=== PATIENT | female | born 1995 | race Caucasian/White ===

== ENCOUNTER → 2019-02-09 16:25 | Outpatient (CLI) | payer MEDICAID, SELFPAY ==
[2016-11-14 11:53] VITALS: BMI 27.9
== END ==
PROVIDERS: Visit Provider Obstetrics & Gynecology
DX: Z12.4 Encounter for screening for malignant neoplasm of cervix (principal)
CPT/HCPCS: 88175; G0145

== ENCOUNTER → 2019-09-13 13:40 | Outpatient (CLI) | payer MEDICAID, SELFPAY ==
[2016-11-14 11:53] VITALS: BMI 27.9
[2019-09-13 14:06] LABS: Internal QC Validated? YES +Cl - CLEAR BKGD
[2019-09-13 14:23] LABS: Pregnancy, Serum, hCG Quali. POSITIVE Negative (0-9 Nonpreg); hCG Titer Quant., Serum 26 mIU/mL (1-3)
--- OUTSIDE RECORDS SUMMARY | 2020-01-23 09:41 | XMS RPT_ITS | CCD ---
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 Negative for bowel obstruction, appendicitis or diverticu litis. [employer] Workstation ID: [id number] EXAMINATION: CT 03-08-2019 [facility] KIDNEY STONE ([id number]) 03/08/2019 HISTORY: ORDERING SYSTEM PROVIDED HISTORY: pain, TECHNOLOGIST PROVIDED HISTORY: Illness/Other Reason for exam: RT. SIDE AND FLANK PAIN. Encounter Type: Unknown Additional signs and symptoms: UNKNOWN ORDERING SYSTEM PROVIDED DIAGNOSIS CODES: COMPARISON: None. TECHNIQUE: Dose reduction techniques were achieved by using automated exposure control and/or adjustment of mA and/or kV according to patient size and/or use of iterative reconstruction technique. FINDINGS: CT ABDOMEN: Visualized portions of lower cardiac chambers, posterior mediastinal structures and lung bases demonstrate no acute abnormality. Liver, spleen, gallbladder, pancreas and adrenals appear unremarkable. Subcentimeter bilateral renal calculi are noted. An upper pole stone on the left within the calyx measures 3 mm in diameter. A stone caudal to this on image 25 is faintly noted measuring 2 mm. There is additional punctate 1 to 2 mm stone on image 30. There are additional 2 mm stones at the inferior pole calices also noted. On the right there are at least 2 punctate 1 to 2 mm stones at the upper pole identified. Midpole similar-appearing stone is seen on image 35. There are at least 3 stones at the inferior pole, largest measuring 3 mm. There is no hydronephrosis or ureterolithiasis. CT PELVIS: The urinary bladder is partially distended. The uterus is anteverted in position and enlarged measuring 11.6 x 5.7 x 7.8 cm. Trace volume of fluid within the cul-de-sac noted. Subcentimeter left-sided calcified pelvic phleboliths are noted. The ovaries appear unremarkable. Small umbilical hernia contains fat without bowel. Negative for appendicitis or diverticulitis. Aorta demonstrates normal caliber. No significantly enlarged adenopathy suspected. Multilevel lower thoracic and lumbar Schmorl's node formation is noted. There is disc space narrowing with vacuum disc phenomena formation and small disc bulge/protrusion at L4-L5. L4 and L5 limbus vertebra are noted incidentally. No acute osseous abnormality. Mild periarticular sclerosis about the SI joints, greater toward the iliac side noted. Albumin [Mass/Vol] 3.9 3.2 - 5.2 g/d 03-08-2019 [facility] L (57877) ALP [Catalytic 82 40 - 140 U/L 03-08-2019 [facility] activity/Vol] (14510 ) ALT [Catalytic 21 14 - 65 U/L 03-08-2019 [facility] activity/Vol] (98707 ) Anion gap 10 10 - 20 mmo [facility] [Moles/Vol] l/L (75626) AST [Catalytic 12 0 - 45 U/L 03-08-2019 [facility] activity/Vol] (42738 ) Bilirubin 0.3 0 - 1.3 mg/ 03-08-2019 [facility] h [Mass/Vol] dL (30127) Bilirubin.conjugat <0.1 0 - 0.4 mg/ 03-08-2019 [facility] ed [Mass/Vol] dL (21517 ) Calcium [Mass/Vol] 8.4 8.4 - 10.2 mg/ 03-08-2019 [facility] dL (71241) Chloride 105 98 - 108 mmo 03-08-2019 [facility] [Moles/Vol] l/L (65786) Creatinine 0.73 0.4 - 1.1 mg/ 03-08-2019 [facility] th [Mass/Vol] dL (33399) GFR/1.73 sq M The eGFR should be 019 [facility] predicted among used for monitoring (74839) non-blacks MDRD renal function only (S/P/Bld) [Vol and not for rate/Area] medication dosing. GFR/1.73 sq 116 >=60 03-08-2019 [facility] lth M.predicted mL/min/1.73 (97755 ) CKD-EPI (S/P/Bld) m2 [Vol rate/Area] Glucose [Mass/Vol] 112 65 - 99 mg/ High 03-08-2019 [facility] dL (45396) HCO3 [Moles/Vol] 26 21 - 32 mmo [facility] l/L (49122) Interpretation and Abnormal 03-08-2019 [facility] review of (48090) laboratory results Interpretation and Normal 03-08-2019 [facility] review of (76397) laboratory results Lipase [Catalytic 61 73 - 393 U/L Low 03-08-2019 [facility] activity/Vol] (96322 ) Potassium 3.9 3.5 - 5.1 mmo 03-08-2019 [facility] [Moles/Vol] l/L (09366) Protein [Mass/Vol] 7.1 6 - 8 g/d 03-08-2019 [facility] L (82767) Sodium [Moles/Vol] 137 135 - 145 mmo 03-08-2019 [facility] l/L (74636) Urea nitrogen 13 8 - 25 mg/ [facility] [Mass/Vol] dL (43279) Urea 17.8 OTH - OTH mg/ [facility] nitrogen/Creatinin mg ( 29589) e [Mass ratio] Bacteria Auto Ql Rare None Seen Abnormal 03-08-2019 [facility] (U) /hpf (76862) Bilirubin Ql (U) Negative Negative 03-08-2019 [facility] (36923) Calcium oxalate Rare None Seen Abnormal 03-08-2019 [facility] crystals Computer /hpf (4 3215) assisted (U) [#/Area] Clarity Hazy Clear Abnormal 03-08-2019 [facility] Refractometry (58244 ) automated (U) Color (U) Yellow Colorless, 03-08-2019 [facility] Yellow (48529) Epithelial 6 OTH - OTH High 03-08-2019 [facility] th cells.squamous (4321 5) Auto (Urine sed) [#/Area] Glucose Auto test Negative Negative 03-08-2019 [facility] strip (U) mg/dL (02640) [Mass/Vol] HCG ( Negative Negative 03-08-2019 [facility] test) Ql (U) (25580) Hemoglobin Auto Moderate Negative Abnormal 03-08-2019 [facility]Health test strip Ql (U) (4 3215) Interpretation and Abnormal 03-08-2019 [facility] review of (95066) laboratory results Interpretation and Normal 03-08-2019 [facility] review of (52497) laboratory results Ketones (U) Negative Negative [facility]-08-[facility] [Mass/Vol] mg/dL (92590) Leukocyte esterase Trace Negative Abnormal 03-08-2019 [facility] Auto test strip Ql ( 17321) (U) Mucus Auto (Urine Few None Seen, Abnormal 03-08-2019 [facility] sed) [#/Area] Rare /lpf (37052 ) Nitrite Auto test Negative Negative 03-08-2019 [facility] strip Ql (U) (27628) pH (U) 5.0 OTH - OTH [pH 03-08-2019 [facility] ] (82323) Protein (U) Negative Negative mg/ 03-08-2019 [facility] [Mass/Vol] mg/dL dL (35773) RBC Auto (Urine 46 OTH - OTH High 03-08-2019 [facility] sed) [#/Area] (89787 ) Specific gravity 1.029 OTH - OTH High 03-08-2019 [facility] (U) [Rel density] (4 3215) Transitional cells <1 OTH - OTH 03-08-2019 [facility] Computer assisted (4 3215) (U) [#/Area] Urobilinogen (U) <2.0 <2.0 mg/dL 03-08-2019 [facility] [Mass/Vol] (11087) WBC Auto (Urine 3 OTH - OTH 03-08-2019 [facility] sed) [#/Area] (30156 ) Microscopic 03-08-2019 [facility] lth examination is (4321 5) performed on all urinalysis samples and only positive findings are reported. The test for blood on the chemical analytic portion of urinalysis may also be positive due to hemoglobinuria and myoglobinuria and if red blood cells are present they are quantified by microscopic examination. Basophils (Bld) 0.05 OTH - OTH 10* 03-08-2019 [facility] [#/Vol] 3/u (69474) L Basophils/100 WBC 0.3 % 03-08-2019 [facility] (Bld) (51006) Eosinophils (Bld) 0.04 OTH - OTH 10* 03-08-2019 [facility] [#/Vol] 3/u (07212) L Eosinophils/100 0.3 % 03-08-2019 [facility] WBC (Bld) (88853) Erythrocyte 12.2 11.6 - 14.8 % 03-08-2019 [facility] ealth distribution width ( 60928) (RBC) [Entitic vol] Hematocrit (Bld) 39.2 36 - 46 % 03-08-2019 [facility] [Volume fraction] (4 3215) Hemoglobin (Bld) 13.3 12 - 16 g/d 03-08-2019 [facility] [Mass/Vol] L (96084) Immature 0.11 OTH - OTH 10* 03-08-2019 [facility] granulocytes (Bld) 3/u ( 27322) [#/Vol] L Immature 0.70 % 03-08-2019 [facility] granulocytes/100 (43 215) WBC (Bld) Comment: The IG parameter is the perc entage of metamyelocytes, myelocytes, and promyelocytes. Interpretation and Abnormal 03-08-2019 [facility] (68379) review of laboratory results Lymphocytes (Bld) 1.47 OTH - OTH 10*3/uL 03-08-2019 [facility] (98936) [#/Vol] Lymphocytes/100 WBC 9.5 % 03-08-2019 [facility] (89035) (Bld) MCH (RBC) [Entitic 31.3 26 - 34 pg 03-08-2019 [facility] (97435) mass] MCHC (RBC) [Mass/Vol] 33.9 31 - 37 g/dL 03-08-20 19 [facility] (29510) MCV (RBC) [Entitic vol] 92.2 80 - 100 fL 2018 [facility] (28690) Monocytes (Bld) [#/Vol] 1.05 OTH - OTH 10*3/uL High 2018 [facility] (72338) Monocytes/100 WBC (Bld) 6.8 % 2018 [facility] (01359) Neutrophils (Bld) 12.79 OTH - OTH 10*3/uL High 03-08-2019 [facility] (78612) [#/Vol] Neutrophils/100 WBC 82.4 % 03-08-2019 [facility] (09664) (Bld) Nucleated RBC (Bld) 0.00 OTH - OTH 10*3/uL 03-08-2019 [facility] (20713) [#/Vol] Nucleated RBC/100 WBC 0.0 % 03-08-20 19 [facility] (60540) (Bld) [Ratio] Platelet mean volume 10.7 9 - 15.5 fL 9 [facility] (24867) (Bld) [Entitic vol] Platelets (Bld) [#/Vol] 260 OTH - OTH 10*3/uL [facility] (65864[facility] RBC (Bld) [#/Vol] 4.25 OTH - OTH 10*6/uL 03-08-2019 [facility] (45662) WBC (Bld) [#/Vol] 15.51 OTH - OTH 10*3/uL High 03-08-2019 [facility] (49310) progress on 2018-06 Protein mass conc HNO ID: [id number] Normal [facility] Author: Alida Vasquez (Pharmacist) [facility] Service: Pharmacy ([phone]) Author Type: Pharmacist Type: Progress Notes Filed: 06/23/2018 9:39 AM Note Text: PHARMACY EMERGENCY DEPARTMENT CULTURE CALLBACK Patient Name:Stefani Padron Admission Date: 06/21/2018 Date of Callback: 06/23/2018 Patient Phone Number: NA Patient reviewed with: NA ALLERGIES No Known Allergies Source of Result: Results List Time/Date of Result: Type of Culture(s): wound Culture Results: Positive: mrsa Lab Results: n/a Home Medication List: Prior to Admission medications as of 06/21/18 1323 Medication Sig Last Dose Taking doxycycline monohydrate (AVIDOXY) 100 mg tablet Take 1 table t by mouth twice daily for 5 days. chlorhexidine (ANTISEPTIC SKIN CLNSR,CHLORHE,) 4 % external liquid Apply 1 application to affected area once daily as needed for up to 7 days. Change in treatment needed: No Action Taken: No further action needed Please page/call with any issues or questions. Electronic signature: LIZETT ANDERSON June 23, 2018 9:38 AM Pager/Extension: [phone] Protein mass conc HNO ID: [id number] Normal [facility] Author: Yolette Kuhn (Pharmacist) [facility] Service: ? ([id number]) Author Type: Pharmacist Type: Progress Notes Filed: 06/26/2018 2:35 PM Note Text: PHARMACY EMERGENCY DEPARTMENT CULTURE CALLBACK Patient Name:Stefani Padron Admission Date: 06/21/2018 Date of Callback: 06/26/2018 Patient Phone Number: na Patient reviewed with: na ALLERGIES No Known Allergies Source of Result: Results List Time/Date of Result: 06/26/18 Type of Culture(s): wound Culture Results: Positive: MRSA Lab Results: n/a Home Medication List: Prior to Admission medications as of 06/21/18 1323 Medication Sig Last Dose Taking doxycycline monohydrate (AVIDOXY) 100 mg tablet Take 1 table t by mouth twice daily for 5 days. chlorhexidine (ANTISEPTIC SKIN CLNSR,CHLORHE,) 4 % external liquid Apply 1 application to affected area once daily as needed for up to 7 days. Change in treatment needed: No Action Taken: No further action needed Final results reviewed. Pt prescribed doxycycline at dischar ge. Therapy appropriate per culture. No further intervention necessary. Please page/call with any issues or questions. Electronic signature: YOLETTE KUHN, PHARMACIST June 26, 2018 2:35 PM Pager/Extension: [phone] ed prov note on 201 12-08-16 Protein mass conc HNO ID: [id number] Normal [facility] Author: Court Rene MD [facility] Service: Emergency Medicine ([id number]) Author Type: Physician Type: ED Provider Notes Filed: 06/23/2018 5:10 AM Note Text: ED Provider Note Patient Name: Anders Padron SERVICE DATE: 06/21/18 History Patient presents with: Abscess The patient is a 23 year old female with a significant past medical history of right axillary abscesses status post IANDD on 06/09, who presents to the ED for evaluation of 2 right axillary lesion s over the past 2 days. She has wounds and abscess formation since the age of 8. She has had a higher frequency of these boils over the past 4 months, but she has never been prescribed antibiotics. She states she tr ies to clean the area as much as possible before shaving her armpits ever y 2-3 days. The area is exquisitely tender, fluctuant, and erythematous. There is a small pustule noted, which is not actively draining. The pat ient is a smoker but she does not have additional wound healing abnorm alities. The patient's symptoms are made worse with palpation. The patien t has not tried anything for her symptoms. The patient denies fever, c hills, nausea, vomiting, chest pain, dyspnea, or additional complaints. PAST MEDICAL HISTORY Diagnosis Date - Depression - Kidney stones PAST SURGICAL HISTORY Procedure Laterality Date - REMOVAL OF TONSILS,<12 Y/O Tonsillectomy FAMILY HISTORY Problem Relation Age of Onset - other (kidney stones) Mother - Heart Maternal Grandmother Heart stent - Lipids Maternal Grandmother Social History Tobacco Use - Smoking status: Current Every Day Smoker Types: Cigarettes - Smokeless tobacco: Never Used - Tobacco comment: vapor Substance and Sexual Activity - Alcohol use: No - Drug use: No - Sexual activity: Not on file ALLERGIES No Known Allergies Review of Systems Constitutional: Positive for fatigue. Negative for chills an d fever. Respiratory: Negative for shortness of breath and wheezing. Cardiovascular: Negative for chest pain. Gastrointestinal: Negative for abdominal pain, nausea and vo miting. Musculoskeletal: Negative for joint swelling and myalgias. Skin: Positive for wound. Negative for rash. Allergic/Immunologic: Negative for immunocompromised state. Neurological: Negative for weakness and numbness. Physical Exam BP 131/77 Pulse 87 Temp 98.2 Resp 16 Ht 5' 6 (1.68m ) Wt 135 lb (61.2kg) SpO2 97% LMP 06/21/2018 BMI 21.80 kg/(m2). O2 Therapy: Room Air Physical Exam Constitutional: She is oriented to person, place, and time. She appears well-developed and well-nourished. No distress. HENT: Head: Normocephalic and atraumatic. Right Ear: External ear normal. Left Ear: External ear normal. Mouth/Throat: Oropharynx is clear and moist. Eyes: Pupils are equal, round, and reactive to light. Conjun ctivae are normal. Neck: Normal range of motion. Cardiovascular: Normal rate, regular rhythm and normal heart sounds. Pulmonary/Chest: Effort normal and breath sounds normal. No respiratory distress. She has no wheezes. She has no rales. Abdominal: Soft. Bowel sounds are normal. She exhibits no di stension. There is no tenderness. There is no guarding. Musculoskeletal: Normal range of motion. She exhibits no heidi ma, tenderness or deformity. Neurological: She is alert and oriented to person, place, an d time. No cranial nerve deficit. Skin: Skin is warm and dry. No rash noted. There is erythema . No pallor. 2 small boils to the right axilla. One is larger and has a p ustule. The larger lesion is fluctuant, erythematous, and tender to palp ation. Nursing note and vitals reviewed. Diagnostic Testing ED Labs Ordered and Reviewed - No data to display INCISION/DRAINAGE Date/Time: 06/21/2018 2:26 PM Performed by: Jordan Murcia MD Authorized by: Court Rene MD Consent: Consent obtained: Verbal Consent given by: Patient Risks discussed: Bleeding, incomplete drainage, pain and inf ection Alternatives discussed: No treatment Location: Type: Abscess Location: Right axilla. Anesthesia (see MAR for exact dosages): Anesthesia method: Local infiltration Local anesthetic: Lidocaine 1% w/o epi Procedure type: Complexity: Simple Procedure details: Incision types: Stab incision Scalpel blade: 11 Wound management: Probed and deloculated and irrigated with saline Drainage: Serosanguinous Drainage amount: Moderate Wound treatment: Wound left open Packing materials: None Post-procedure details: Patient tolerance of procedure: Tolerated well, no immediate complications ED Course / Clinical Impression Clinical Impressions as of Jun 21 2114 Skin abscess MDM / Disposition / Plan The patient is a 23 year old female with a significant past medical history of right axillary abscess status post IANDD on 019, who presents to the ED for evaluation of 2 right axillary lesion s the past 2 days. The patient was evaluated by myself and the attending physician. The patient is hemodynamically stable. The patient appears t o be in no acute distress. Physical exam consistent with an abscess req uiring drainage. Bedside ultrasound suspicious for a loculated absc ess. The patient was given Motrin prior to local anesthetic injec tion. Cruciate incision was performed and a moderate amount of ser ous sanguinous discharge was extracted. Cultures were obtained and pending at the time of disposition. Due to her recurrent abscesses and surroundi ng cellulitis, the patient was discharged with a prescription f or doxycycline and chlorhexidine wash. She was instructed to use NSAIDs/Tyl enol for pain control. Follow-up instructions and return precautions were discussed. All questions were answered. The patient was agreeable with this plan. The patient was discharged in stable condition. SIGNATURE: Jordan Murcia MD Ultrasound Guided Abscess Drainage Indication ? Patient requires soft tissue abscess localization and drai nage Procedure in detail ? Using the linear probe covered in a sterile sheath was use d to exam the: Right skin of the axilla. ? The abscess was localized and seen to contain hypoechoic d ebris ? Still images or video images were saved for this of this e xam: Yes Conclusion Successful abscess localization and drainage This limited imaging study was performed by: Resident with A ttending supervision. Jordan Murcia MD Resident 06/21/[id number] This is an attending note. I did personally examine the ihsan ent. Agree with the resident's examination, assessment, plan and writte n documentation. Patient presents today with a right axillary abscess. The pa brenda states she has a history of frequent axillary abscesses however she believes she has one that will not need drainage. She states that she has had an area of tender swelling under her right armpit. No fevers or chil ls. No chest pain or abdominal pain. No other complaints. On examination vital signs are within normal limits. The pat iemikki is afebrile nontoxic. Heart is regular rate and rhythm with no murmur. Lungs are clear to auscultation bilaterally. Abdomen is soft and nontender. Normal strength all 4 limbs. The patient has a 1. 5 cm in diameter fluctuant and erythematous lesion in the right axil la. She has a smaller and nonfluctuant lesion adjacent in the right axilla . She is alert and oriented ?3. I was present and did supervise the resident physician in an ultrasound-guided incision and drainage. Purulent material w as expressed. This was sent for culture. Given the recurrent infections an d surrounding cellulitis the patient will be placed on oral an tibiotics at discharge. Court Rene MD 06/23/18 0510 ed note on ED NOTE HNO ID: [id number] Normal 06-21-2018 [facility] Author: Octavia (Rn) Cirilo, RN Center ([id number]) Service: Emergency Medicine Author Type: Registered Nurse Type: ED Notes Filed: 06/21/2018 1:22 PM Note Text: 2 rt axilla boils for 2 days, neg drainage cult and smr arnold and aer on 2018-06-21 Cult and Smr ARNOLD Test performed at [facility] Normal 06-21-2018 [facility] No anaerobic organisms cultured [facility] Few Gram positive cocci in clusters (39328) Many Polymorphonuclear leukocytes Many RBCs ORGANISM: *Methicillin Resist S.aureus (ID: 1) Moderate Comment: Performed By: #### C_ANA ### # [facility] [address] [id number] ed prov note on 201 12-08-04 Protein mass HNO ID: [id number] Normal 06-10-19 [facility] Author: Valarie Sanchez) [facility] Service: ? ([id number]) Author Type: Physician Marker Shipments Type: ED Provider Notes Filed: 06/09/2018 1:46 PM Note Text: ED Provider Note Patient Name: Anders Padron SERVICE DATE: 06/09/18 History Patient presents with: Abscess Patient is a 23-year-old female, PMH, renal stones, depressi on, presenting to the ED today for right axillary abscess that she states h as been there for 4 days. She denies any fever, nausea vomiting or drainag e. She states she had similar symptoms 2 weeks ago with the abscess weeks ago drained on its own. PAST MEDICAL HISTORY Diagnosis Date - Depression - Kidney stones PAST SURGICAL HISTORY Procedure Laterality Date - REMOVAL OF TONSILS,<12 Y/O Tonsillectomy FAMILY HISTORY Problem Relation Age of Onset - other (kidney stones) Mother - Heart Maternal Grandmother Heart stent - Lipids Maternal Grandmother Social History Tobacco Use - Smoking status: Current Every Day Smoker Types: Cigarettes - Smokeless tobacco: Never Used - Tobacco comment: vapor Substance and Sexual Activity - Alcohol use: No - Drug use: No - Sexual activity: Not on file ALLERGIES No Known Allergies Review of Systems Constitutional: Negative for appetite change, chills, diapho resis, fatigue and fever. HENT: Negative for congestion, drooling, facial swelling, no sebleeds, rhinorrhea, sinus pressure, sinus pain, sore throat and trou ble swallowing. Eyes: Negative for pain and redness. Respiratory: Negative for cough, choking, chest tightness, s hortness of breath, wheezing and stridor. Cardiovascular: Negative for chest pain, palpitations and le g swelling. Gastrointestinal: Negative for abdominal distention, abdomin al pain, blood in stool, constipation, diarrhea, nausea and vomiting. Genitourinary: Negative for difficulty urinating, dysuria, f lank pain and hematuria. Musculoskeletal: Negative for back pain, gait problem, joint swelling, neck pain and neck stiffness. Skin: Positive for wound. Negative for rash. Neurological: Negative for dizziness, tremors, syncope, weak ness, light-headedness, numbness and headaches. Psychiatric/Behavioral: Negative for agitation, confusion an d decreased concentration. The patient is not nervous/anxious. Physical Exam BP 138/89 Pulse 109 Temp (Src) 97.5 (Temporal) Resp 18 Ht 5' 6 (1.68m) Wt 135 lb (61.2kg) SpO2 100% LMP 05/19/2018 BMI 21.80 kg/(m2). Physical Exam Constitutional: She is oriented to person, place, and time. She appears well-developed and well-nourished. She is active and coopera tive. Non-toxic appearance. No distress. HENT: Head: Normocephalic and atraumatic. Mouth/Throat: Uvula is midline, oropharynx is clear and mois t and mucous membranes are normal. No oropharyngeal exudate, posterior or opharyngeal edema or posterior oropharyngeal erythema. Eyes: Pupils are equal, round, and reactive to light. Conjun ctivae and EOM are normal. Right eye exhibits no discharge. Left eye exhibi ts no discharge. No scleral icterus. Neck: Normal range of motion. Neck supple. No JVD present. N o spinous process tenderness and no muscular tenderness present. No ne ck rigidity. Normal range of motion present. Cardiovascular: Normal rate, regular rhythm and intact dista l pulses. No murmur heard. Pulses: Radial pulses are 2+ on the right side, and 2+ on the left s helena. Dorsalis pedis pulses are 2+ on the right side, and 2+ on th e left side. Pulmonary/Chest: Effort normal. No accessory muscle usage or stridor. No respiratory distress. She has no decreased breath sounds. Sh e has no wheezes. She has no rhonchi. She has no rales. She exhibits no tenderness. Abdominal: Soft. She exhibits no distension and no mass. The re is no tenderness. There is no rigidity, no rebound, no guarding an d no CVA tenderness. Musculoskeletal: GUADARRAMA, no lower extremity edema appreciated B/L Lymphadenopathy: She has no cervical adenopathy. Neurological: She is alert and oriented to person, place, an d time. She has normal strength. She displays no tremor. No sensory defi cit. Coordination and gait normal. 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 Capillary refill takes less than 2 seconds. No rash noted. She is not diaphoretic. No erythema. Psychiatric: She has a normal mood and affect. Nursing note and vitals reviewed. Diagnostic Testing ED Labs Ordered and Reviewed - No data to display INCISION/DRAINAGE Date/Time: 06/09/2018 1:38 PM Performed by: Valarie Issa (Pa) Authorized by: Valarie Issa (Pa) Consent: Consent obtained: Verbal Consent given by: Patient Risks discussed: Bleeding, incomplete drainage, infection an d pain Alternatives discussed: No treatment, delayed treatment and observation Location: Type: Abscess Size: 2cm Location: Upper extremity Upper extremity location: Arm Arm location: R upper arm Pre-procedure details: Skin preparation: Betadine Anesthesia (see JUN for exact dosages): Anesthesia method: Local infiltration Local anesthetic: Lidocaine 1% w/o epi Procedure type: Complexity: Simple Procedure details: Incision types: Stab incision Scalpel blade: 11 Wound management: Probed and deloculated and irrigated with saline Drainage: Purulent Drainage amount: Moderate Wound treatment: Wound left open Packing materials: None Post-procedure details: Patient tolerance of procedure: Tolerated well, no immediate complications ED Course / Clinical Impression Clinical Impressions as of Jun 09 1336 Abscess MDM / Disposition / Plan Course: Vital signs were reviewed. Triage records were reviewed. Medical records were reviewed Nursing notes were reviewed and incorporated. Medical Decision Makin-year-old female, PMH, renal stones, depression, presentin g to the ED today for right axillary abscess that she states has been th ere for 4 days. The patient appeared non-toxic, afebrile and remained stable during their stay in the emergency department. During their stay th e patient received incision and drainage of right axillary abscess wit h improvement of symptoms. Differential diagnosis of viral/infectious, inf lammatory, allergic, traumatic etiologies were considered. Due to the s ymptoms, physical exam findings pre and Postprocedure examination the most likely diagnosis isright axillary abscess with incision and drainag e without complications. Plan: 1. Verbal and written wound care instructions were given to patient. Follow up with PCP in 3 days. Patient is to return to the Emergency department if symptoms worsen or persist. The patient expressed an understanding of this plan and was in agreement. The patient was DISCHARGED: Counseled patient regarding susp ected diagnosis AND need for follow-up. Discharged home with verba l and written instructions. They were instructed to return as needed for p ersistent or worsening symptoms or any new concerns. Condition at time of disposition: improved and stable SIGNATURE: NOLBERTO Nick (Pa) 06/09/18 1346 ed note on ED NOTE HNO ID: [id number] Normal 06-09-2018 [facility] Author: Octavia BlackRn) Cirilo RN Christiana ([id number]) Service: Emergency Medicine Author Type: Registered Nurse Type: ED Notes Filed: 06/09/2018 12:51 PM Note Text: Rt axilla abcess for 4 days neg drainage progress on 2018-02 Protein mass conc HNO ID: [id number] Normal [facility] Author: Latesha Rivera [facility] Service: (none) (000 00) Author Type: (none) Type: Progress Notes Filed: 02/24/2018 9:01 AM Note Text: REVIEW OF SYSTEMS: GENERAL: Well developed, well nourished. No acute distress PAIN: Negative for pain, history of chronic pain or current treatment for chronic pain conditions CARDIOVASCULAR: Negative for chest pain, leg swelling and pa lpations. MSK: Negative for joint pain, swelling, back pain, muscle pa in. SKIN: Negative for lesions, rash, itching, metal sensitivity NEURO: Trauma 01-21-18 ENDOCRINE: Negative for Diabetes Type 1 and Type 2 HEMATOLOGY: Negative for excessive bleeding, clots, bleeding disorders. Protein mass conc HNO ID: [id number] Normal [facility] Author: Danny Paredes [facility] Service: (none) (000 00) Author Type: Physician Type: Progress Notes Filed: 02/24/2018 9:01 AM Note Text: 02/10/2018 Name:Anders Padron Date of :1995 History of Chief Complaint: Anders is seeing me as an establ ished patient today. I have been following a burn she sustained form a micaela ing bahena roughly 3 weeks ago. Complaint of pain. She is currently not working. She otherwise has no complaints today. She denies any numbness o r tingling in the finger. She has good motion. No other complaints. No fev ers, chills or night sweats. No past medical history on file. No past surgical history on file. Social History Marital status: Single Spouse name: Years of education: Number of children: Social History Main Topics Drug use: Unknown ALLERGIES No Known Allergies Current Outpatient Prescriptions: sulfamethoxazole/trimethoprim (BACTRIM ORAL) Take by mouth. Disp: Rfl: fluoxetine 10 mg ORAL tablet Take 10 mg by mouth once daily. Disp: Rfl: Norgestimate-Ethinyl Estradiol (ORTHO TRI-CYCLEN, 28,) 0.18/ 0.215/0.25 mg-35 mcg (28) ORAL Tab Take by mouth once daily. Disp: Rfl: No current facility-administered medications for this visit. VITALS Resp 16 Ht 162.6 cm (5' 4) Wt 65.8 kg (145 lb) BMI 24 .89 kg/m? PHYSICAL EXAMINATION: General: she is a well developed, well nourished female Psyche: she is alert and oriented and cooperative to our exa mination Skin: Skin condition is healthy without rashes or erythema. Cadiovascular: Palpable radial pulse with brisk cap refill d istally Neck: Supple with no JVD Lymph: There is no palpable epitrochlear Pulmonary: she has non labored breathing. There is no eviden ce of cyanosis. There is no clubbing of his fingernails. she has n o pursed lips. Neuro: she is alert and oriented x3. There are no focal neur ologic deficits. See sensation exam below. Head: Normocephalic and atraumatic Musculoskeletal: There is no swelling or ecchymosis. There a re no skin lacerations or abrasions. There are no Heberden's or Bouchar d's nodes. There is no boutonniere or swan-neck deformity of the finger s. There is no ulnar drift of the fingers. There is no intrinsic muscula r atrophy. There is a negative shoulder sign over the thumb CMC joint. There is no dorsal subluxation of the ulnar head. Small open wound less than 1 square cm on the ulnar aspect of her left index finger top. no drai nage or erythema. Fires profundus and sublimus tendon. Sensation int act. Brisk cap refill. There is a small scab of approx 2-3mm, no surroundin g erythema, no drainage. Sensation in tact to light touch. Full ROM. Imaging: none ASSESSMENT/PLAN: 1. Partial thickness burn of single finger of left hand excl uding thumb, subsequent encounter - ICD9: V58.89, 944.21, ICD10: T23.222D Plan: There are no signs of infection, erythema or ecchymosis. No restrictions at this time. Return to see me as needed Scribe Attestation Statement: Scribe Statement: I, Ton Apple, am scribing for, and in th e presence of Danny Paredes MD Scribe: Ton Apple Clinician Attestation Statement: The information in this doc ument, created by the medical logistics specialist for me, accurately reflects the servic es I personally performed and the decisions made by me. I have re viewed and approved this document for accuracy. Danny Paredes MD Please note: This note has been produced using [employer] software and may contain errors related to that system including gram mar, punctuation, spelling, gender and words and phrases that may be inappropriate. cnov on 2018-02-24 CNOV Office Visit (AGPOB3) Normal 02-25-20 18 [place] ANDERS Logan ([id number]) 1995 F Medical Date Time Provider Department Center 02/24/18 8:45 AM DANNY PAREDES JR AGPOB3 ([id number]) During your visit today, we recorded the following informati on about you: Respiration Weight Height 16/minute 65.8 kg 1.626 m Danny Paredes MD 02/24/2018 9:01 AM Signed 02/10/2018 Name:Anders Padron Date of :1995 History of Chief Complaint: Anders is seeing me as an establ ished patient today. I have been following a burn she sustaine d form a baking bahena roughly 3 weeks ago. Complaint of pain. She is currently n ot working. She otherwise has no complaints today. She den ies any numbness or tingling in the finger. She has good motion. No other complaints. No fevers, chills or night sweats. No past medical history on file. No past surgical history on file. Social History Marital status: Single Spouse name: Years of education: Number of children: Social History Main Topics Drug use: Unknown ALLERGIES No Known Allergies Current Outpatient Prescriptions: sulfamethoxazole/trimethoprim (BACTRIM ORAL) Take by mouth. Disp: Rfl: fluoxetine 10 mg ORAL tablet Take 10 mg by mouth once daily. Disp: Rfl: Norgestimate-Ethinyl Estradiol (ORTHO TRI-CYCLEN, 28,) 0.18/0.215/0.25 mg-35 mcg (28) ORAL Tab Take by mouth once daily. Disp: Rfl: No current facility-administered medications for this visit. VITALS Resp 16 Ht 162.6 cm (5' 4) Wt 65.8 kg (145 lb) BMI 24 .89 kg/m? PHYSICAL EXAMINATION: General: she is a well developed, well nourished female Psyche: she is alert and oriented and cooperative to our exa mination Skin: Skin condition is healthy without rashes or erythema. Cadiovascular: Palpable radial pulse with brisk cap refill d istally Neck: Supple with no JVD Lymph: There is no palpable epitrochlear Pulmonary: she has non labored breathing. There is no evid ence of cyanosis. There is no clubbing of his fingernails. she has no pursed l ips. Neuro: she is alert and oriented x3. There are no foca l neurologic deficits. See sensation exam below. Head: Normocephalic and atraumatic Musculoskeletal: There is no swelling or ecchymosis. There a re no skin lacerations or abrasions. There are no Heberden's or B ouchard's nodes. There is no boutonniere or swan-neck deformity of the fingers. The re is no ulnar drift of the fingers. There is no intrinsic muscular atrophy . There is a negative shoulder sign over the thumb CMC joint. There is no dorsal subluxation of the ulnar head. Small open wound less t soto 1 square cm on the ulnar aspect of her left index finger top. no drainage or er ythema. Fires profundus and sublimus tendon. Sensation intact. Brisk cap refill. There is a small scab of approx 2-3mm, no surroundi ng erythema, no drainage. Sensation in tact to light touch. Full ROM. Imaging: none ASSESSMENT/PLAN: 1. Partial thickness burn of single finger of left hand excl uding thumb, subsequent encounter - ICD9: V58.89, 944.21, ICD10: T23.222D Plan: There are no signs of infection, erythema or ecchymosis. N o restrictions at this time. Return to see me as needed Scribe Attestation Statement: Scribe Statement: ITon, am scribing for, and in th e presence of Danny Paredes MD Scribe: Ton Apple Clinician Attestation Statement: The information in this document, created by the medical logistics specialist for me, accurately reflects the services I personally performed and the decisions made by me. I have reviewed and approved this document for accuracy. Danny Paredes MD Please note: This note has been produced using speech recognition software and may contain errors related to that system including grammar, punctuation, spelling, gender and words and phrases that may be inappropr iate. Latesha Miguel TECH 02/24/2018 9:01 AM Signed REVIEW OF SYSTEMS: GENERAL: Well developed, well nourished. No acute distress PAIN: Negative for pain, history of chronic pain or current treatment for chronic pain conditions CARDIOVASCULAR: Negative for chest pain, leg swelling and pa lpations. MSK: Negative for joint pain, swelling, back pain, muscle pa in. SKIN: Negative for lesions, rash, itching, metal sensitivity NEURO: Trauma 01-21-18 ENDOCRINE: Negative for Diabetes Type 1 and Type 2 HEMATOLOGY: Negative for excessive bleeding, clots, bleeding disorders. Referring Provider: SELF [200] Allergies As of Date: 02/24/2018 (No Known Allergies) Date Reviewed: 02/24/2018 Reviewed by: Danny Paredes Jr. - Fully Assessed Reason for Visit: Follow Up [171] Cmt: left index finger Primary Visit Diagnosis:Partial thickness burn of sing le finger of left hand excluding thumb, subsequent encounter [T23.222D] Prescriptions as of 02/24/2018 Sig: * NORGESTIMATE-ETHINYL ESTRADIO* Take by mouth once daily. BACTRIM ORAL Take by mouth. * FLUOXETINE 10 MG TABLET Take 10 mg by mouth once lewis* Problem List As Of Date 02/24/2018 Noted Resolved Second degree burn of single finger of left soto*INVALID FOR* Disposition: Return if symptoms worsen or fail to improve. Follow-up and Disposition History Recorded Encounter Status:Closed by DANNY PAREDES MD on 02/24/18 progress on 2018-02 Protein mass HNO ID: [id number] Normal 02-11-20 [facility] Author: Danny Paredes Jr. Medical Service: (none) [facility] Author Type: Physician ([id number]) Type: Progress Notes Filed: 02/10/2018 3:34 PM Note Text: 02/10/2018 Name:Anders Padron Date of :1995 History of Chief Complaint: Anders is seeing me as a new pat ient today. She complains of a burn she sustained form a baking bahena 1 we ek ago. Complaint of pain. Concern of an infection. He is currently not working. She otherwise has no complaints today. She denies any numbne ss or tingling in the finger. She has good motion. PAST MEDICAL HISTORY Diagnosis Date - Depression - Kidney stones PAST SURGICAL HISTORY Procedure Laterality Date - REMOVAL OF TONSILS,<12 Y/O Tonsillectomy Social History Marital status: Single Spouse name: Years of education: Number of children: Occupational History Occupation Employer Comment none Social History Main Topics Smoking status: Current Every Day Smoker Packs/day: 0.00 Years: 0.00 Types: Cigarettes Smokeless tobacco: Never Used Alcohol use: No Drug use: No ALLERGIES No Known Allergies Current Outpatient Prescriptions: sulfamethoxazole/trimethoprim (BACTRIM ORAL) Take by mouth. Disp: Rfl: fluoxetine 10 mg ORAL tablet Take 10 mg by mouth once daily. Disp: Rfl: Norgestimate-Ethinyl Estradiol (ORTHO TRI-CYCLEN, 28,) 0.18/ 0.215/0.25 mg-35 mcg (28) ORAL Tab Take by mouth once daily. Disp: Rfl: No current facility-administered medications for this visit. VITALS Resp 16 Ht 162.6 cm (5' 4) Wt 65.8 kg (145 lb) BMI 24 .89 kg/m? PHYSICAL EXAMINATION: General: she is a well developed, well nourished female Psyche: she is alert and oriented and cooperative to our exa mination Skin: Skin condition is healthy without rashes or erythema. Cadiovascular: Palpable radial pulse with brisk cap refill d istally Neck: Supple with no JVD Lymph: There is no palpable epitrochlear Pulmonary: she has non labored breathing. There is no eviden ce of cyanosis. There is no clubbing of his fingernails. she has n o pursed lips. Neuro: she is alert and oriented x3. There are no focal neur ologic deficits. See sensation exam below. Head: Normocephalic and atraumatic Musculoskeletal: There is no swelling or ecchymosis. There a re no skin lacerations or abrasions. There are no Heberden's or Bouchar d's nodes. There is no boutonniere or swan-neck deformity of the finger s. There is no ulnar drift of the fingers. There is no intrinsic muscula r atrophy. There is a negative shoulder sign over the thumb CMC joint. There is no dorsal subluxation of the ulnar head. Small open wound less than 1 square cm on the ulnar aspect of her left index finger top. yellow exudate, no drainage or erythema. fires profundus and sublimus tendon. S ensation intact. Brisk cap refill. Imaging: none Assessment: 1. Partial thickness burn of finger of left hand, initial en counter Plan: Local wound care. Soak in hydrogen peroxide for 3 days. Foll ow up with me in 2 weeks. Scribe Attestation Statement: Scribe Statement: I, Ton Apple , am scribing for, and in t he presence of Danny Paredes MD Scribe: Ton Apple Please note: This note has been produced using [employer] software and may contain errors related to that system including gram mar, punctuation, spelling, gender and words and phrases that may be inappropriate. Protein mass HNO ID: [id number] Normal 02-11-20 18 [facility] Author: Adalgisa Smiley (Tech) Medical Service: (none) [facility] Author Type: First Helper ([id number]) Type: Progress Notes Filed: 02/10/2018 3:34 PM Note Text: REVIEW OF SYSTEMS: GENERAL: Well developed, well nourished. No acute distress PAIN: Negative for pain, history of chronic pain or current treatment for chronic pain conditions CARDIOVASCULAR: Negative for chest pain, leg swelling and pa lpations. MSK: Negative for joint pain, swelling, back pain, muscle pa in. SKIN: Lesion yes NEURO: Trauma 01-21-2018 ENDOCRINE: Negative for Diabetes Type 1 and Type 2 HEMATOLOGY: Negative for excessive bleeding, clots, bleeding disorders. cnov on 2018-02-10 CNOV Office Visit (AGPOB3) Normal 02-11-20 18 [place] AND[facility] Logan ([id number]) 1995 F Medical Date Time Provider Department Center 02/10/18 3:00 PM DANNY PAREDES JR AGPOB3 ([id number]) During your visit today, we recorded the following informati on about you: Respiration Weight Height 16/minute 65.8 kg 1.626 m Adalgisa Smiley, Md7 02/10/2018 3:34 PM Signed REVIEW OF SYSTEMS: GENERAL: Well developed, well nourished. No acute distress PAIN: Negative for pain, history of chronic pain or current treatment for chronic pain conditions CARDIOVASCULAR: Negative for chest pain, leg swelling and pa lpations. MSK: Negative for joint pain, swelling, back pain, muscle pa in. SKIN: Lesion yes NEURO: Trauma 01-21-2018 ENDOCRINE: Negative for Diabetes Type 1 and Type 2 HEMATOLOGY: Negative for excessive bleeding, clots, bleeding disorders. Danny Paredes MD 02/10/2018 3:34 PM Signed 02/10/2018 Name:Anders Padrno Date of :1995 History of Chief Complaint: Anders is seeing me as a new p atient today. She complains of a burn she sustained form a baking bahena 1 week ago. Complaint of pain. Concern of an infection. He is currently n ot working. She otherwise has no complaints today. She den ies any numbness or tingling in the finger. She has good motion. PAST MEDICAL HISTORY Diagnosis Date - Depression - Kidney stones PAST SURGICAL HISTORY Procedure Laterality Date - REMOVAL OF TONSILS,<12 Y/O Tonsillectomy Social History Marital status: Single Spouse name: Years of education: Number of children: Occupational History Occupation Employer Comment none Social History Main Topics Smoking status: Current Every Day Smoker Packs/day: 0.00 Years: 0.00 Types: Cigarettes Smokeless tobacco: Never Used Alcohol use: No Drug use: No ALLERGIES No Known Allergies Current Outpatient Prescriptions: sulfamethoxazole/trimethoprim (BACTRIM ORAL) Take by mouth. Disp: Rfl: fluoxetine 10 mg ORAL tablet Take 10 mg by mouth once daily. Disp: Rfl: Norgestimate-Ethinyl Estradiol (ORTHO TRI-CYCLEN, 28,) 0.18/0.215/0.25 mg-35 mcg (28) ORAL Tab Take by mouth once daily. Disp: Rfl: No current facility-administered medications for this visit. VITALS Resp 16 Ht 162.6 cm (5' 4) Wt 65.8 kg (145 lb) BMI 24 .89 kg/m? PHYSICAL EXAMINATION: General: she is a well developed, well nourished female Psyche: she is alert and oriented and cooperative to our exa mination Skin: Skin condition is healthy without rashes or erythema. Cadiovascular: Palpable radial pulse with brisk cap refill d istally Neck: Supple with no JVD Lymph: There is no palpable epitrochlear Pulmonary: she has non labored breathing. There is no evid ence of cyanosis. There is no clubbing of his fingernails. she has no pursed l ips. Neuro: she is alert and oriented x3. There are no foca l neurologic deficits. See sensation exam below. Head: Normocephalic and atraumatic Musculoskeletal: There is no swelling or ecchymosis. There a re no skin lacerations or abrasions. There are no Heberden's or B ouchard's nodes. There is no boutonniere or swan-neck deformity of the fingers. The re is no ulnar drift of the fingers. There is no intrinsic muscular atrophy . There is a negative shoulder sign over the thumb CMC joint. There is no dorsal subluxation of the ulnar head. Small open wound less t soto 1 square cm on the ulnar aspect of her left index finger top. yellow exudate, n o drainage or erythema. fires profundus and sublimus tendon. Sensation int act. Brisk cap refill. Imaging: none Assessment: 1. Partial thickness burn of finger of left hand, initial en counter Plan: Local wound care. Soak in hydrogen perox helena for 3 days. Follow up with me in 2 weeks. Scribe Attestation Statement: Scribe Statement: ITon , am scribing for, and in t he presence of Danny Paredes MD Scribe: Ton Apple Please note: This note has been produced using speech recognition software and may contain errors related to that system including grammar, punctuation, spelling, gender and words and phrases that may be inappropr iate. Referring Provider: SELF [200] Allergies As of Date: 02/10/2018 (No Known Allergies) Date Reviewed: 02/10/2018 Reviewed by: Danny Paredes Jr. - Fully Assessed Reason for Visit: New Patient [172] Cmt: left index finger Primary Visit Diagnosis:Partial thicknes s burn of finger of left hand, initial encounter [T23.222A] Prescriptions as of 02/10/2018 Sig: BACTRIM ORAL Take by mouth. * FLUOXETINE 10 MG TABLET Take 10 mg by mouth once lewis* * NORGESTIMATE-ETHINYL ESTRADIO* Take by mouth once daily. Problem List As Of Date: 02/10/2018 (None) Disposition: Return in about 1 week (around 02/17/2018). Follow-up and Disposition History Recorded Encounter Status:Closed by DANNY PAREDES MD on 02/10/18 wound culture on 22-01-29 WOUND CULTURE GRAM STAIN FEW WBC'S NO Normal [facility] ORGANISMS SEENORGANISM 1: Center [place] STAPH AUREUS,METHICILLIN ([id number]) RESISQUANTITATION MODERATESTAPH AUREUS,METHICILLIN RESIS: REACTION AMPICILLIN >8 R AMP/SULBACTAM (UNASYN) 16/8 R AUGMENTIN (AMOX/K CLVULANATE) >4/2 R CEFAZOLIN 16 R CHLORAMPHENICOL <8 S CLINDAMYCIN >4 R ERYTHROMYCIN >4 R GENTAMICIN <4 S IMIPENEM <4 R LINEZOLID 2 S OXACILLIN >2 R PENICILLIN >8 R RIFAMPIN <1 S TETRACYCLINE <4 S TRIMETH/SULFA <0.5/9.5 S VANCOMYCIN 2 S LEVOFLOXACIN <2 N/R MEROPENEM <4 R DAPTOMYCIN <0.5 S MOXIFLOXACIN <2 S Comment: Order Comment: [place]: Performed By: #### [id number] 0 ####[facility] [id number] [place], [place] [address]Qr# ed doc on 2018-01-06 ED PHYSICIA N ASSESSMENT RECORDS: FlexChartDataEvent Time: 01/31/2018 12:40 Normal 01-31-2018 [facility] DOC CJHAStatus: SignedLower [facility] Hospital DistrictNeetu Nereida [[id number]]Mid-Level Chart (V2b)23 / F / Medical 1995Chart created at 1 12:28 by Zeb Marquez closed at 01/31/2018 13:15Entry in Emergency Center Department at 01/31/2018 12: 07,departure at 01/31/2018 13:46Patient Name: Anders Padron Record Number: [place] [id number]: 01/31/2018 1 2:28Entered Department at: 01/31/2018 12:07 Patient Seen at:01/31/2018 12:15 Historian: ([id number]) PatientPCP: Dr. Trevino ([facility])Chief Complaint:LEFT FIRST DIGIT INJURY/REDNESSNursing triage/initial assessment reviewed and confirmedand In itial Vital Signs reviewed.Temperature: 98 F (36.7 C). Pulse: 112. Respiratory Rate:16. Blood-pressure:145/88. Oxyge n Saturation: 96%.History of Present Illness:This is an otherwise healthy 22-year-old female presentingwith chief complaint of left first digit painand swelling. 2 weeks ago she burned her finger at work,did have a blister form ed on this digit. 2 dayslater her mom drain the blister with a sewing needle. Overthe past couple weeks she has muir d developedincreased swelling pain and abscess formation to herfinger. She states she does get cool chills at times [facility] PATIENT NAME: ANDERS PADRON P[address] [facility] [address] Garcia MEDICAL REC #: [id number], [place] [address] [facility] CHART EMERGENCY DEPARTMENT PHYSICIANbut no subjective or objective fevers. It does not spreadup her finger to t his point. She has not triedto incise and drain on her own.Review of Systems. Musculo-Skeletal: Finger delicia n All othersystems reviewed and negative..Past History, Medications, Allergies, Social History andFamily History re viewed in nurses note.Medications: Reviewed RN Note.Allergies: Reviewed RN NoteNo Known AllergiesSocial History: Rev iewed RN Note.Family History: Reviewed RN NotePhysical Examination: General: Alert; Overall nontoxicwell-develop ed 22-year-old female vital signsreviewed, tachycardic at 112, afebrile HEENT: Normal ENTinspection. Eyes: Lids No rmal;. Oropharynx / Throat: Normal Pharynx. Neck: NoLymphadenopathy and Supple Respiratory:No Resp Distress and Normal Breath Sounds Cardio-Vascular:No murmur, No rub and RRR; TachycardicAbdomen: Normal Bowel Sounds, Non-ten yoon and SoftExtremity: No edema; Left second digit, distal phalanxhas evidence of felon, very tender to touch, the er ythemaand warmth does not extend past the distalphalanx, no paronychia presentNeurological: No Nkechi s Weakness Skin: No rash, NoPetechiae, Warm and Dry Psychological: Mood/AffectNormal and Normal Memory/JudgmentMedica l Decision MakingPatient presents with felon on her left index finger. Ithas progressed over the past couple weeks. It isisolated to the distal phalanx, there is no fusiformswelling or erythema to the digit. She is afebrile,tachy cardic likely secondary to the pain she isexperiencing. I consulted Dr. Greenfield, hand, recommendedincision and drainage and follow-up in the office , there is [facility] PATIENT NAME: ANDERS PADRON P[address] MEDICAL REC #: [id number], [place] [address] DEPARTMENT CHART EMERGENCY D EPARTMENT PHYSICIANa potential that she may need surgicaldebridement of the deep pulp spaces. We did successfullyd rain a copious amount of purulent materialafter large incision made with 11 blade, a lateralapproach. I did obtai n cultures, will be empiricallyplaced on Bactrim at the recommendation of Dr. Greenfield.Hemostasis obtained wit h pressure, wound careinstructions described at length. Patient is agreeable, 2days of Denton will also be prescribe d.Physician Performed ProceduresDigital block performed after cleaning proximal left indexfinger over the injecti on site with alcoholswab. Digital block performed with 1% lidocaine, total ml =6. Good anesthesia obtained, large i ncisionlateral approach from proximal to distal with 11 bladeneedle, there was significant purulent drainag eobtained. Loculations were broken up with curved hemostat.Hemostasis was obtained with pressure. I didobtain cultur es from the wound. Empiric antibiotictreatment. Dressing applied by nurse with gauze andCoban.Clinical Impression :1. Acute left second digit felon2. Procedure: Felon Incision and drainageDisposition: Discharged *Home. Condition: Fair at13:15Direct patient care supervision and electronicdo cumentation review by Elmer Davis on 01/31/201816:28.: FlexChartDataEvent Time: 01/31/2018 17:00Status: Sign [facility] CenterAnders Nereida [[id number]]Attending Physician [facility] PATIENT NAME: AND[facility] PADRON [facility] [facility] MEDICAL REC #: [id number], [place] [address] [facility] CHART EMERGENCY DEPARTMENT [id number] / F / 1995Chart (V2b)Chart created at 01/31/2018 16:28 by Elmer Roa closed at 01/31/2018 16:28Entry in Emergency Department at 01/31/2018 12:07,departure at 13:46Patient Name: Anders Padron Record Number: [id number]: 01/31/2018 16:28Entered Department at: 01/31/2018 12:07 Patient Seen at:01/31/2018 12:15 PCP: ([place])Chief Complaint:LEFT FIRST DIGIT I NJURY/REDNESSMSE completed.I was the primary ED attending..I confirm that I have reviewed the mid-level provi dersdocumentation and agree with the evaluation, planof care and disposition.. at 16:28 : Discharge ReportEvent Time: 01/31/2018 13:17===DISCHARGE REPORT===: FlexChartDataEvent Time: 01/31/2018 12:40 CJHA: FlexChartDataEvent Time: 01/31/2018 17:00: Discharge ReportEvent Time: 01/31/2018 13:17Status: DraftReasons to Return to the ER:You must return to the ER for any new , worsening orchanging symptoms, or if you feel more ill or sick inany way. This is the most important thing to remember.Follow-up: [facility] PATIENT NAME: ANDERS PADRON P[address] [facility] [address] Garcia MEDICAL REC #: [id number], [place] [address] DEP ARTMENT CHART EMERGENCY DEPARTMENT PHYSICIANThe care you received in the ER was given on an emergencybasis only, and it is often not possible tocompletely treat or diagnose a problem in a single ERvisit. You must see your follow-up doctor for arecheck within a week unless you receive instructions witha different timeframe for follow-up. Ple asefollow all your discharge instructions.Medications:Unless the ER doctor tells you differently, you should take all your regular medications and any newmedications prescribed today. Because it is not possiblefor the ER doctor to review all of yourmedication side effects or interactions, you must reviewpossible side effects and interactions wit h yourpharmacist when you get your prescriptions filled.EKG and Radiology Results:A paint technician or radiologist will review any EKG orradiology results provided by the ER doctor. We willcontact you if the results in the final EKG or radiologyreports require a change in treatment.Culture Results:Cultures may have been ordered during your ER visit. Wewill contact you if the culture results require achange in treatment.Referrals:Most ref errals to specialists come from the on-call listYou should make your regular doctor aware of anyreferrals before you schedule the appointment so that theyare aware and can make suggestionsDIAGNOSIS:Acute l eft second digit felon, Procedure: Felon Incisionand drainageINSTRUCTIONS: [facility] PATIENT NAME: ANDERS PADRON P[address] [facility] [address] Garcia MEDICAL REC #: [id number], [place] [address] DEP ARTMENT CHART EMERGENCY DEPARTMENT PHYSICIANAs we discussed, you have an open wound, please keep areaclean and co sindi at all times. Do not soak thedigit, go swimming or take baths as you have an open wound.Please call hand jame medeiros on Friday forappointment this week for reevaluation. Please takeantibiotics for entire course. If there is a nyresidual bleeding recommend significant pressure for 15-20minutes, return to the ER if you are to havesignificant r eaccumulation of fluid, finger swelling,fevers, chills or red streaking up your hand.After careful evaluatio n, the doctor feels that it is OK tosend you home at this time. Justbecause you were not admitted into the hospital t yumi doesnot mean that your infection may not becomeworse. Even very serious problems, like infectionsspreading int o the blood, may start with a normalexamination or test results. A cellulitis is the medicalterm for an infection of the skin caused bybacteria. An abscess occurs when an infection creates acollection of pus, called a boil.Lympha ngitis refers to the red streaks that occur when aninfection begins to spread under theskin. All of these infect ions are treated in a similarway. You must rest and elevate theinfected part of the body as much as possible. You candy uldalso apply warm packs to the infectedarea or soak the area in warm water 4 times per day for 20minutes each. If y ou had a boil, it mayhave been opened or drained in the emergency department.If it was drained, you may also have a packing inside the boil to allow it to drain even more.This packing should be removed in 2 to 3days by the doctor who rechecks you. Do not worry if thepacking falls out sooner and do not try toput it back in. While you are sick you s hould try andrest, drink plenty of fluids, and avoidalcohol and tobacco. Ahdf-qok-dgubsbd ibuprofen ( if youare not ) or acetaminophen may beused for aches, pains and fever. You should avoid aspirinunless y ou are taking this medication foranother reason. You must use all of your regularmedications plus all the medications that weregiven to you today.UNLESS THE ER DOCTOR GIVES YOU OTHER INSTRUCTIONS, YOU MUST [facility] PATIENT NAME: ANDERS PADRON P[address] [facility] [address] Garcia MEDICAL REC #: [id number], [place] [address] DEP ARTMENT CHART EMERGENCY DEPARTMENT PHYSICIANSEE YOUR FOLLOW-UP DOCTOR FOR RECHECK WITHIN2 TO 3 DAYS.YOU MUST R ETURN TO THE ER RIGHT AWAY FOR ANY OF THEFOLLOWING:New or increasing fever or chillsInfectedarea gets larg er or more painfulNew or increasing redstreaks appearNew or increasing drainageNew orincreasing vomitingNew or increasing weakness or confusionREFERRKita Greenfield MD (Orthopedics / Hand), ,fax: [phone] call the above number to schedule a follow-upappointment.next weekMEDICATIONSWe have given you these prescriptions that you must filland start taking:Bactrim DS 800 mg-160 mg tablet, count:20, Dose = 1,c ount:20, 10 days, count:20,2 times a day, count:20, Numberof Refills = 0, count:20Norco 5 mg-325 mg tablet, count:6, Dose =1 tablet,count:6,2 days, count:6,every 6 hours, count:6, Number ofRefills = 0, count:6, diagnosis: Post pro cedural painZ98.8, count:6COMMENTS:Patient Satisfaction:Within the first few days after your visit, you willreceive an email and/or phone call regarding yourvisit. We value your feedback, and would appreciate it ifyou would ta ke the time to complete this shortsurvey. If you receive a call, it will be between 6p and 8p.My signature below in dicates that I have received andunderstand the oral instructions regarding mymedical problem. I also acknowledge receipt of this written [facility] PATIENT NAME: ANDERS PADRON P[address] [facility] [address] Garcia MEDICAL REC #: [id number], [place] [address] [facility] EMERGENCY DEPARTMENT PHYSICIANinstruction sheet including a list of majortests and procedures or dered during my visit. I willarrange for follow-up care as indicated by theseinstructions and referr tiara.This signed original will be kept in my medical record.Your signature below indicates consent for [facility] [place] contact [facility] to meet your ongoing healthcare needs. This jasmyne llow forcontinuity of care once you leave theEmerozarks community hospitalcy Department. This exchange of informationwillinclude, but not be limited to, disclosure of yourpatient information and possible release ofrecords. ==DEMOGRAPHICS Emergisoft Patient: ANDERS PADRONSex: FDOB: 1995Age: 22 yrAccount No: [id number]: [id number] Date: 12:01/31/2018Address: [address]Address: [place] [address] CHAGSFJHWKFQ UF Number: [id number]: [facility] Status: SFinancial Class: CAIDHMO TRIAGE Priority: 4 - Semi UrgentComplaint: Finger InjuryStated Complaint: LEFT FIRST DIGIT INJURY/REDNESSArrival Date: 01/31/2018 12:07Triage Date: 01/31/2018 12:08Mode of Arrival: *Privately Owned VehicleWC: NLanguage: Armenian [facility] PATIENT NAME: ANDERS PADRON P[address] [facility] [address] Garcia MEDICAL REC #: [id number], [place] [address] [facility] EMERGENCY DEPARTMENT PHYSICIANTransport: Ambulatory/Walk In BED=== E38 In: 01/31/2018 12:11:57 01/31/201812:11:57 RANE38 (Removed From) Out: 01/31/2018 13:46:5010/2 10/2017 13:46:50 TJSB PROVIDERS NOLBERTO CHOUDHARY Provider Contact: 01/31/2018 12:14:46 CJMARYANNnd:MD Elmer Davis Provider Contact: 01/31/201812:14:48 TLSEnd:NORRIS Mcgill er Contact: 01/31/2018 12:16:28TJSBEnd: TRIAGE HISTORY A LLERGIESAllergic To: No Known Allergies 01/31/2018 12:09 TPJILLNESSIllness: *None 01/31/2018 12:09 TPJPAST [place] JULIO HISTSurgery: Tonsillectomy 01/31/2018 12:09 TPJPAST SOCIAL HISTSocial History: Alcohol - None 01/31/2018 12 :09 TPJSocial History: Recreational Drugs - None 01/31/201812:09 TPJ [facility] PATIENT NAME: ANDERS PADRON P[address] [facility] REC #: [id number], [place] [address] DEPARTMENT CHART EMERGENCY D EPARTMENT PHYSICIANSocial History: Smoker-bandamp;m PPD 01/31/201812:09 TPJSocial History: Have you traveled i n the past month?Where DENIES 01/31/2018 12:09 TPJPAST INTELLECTUAL PROPERTY LEGAL ASSISTANT HISTSocial History: Last Menstrual Period 1 WEEK AGO1 12:09 TPJIMMUNIZATIONSImmunization: Flu Vaccine-no 01/31/2018 12:09 TPJImmunization: Tetanus his tory unknown 01/31/2018 12:09TPJ NURSING ASSESSMENT ASSESSMENT NOTES 01/31/2018 12:57 Patient comes in for an abscess onleft fin margy. Patient burned her hand two weeks ago, Burnswelled up so patient drained with a sewing needle andNeosporin d ressing applied. 1 week later (today) patientreturns because of an abscess development on tip of finger.Patient sonu g sounds clear, alert and oriented x 4.01/31/2018 13:07 TJSB1 13:19 Gauze dressing applied to Iandamp; DSite. 01/31/2018 13:20 TJSB1 11:45 Culture Review - patient diagnosedwith Acute left second digit branden n, Procedure: FelonIncision and drainage; discharged with prescription forBactrim DS PO BID [id number]. Wound culture r esulted withStaph aureus (MRSA), Bactrim sensitive. No additionalantibiotics necessary at this time. 02/03/2018 11: 46 JMHC TREATMENT 01/31/2018 12:21 Primary DOC Guide - A. Patient History [facility] PATIENT NAME: ANDERS PADRON P[address] [facility] [address] 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 Fall RiskAssessment (Age andlt;65) 01/31/2018 12:23 T JSBHistory of Falling in last 3 months? No (0)Confusion or Disorientation? No (0)Intoxicated or Sedated? N o (0)Impaired Gait? No (0)Mobility Assist Device Used? No (0)Altered Elimination? No (0)Fall Risk Score 1-2 Point s = Low Risk. 3-4 Points =Moderate Risk. 5 or more points = High Risk. 0Fall Score Greater andgt;= 3? No 018 12:22 Primary DOC Guide - D. PsychosocialAssessment 01/31/2018 12:23 TJSBOver the Last 2 weeks, how often have you had littleinterest or pleasure in doing things (0) Not at AllIs Psychosocial Assessment Score 3 or more? If score is3 or more please consult ED Navigator! NoTotal Psychosocial Assessment Score 0Over the last 2 weeks, how often have you been feelingdown, depressed or hopeless (0) Not at All01/31/2018 12:22 Primary DOC Guide - Kacey Lancaster y ViolenceAssessment 01/31/2018 12:23 TJSBIndicators of Neglect NoIndicators of Physical Abuse NoIndicators of Sexual Abuse NoIndicators of Verbal/Emotional Abuse NoWithin the past year, has anyone ever pushed, shoved,slapped, chok ed, hit, punched or kicked you: NoWithin the past year, has anyone ever pressured orforced you to have sexual activities when you did not want to: No [facility] PATIENT NAME: ANDERS PADRON [address] [facility] REC #: [id number], [place] [address] DEPARTMENT CHART EMERGENCY D EPARTMENT PHYSICIANDo you feel safe and well cared for: YesIs there a partner from a previous or currentrelations hip that is making you feel unsafe now: NoFamily Violence Clinical Observation All Negative Gnialx6401/31/2018 12 :22 Staff/ Patient Interaction -Introduced self and assessed patients needs. 01/31/201812:23 TJSB1 18 12:23 Staff/ Patient Interaction - Siderails up X2 and call light placed within reach. 01/31/201812:23 TJSB1 12:24 Physician Call - at 1224 01/31/2018 12:24 JLMB01/31/2018 12:50 Physician Call - Dr.SE Phelps at 1249 01/31/2018 12:51 JL01/31/2018 13:32 Admit/Discharge - *Dischargeinstructions/tests andamp; procedures/med list reviewed andprovided; prescriptions given to patient 01/31/2018 13:40IQIP41/27/20 18 13:32 Admit/Discharge - Ambulated withsteady gait home 01/31/2018 13:32 TJSB MEDICATIONS IV=== =I AND O VITALS VS- ROUTINE Time: 01/31/2018 12:10B/P: 145/88 - Right Upper Arm - S itting - MachinePulse: 112 - Awning Erector Resp: 16Sa02: 96 Room Air Temp: 98.00 F - Oral01/31/2018 12:11 RANVS-Pain Time: 01/31/2018 12:10 01/31 12:11 [facility] PATIENT NAME: ANDERS PDARON[address] [facility] [address] MEDICAL REC #: [id number], [place] [address] [facility]PART [facility] EMERGENCY DEPARTMENT PHYSICIANRANVS-GCS Time: 01/31/2018 12:10 Visual: 4 Verbal: 5 Motor:6 GCS Total: 15 01/31/2018 12:11 RANVS-HT/WT Time: 01/31/2018 12:10 Weight: 145 lbs Tfalsl9101/31/2018 12:11 RANVS-Visual Time: 12:10 01/31/2018 12:11 RANVS-FHT Time: 01/31/2018 12:10 01/31/2018 12:11RANVS-Notes Time: 01/31 12:10 height 56 stated. [id number] 01/31/2018 12:11 RANVS-ROUTINE Time: 01/31/2018 13:20B/P: 132/81 - Left Uppe r Arm - Sitting - MachinePulse: 98 - Awning Erector Resp: 16Sa02: 100 Room Air Temp: 98.10 F - Oral01/31/2018 13: 21 TJSBVS-Pain Time: 01/31/2018 13:20 Pain Level: 13:21 TJSBVS-GCS Time: 01/31/2018 13:20 01/31/2018 13:21 TJSBVS-HT/WT Time: 01/31/2018 13:20 01/31/2018 13:21 TJSBVS-Visual Time: 01/31/2018 13:20 01/31/2018 13:21 TJSBVS-FHT Time: 01/31/2018 13:20 01/31/2018 13:21TJSBVS-Notes Time: 01/31/2018 13:20 01/31/2018 13:21 TJSBV S-ROUTINE Time: 01/31/2018 13:21 01/31/2018 13:21TJSBVS-Pain Time: 01/31/2018 13:21 01/31/2018 13:21TJSBVS-GCS T catina: 01/31/2018 13:21 Visual: 4 Verbal: 5 Motor:6 GCS Total: 15 01/31/2018 13:21 TJSBVS-HT/WT Time: 8 13:21 01/31/2018 13:21 TJSBVS-Visual Time: 01/31/2018 13:21 01/31/2018 13:21 TJSBVS-FHT Time: 01/31/2018 13:21 01/31/2018 13:21TJSBVS-Notes Time: 01/31/2018 13:21 01/31/2018 13:21 TJSB ORDE RS Zofran (PO)*(4mg tab) DOSE: 4 mgPO 01/31/2018 13:46N/AOrdered: 01/31/2018 13:39 By ZEB Quirozleted Time: 01/31/2018 13:46 By ZEB CHOUDHARY [facility] PATIENT NAME: ANDERS PADRON P[address] [facility] [address] MEDICAL REC #: [id number], [place] [address] [facility]PART [facility] EMERGENCY DEPARTMENT PHYSICIANPercocet (PO)*(325) DOSE:1 tabPO 01/31/2018 13:46N/AOrdered: 01/31/2018 13:39 By ZEB MCRAEompleted Time: 01/31/2018 13:46 By ZEB MCRAEulture wound aerobic 01/31/2018 13:57N/AO rdered: 01/31/2018 13:18 By ZEB MCRAEompleted Time: 01/31/2018 13:57 By ZEB Medrano Time: 01/31/2018 1 3:19 TJSBQuestion: Source of specimen?Answer: anna kahn, abscessQuestion: Elijah Source UnspecifiedAnswer: Unspecifi edQuestion: Elijah Description UnspecifiedAnswer: OtherResults Time: 02/02/2018 09:25Discharge patient 01/31 13:27N/AOrdered: 01/31/2018 13:15 By . OtherReviewed: 01/31/2018 13:27 By . Other DIS CHARGE Diagnosis: Acute left second digit felon, Procedure:Josemanuel Incision and drainage 2017 13:17Disposition: Time: 01/31/2018 13:15Discharge Time: 01/31/2018 13:46Type: DischargeCondition: Stab le for admission/discharge/transferafter emergency evaluation/treatment Category: *NOTAPPLICABLEReferral: 01/31/2018 13:17Admit Physician: . Other PRE SCRIPTIONS Bactrim DS 800 mg-160 mg tablet 01/31/2018 13:16 CJHASI bid for 10 daysDispense: 2 0 / Refills:Denton 5 mg-325 mg tablet 01/31/2018 13:17 CJHA [facility] PATIENT NAME: ANDERS PADRON P[address] [facility] [address] MEDICAL REC #: [id number], [place] [address] [facility] EMERGENCY DEPARTMENT PHYSICIANSI ta every 6 hours for 2 daysAdditional Instructions: diagnosis: Post proceduralpain Z98.8Dispense: 6 / Refills: CHARGES SIGNA [address] JUNIOR TJSB [facility] PATIENT NAME: ANDERS PADRON[address] [facility] [address] MEDICAL REC #: [id number], [place] [address] DEPARTMENT CHART EMERGENCY DEPARTME NT PHYSICIAN ED This is a preliminary report only, as the practitioner review and authentication has not occurred. Normal 02-01-20 18 [facility] atio [place] n ([id number]) msc on 2017-10-07 [facility] Normal 10-08-19 18 [facility] [place] ([id number]) MSC DATE OF SERVICE: Normal 10-07-[address] [facility] Medical 10/07/2017REASON FOR [facility] VISIT: Rash.HISTORY OF ([id number]) PRESENT ILLNESS: This is a 22-year-old female patient who has a rash forthe last 2 days. It is scattered around the body. She has itching, which is slowlyincreasing. Denied being exposed to anything new. Did not go out in the [place]. [place] in the yard. The patient stated that she has been with someone with poison renetta.Review of other systems normal.PAST MEDICAL HISTORY, FAMILY HISTORY, SOCIAL HISTORY: Reviewed.ALLERGIES: NKA.MEDICATIONS: None.PHYSICAL EXAMINATION: General: She is awake, alert, not in distress. No dyspnea.Vital Signs: Temperature 98.7, blood pressure 135/73, pulse 100, respirations 18,pulse oximetry 97% on room air. Pain score 0/10. Skin: She has multiple areas ofwell-defined erythematous spots scattered around the body, more on the right upperextremity. There is a dot in the center which appears to be insect bite. No blisteror pustule, and no skin excoriation. Clinically, it appears to be insect bitereaction to me. It is nontender and blanches on pressure. The rest of exam isnormal.ASSESSMENT: Insect bite reaction.PLAN: Clinical findings were discussed with the patient in detail. I explained toher right now appearance is not a poison renetta or related plant rash. It appears to beinsect bite reaction. I gave her Solu-Medrol 125 mg IM and Medrol Dosepak asdirected, 1 pack given, no refill. She will start tomorrow. She can use calaminelotion, take Benadryl, and follow with primary care physician for continuation ofcare. Patient understands and agreed. PraSARTHAK Nguyen/[id number]: 10/07/2017 12:17DT: 10/07/2017 14:26SSI File#: [id number] #: [id number]/Reviewed by11/26/17 1212 PAWPR [facility] PATIENT NAME: ANDERS PADRON P[address] [facility] [address] MEDICAL REC #: [id number], [place] [address] [facility] RE[facility] STATCARE PHYSICIAN patient summary documents on 2017-09-26 Patient Summary Documents Normal 09-06 [facility] ([place]) ([id number]) pat edu on Pat Edu Normal 09-26-2017 [facility] ([place]) ([id number]) ed note-provider on 2017-09-26 ED Note-Provider Normal 09-26-2017 [facility] ([place]) ([id number]) women's program inpatient summary on 2016-10-30 Women's Program Inpatient Normal 10-06 [facility] ([place]) Summary ([address]) ob progress note on 2016-10-30 OB Progress Note Normal 10-30-2016 [facility] ([place]) ([id number]) depart summary on 2 Depart Summary Normal 10-30-2016 [facility] ([place]) ([id number]) Vital Signs Vital Sign Description Value / Unit Date Location The following section is limited to 5 en tries per type and includes entries from the following time range: [id number] - [id number] 4. BMI (Body Mass Index) 24.21 kg/m2 03-10-2019 [facility] ([id number]) BMI (Body Mass Index) 24.21 kg/m2 03-08-2019 [facility] ([id number]) Body Temperature 98.2 [degF] 03-10-2019 [facility] (432 15) Body Temperature 97.7 [degF] 03-07-2019 [facility] (432 15) Body weight 68.04 kg 03-10-2019 [facility] (4321 5) Body weight 68.04 kg 03-08-2019 [facility] (4321 5) BP Diastolic 71 mm[Hg] 03-10-2019 [facility] (4321 5) BP Diastolic 77 mm[Hg] 03-08-2019 [facility] (4321 5) BP Systolic 136 mm[Hg] 03-10-2019 [facility] (4321 5) BP Systolic 135 mm[Hg] 03-08-2019 [facility] (4321 5) Height 167.6 cm 03-10-2019 [facility] (4321 5) Height 167.6 cm 03-08-2019 [facility] (4321 5) Pulse (Heart Rate) 82 /min 03-10-2019 [facility] (4 3215) Pulse (Heart Rate) 80 /min 03-08-2019 [facility] (4 3215) Pulse Oximetry 99 % 03-10-2019 [facility] (4321 5) Pulse Oximetry 100 % 03-08-2019 [facility] (4321 5) Respiratory Rate 15 /min 03-10-2019 [facility] (432 15) Respiratory Rate 18 /min 03-08-2019 [facility] (432 15) Encounters Date Type Reason Provider Location 10-30-2016 - Ambulatory [facility] Facility:A 10-30-2016 NONE PHYSICIAN 03-10-2019 - Emergency PHYSICIAN NO Vanessa Raei freda 03-10-2019 department patient JOVAN NG ([id number]) visit 03-10-2019 - Emergency [facility] 03-10-[facility] department patient Emergency visit Department Comment: Ureteral colic (Primary Dx); Abnormal vaginal bleeding 03-08-2019 - Emergency [facility] 03-08-2019 department patient PHYSICIAN NO ([id number]) visit 03-07-2019 - Emergency Flank pain [facility] 03-08-2019 department patient Emergency visit Department Comment: Flank pain (Primary Dx) 06-21-2018 - Emergency Willow Jolliff Facility:[facility] 06-21-2018 department [facility] patient visit [facility] 06-09-2018 - Emergency Willow Jolliff Facility:[place] 06-09-2018 department [facility]AL [facility] patient visit [facility] 01-31-2018 Emergency [facility] Facility:[facility] patient visit 09-26-2017 - Emergency [facility] Facility:A 09-26-2017 department CAROL SHEA patient visit 02-24-2018 - Patient encounter DANNY Facility:Pasquale MCLEAN 02-24-2018 procedure [facility] DANNY PAREDES JR 02-10-2018 - Patient encounter Burn of second DANNY Facility :GARCIA 02-10-2018 procedure degree of single [facility] GENER[facility] M EDICAL left finger [facility] (nail) except DANNY OTT thumb, initial EDNA MOSELEY encounter 10-07-2017 Patient encounter DANIA Stanley Facility: [facility] Procedures Procedure Name Date Provider Location Transvaginal doppler 03-10-2019 [facility] ([id number]) ultrasonography of pelvis Ct abdomen & pelvis w/contrast 03-10-2019 [facility] (45900) material Urinalysis 03-10-2019 [facility] (4321 5) Bilirubin.direct [Mass/volume] [facility]83125[facility] in Serum or Plasma Choriogonadotropin 03-10-2019 [facility] (35154) [Units/volume] in Serum or Plasma Complete blood count with white 03-10-2019 [facility] (56802) cell differential, automated Complete blood count with white 03-10-2019 [facility] (94079) cell differential, manual Comprehensive metabolic 2000 03-10-2019 Jovan Ng [facility] (22224) panel - Serum or Plasma CT of urinary tract 03-08-2019 Lucypasquale Shipman [facility] (95930) Basic metabolic 2000 panel - 03-08-2019 Lucy Shipman [facility] (50749) Serum or Plasma Choriogonadotropin ( 03-08-2019 [facility]onita [facility] (89697) test) [Presence] in Urine Complete blood count with white 03-08-2019 [facility] (74806[facility] cell differential, automated Complete blood count with white 03-08-2019 [facility] (19887[facility] cell differential, manual Hepatic function 2000 panel - 03-08-2019 Lucy Ramonita [facility] (58019) Serum or Plasma Lipase [Enzymatic 03-08-2019 [facility] (4 7185) activity/volume] in Serum or Plasma Urinalysis 03-08-2019 [facility] (432 15) Plan of Treatment Plan Description Date Location SEQUENTIAL INFLUENZA SEQUENTIAL INFLUENZA VACCINE 12-06-2018 [facility] (61634) VACCINE (#1) (#1) HPV VACCINES (1 - Female HPV VACCINES (1 - Female 2005 [facility] (13176) 2-dose series) 2-dose series) Wellness Visit Wellness Visit 1997 [facility] (4321 5) Chlamydia Screening Chlamydia Screening 1994 [facility] (91883) PAP SMEAR PAP SMEAR 1994 [facility] (4321 5) TETANUS EVERY 10 YR TETANUS EVERY 10 YR 1994 [facility] (09118) The following information is from the original human readable contentNot on file documented as of this encounter Payers Payer Name Policy Number Location [facility] MANAGED MEDICAID xxxxxxxxxxx [facility] ( [id number]) [facility] MEDICAID [id number] [facility] ([id number]) [id number] [facility] ([id number]) [id number] [facility] ([id number]) [id number] [facility] ([id number]) [id number] [facility] ([id number]) [id number] [facility] ([id number]) [id number] [facility] ([id number]) [id number] [facility] ( [phone]) [id number] [facility] ( [id number]) The following information is from the original human readable contentNo Payer Records Found Social History Type Social History Date Location Description Tobacco smoking status [facility] Alcohol intake Lifetime non-drinker 03-08-2019 - [facility] (46332) (finding) 03-10-2019 History SDOH Alcohol 1 03-08-2019 - [facility] (11137) Frequency 03-08-2019 Sex Assigned At Not on file [facility] (01706) Tobacco smoking status Current every day smoker 03-10-2019 [facility] (89791) [facility] The following information is from the original human readable contentNo Social History Records FoundNo Social History Records FoundNo Social History Records FoundNo Social History Records FoundNo Social History Records FoundNo Social History Records FoundNo Social History Records FoundNo Social History Records FoundNo Social History Records Found Summary Purpose Family History No Family History Records FoundNo Family History Records FoundNo Family History Records FoundNo Family History Records FoundNo Family History Records Found Advance Directives No Advanced Directives Records Found Documents on File Type Date Recorded Patient Wedding Day Coordinator Explanati on Advance Directives and Living 03/08/2019 12:30 AM Will Documents on File Type Date Recorded Patient Wedding Day Coordinator Explanati on Advance Directives and Living 03/10/2019 1:18 PM Will Discharge Instructions AttachmentsThe following attachments cannot be sent through Care Everywhere. Abdominal Pain (Armenian)documented in this encounterInsReba Asencio CNP - 03/10/2019Please use the Motrin as prescribed. Read and follow all pharmacy instructions for this medication. If you have any questions, ask the pharmacist, your primary care provider or return here. Follow-up with your INTELLECTUAL PROPERTY LEGAL ASSISTANT as well as your primary care provider as we discussed. Return to the ER for any new or worsening symptoms. AttachmentsThe following attachments cannot be sent through Care Everywhere. Kidney Stone Prevention Diet: General Info (Armenian)Vaginal Bleeding (Armenian) documented in this encounter Assessments Diagnosis Flank pain Abdominal pain, unspecified site Diagnosis Ureteral colic Renal colic Abnormal vaginal bleeding Other specified noninflammatory disorder of vagina Additional Source Comments FOR RECORDS PERTAINING TO PATIENTS WHO ARE OR HAVE BEEN ENROLLED IN A CHEMICAL DEPENDENCY/SUBSTANCE ABUSE PROGRAM, SOME INFORMATION MAY BE OMITTED. This clinical summary was aggregated from multiple sources. Caution should be exercised in using it in the provision of clinical care. This summary normalizes information from multiple sources, and as a consequence, information in this document may materially changethe coding, format and clinical context of patient data. In addition, data may be omittedin some cases. CLINICAL DECISIONS SHOULD BE BASED ON THE PRIMARY CLINICAL RECORDS. [facility] provides no warranty or guarantee of the accuracy or completeness of information in this document. UNRECOGNIZED CONTENT PROVIDED BELOW FOR UNRECOGNIZED SECTION INFORMATION SOURCE DATE CREATED AUTHOR AUTHOR'S ORGANIZATIO N 10/01/2017 Count Includes [facility] DATE CREATED AUTHOR AUTHOR'S ORGANIZATIO N 03/10/2018 [facility] DATE CREATED AUTHOR AUTHOR'S ORGANIZATIO N 06/27/2018 [facility] DATE CREATED AUTHOR AUTHOR'S ORGANIZATIO N 06/27/2018 [facility] DATE CREATED AUTHOR AUTHOR'S ORGANIZATIO N 03/12/2019 [facility] UNRECOGNIZED CONTENT PROVIDED BELOW FOR UNRECOGNIZED SECTION Reason for Visit Reason Comments Abdominal Pain Reason Comments Vaginal Bleeding UNRECOGNIZED CONTENT PROVIDED BELOW FOR UNRECOGNIZED SECTION ED Notes Lucy Abbott PA-C - 03/08/2019 12:18 AM EST [facility] ED Provider Note: NAME: Anders Padron 23 y.o. CSN: [id number] PCP: Physician No History: Chief Complaint: Abdominal Pain HPI: The history was obtained from the patient. She is a 23 y.o. female who presents with a chief complaint of Abdominal Pain. Patient states about 3 hours ago she started having severe right-sided lower abdominal and lower flank pain. States she has a history of kidney stones and does feel similar although she is not sure. She also thinks she may be but she not sure about that either. No vomiting no diarrhea no fevers or chills no recent illnesses. She did not eat anything right before the pain started PMHx: Past Medical History: Diagnosis Date ? Kidney stones PMSx: Past Surgical History: Procedure Laterality Date ? TONSILLECTOMY FAM. Hx: History reviewed. No pertinent family history. SOC. Hx: Social History Socioeconomic History ? Marital status: Single Spouse name: Not on file ? Number of children: Not on file ? Years of education: Not on file ? Highest education level: Not on file Occupational History ? Not on file Social Needs ? Financial resource strain: Not on file ? Food insecurity Worry: Not on file Inability: Not on file ? Transportation needs Medical: Not on file Non-medical: Not on file Tobacco Use ? Smoking status: Never Smoker ? Smokeless tobacco: Never Used Substance and Sexual Activity ? Alcohol use: Never Frequency: Never ? Drug use: Yes Frequency: 1.0 times per week Types: Marijuana ? Sexual activity: Not on file Lifestyle ? Physical activity Days per week: Not on file Minutes per session: Not on file ? Stress: Not on file Relationships ? Social connections Talks on phone: Not on file Gets together: Not on file Attends cheondoism service: Not on file Active member of club or organization: Not on file Attends meetings of clubs or organizations: Not on file Relationship status: Not on file Other Topics Concern ? Not on file Social History Narrative ? Not on file MEDs: No current outpatient medications on file prior to encounter. ALL: No Known Allergies ROS: Positives and pertinent negatives as per HPI. All other systems were reviewed and are negative. Physical Exam: Patient Vitals for the past 24 hrs: BP Temp Temp src Pulse Resp SpO2 Height Weight 03/08/19 0011 ? 5' 6 68 kg (150 lb) 03/07/19 2356 129/79 97.7 ?F (36.5 ?C) Oral 99 18 99 % ? ? Physical Exam Vitals signs and nursing note reviewed. Constitutional: General: She is not in acute distress. Appearance: She is well-developed. HENT: Head: Normocephalic and atraumatic. Eyes: Conjunctiva/sclera: Conjunctivae normal. Neck: Musculoskeletal: Normal range of motion and neck supple. Cardiovascular: Rate and Rhythm: Normal rate and regular rhythm. Pulmonary: Effort: Pulmonary effort is normal. No respiratory distress. Breath sounds: Normal breath sounds. Abdominal: General: There is no distension. Palpations: Abdomen is soft. Tenderness: There is abdominal tenderness. Comments: Patient has tenderness in the right upper and right lower quadrants also over the right flank no specific CVA tenderness to percussion Musculoskeletal: Normal range of motion. General: No swelling, tenderness, deformity or signs of injury. Skin: General: Skin is warm. Findings: No rash. Neurological: General: No focal deficit present. Mental Status: She is alert and oriented to person, place, and time. Cranial Nerves: No cranial nerve deficit. Sensory: No sensory deficit. Motor: No weakness or abnormal muscle tone. Coordination: Coordination normal. Psychiatric: Behavior: Behavior normal. Thought Content: Thought content normal. Judgment: Judgment normal. Laboratory & Radiological Imaging (if done): Labs Reviewed BASIC METABOLIC PANEL - Abnormal; Notable for the following components: Result Value Glucose 112 (*) All other components within normal limits Narrative: The eGFR should be used for monitoring renal function only and not for medication dosing. LIPASE - Abnormal; Notable for the following components: Lipase 61 (*) All other components within normal limits URINALYSIS - Abnormal; Notable for the following components: Clarity, Urine Hazy (*) Specific [place] 1.029 (*) Blood, Urine Moderate (*) Leukocyte Esterase, Urine Trace (*) RBCs, Urine 46 (*) Bacteria, Urine Rare (*) Squamous Epithelial 6 (*) Calcium Oxalate Crystals Rare (*) Mucus, Urine Few (*) All other components within normal limits Narrative: Microscopic examination is performed on all urinalysis samples and only positive findings are reported. The test for blood on the chemical analytic portion of urinalysis may also be positive due to hemoglobinuria and myoglobinuria and if red blood cells are present they are quantified by microscopic examination. CBC WITH AUTO DIFFERENTIAL - Abnormal; Notable for the following components: WBC 15.51 (*) Neutrophils Abs 12.79 (*) Monocytes Abs 1.05 (*) All other components within normal limits HEPATIC FUNCTION PANEL - Normal HCG URINE, QUALITATIVE - Normal CBC AND DIFFERENTIAL Narrative: The following orders were created for panel order CBC w/ Diff. Procedure Abnormality Status --------- ------ CBC Auto Differential[[id number]] Abnormal Final result Please view results for these tests on the individual orders. CT Kidney Stone Non-public Result 1. Subcentimeter bilateral nonobstructive renal calculi are noted. 2. Small umbilical hernia contains fat without bowel. 3. Trace volume of free pelvic fluid within the cul-de-sac. 4. Negative for bowel obstruction, appendicitis or diverticulitis. Workstation ID: [id number] Procedures: Procedures ED Course / Medical Decision Making: Patient is much improved here in the emergency room even before her Toradol. She states that she still a little bit of pain but not anything like when she got here before. Urinalysis revealed that hematuria and she states she is not on her period She states that she thinks that this may be a kidney stone and I agree with the findings on the CAT scan along with the hematuria I think it is likely thatalona did pass a kidney stone. She states that she is got follow-up with her family doctor for reevaluation. If she has any other pain or problems she can return for reevaluation. . Clinical Impression: 1. Flank pain Disposition: Patient is being discharged to home Lucy Abbott PA-C [employer] [facility] Emergency Department Lucy Abbott PA-C 03/08/19 0200 Mary Jane Cosby RN - 03/08/2019 12:12 AM ESTPT ARRIVES TO THE ED WITH COMPLAINT OF ABDOMINAL PAIN THAT STARTED 3-4 HOURS AGO WHILE AT WORK. PT COMPLAINS OF PAIN ON THR RIGHT SIDE THAT IS AN 8/10 INTERMITENT. PT HAS TAKEN A MEDICATION CALL CRAMP TABS. PT COULD HAVE A CHANCE OF . PT IS ALERT AND ORIENTED X3. documented in this encounterReba Salinas CNP - 03/10/2019 2:17 PM EST [facility] ED MAXWELL Note: NAME: Anders Padron 23 y.o. CSN: [id number] PCP: Physician No History: Chief Complaint: Vaginal Bleeding HPI: The history was obtained from the patient. Anders is a 23 y.o. female who presents with a chief complaint of Vaginal Bleeding. Evaluated here on Friday for kidney stone. She states she has a longhistory of passing kidney stones and believes she passed one at that time. She had right flank pain but the pain continues despite having passed the stone. She was informed that she had a few more kidney stones located in her kidneys at that time as well. She also reports chills, body aches, urinary frequency and urgency. She also notes that she has had vaginal bleeding that started today as well. Itis not time for her normal menstrual cycle as that should start next week. Her last menstrual cycle was 02/11/2019. She is normally on time once a month and very regular. She contacted her doctor and was informed to come to the ER to rule out ectopic . She is not taking control as her and her are trying to conceive at this time. Unknown fever, no neck stiffness, no chest pain, shortness of breath, nausea, vomiting, diarrhea, bloody stools. PMHx: Past Medical History: Diagnosis Date ? Kidney stones PMSx: Past Surgical History: Procedure Laterality Date ? TONSILLECTOMY FAM. Hx: History reviewed. No pertinent family history. SOC. Hx: Social History Socioeconomic History ? Marital status: Single Spouse name: Not on file ? Number of children: Not on file ? Years of education: Not on file ? Highest education level: Not on file Occupational History ? Not on file Social Needs ? Financial resource strain: Not on file ? Food insecurity Worry: Not on file Inability: Not on file ? Transportation needs Medical: Not on file Non-medical: Not on file Tobacco Use ? Smoking status: Current Every Day Smoker ? Smokeless tobacco: Never Used Substance and Sexual Activity ? Alcohol use: Never Frequency: Never ? Drug use: Yes Frequency: 1.0 times per week Types: Marijuana ? Sexual activity: Not on file Lifestyle ? Physical activity Days per week: Not on file Minutes per session: Not on file ? Stress: Not on file Relationships ? Social connections Talks on phone: Not on file Gets together: Not on file Attends cheondoism service: Not on file Active member of club or organization: Not on file Attends meetings of clubs or organizations: Not on file Relationship status: Not on file Other Topics Concern ? Not on file Social History Narrative ? Not on file MEDs: No current outpatient medications on file prior to encounter. ALL: No Known Allergies ROS: Positives and pertinent negatives as per HPI. All other systems were reviewed and are negative. Physical Exam: Patient Vitals for the past 24 hrs: BP Temp Pulse Resp SpO2 Height Weight 03/10/19 1552 136/71 ? 82 15 99 % ? ? 03/10/19 1300 138/83 98.2 ?F (36.8 ?C) 95 16 98 % 5' 6 68 kg (150 lb) Physical Exam Vitals signs and nursing note reviewed. Constitutional: General: She is not in acute distress. Appearance: Normal appearance. She is well-developed. She is not ill-appearing, toxic-appearing or diaphoretic. HENT: Head: Normocephalic and atraumatic. Nose: Nose normal. Eyes: General: No scleral icterus. Conjunctiva/sclera: Conjunctivae normal. Neck: Musculoskeletal: Full passive range of motion without pain and neck supple. Cardiovascular: Rate and Rhythm: Normal rate and regular rhythm. Heart sounds: Normal heart sounds. No murmur. Pulmonary: Effort: Pulmonary effort is normal. No respiratory distress. Breath sounds: Normal breath sounds and air entry. Abdominal: General: Abdomen is flat. Bowel sounds are normal. There is no distension. Palpations: Abdomen is soft. Tenderness: There is abdominal tenderness in the right lower quadrant and suprapubic area. There isright CVA tenderness. Musculoskeletal: Right lower leg: She exhibits no swelling. No edema. Left lower leg: She exhibits no swelling. No edema. Skin: General: Skin is warm and dry. Capillary Refill: Capillary refill takes less than 2 seconds. Findings: No rash. Neurological: General: No focal deficit present. Mental Status: She is alert and oriented to person, place, and time. Psychiatric: Behavior: Behavior normal. Behavior is cooperative. Laboratory & Radiological Imaging (if done): Labs Reviewed COMPREHENSIVE METABOLIC PANEL - Abnormal; Notable for the following components: Result Value Chloride 109 (*) All other components within normal limits Narrative: The eGFR should be used for monitoring renal function only and not for medication dosing. URINALYSIS - Abnormal; Notable for the following components: Color, Urine Light Red (*) Clarity, Urine Hazy (*) pH, Urine 8.0 (*) Protein, Urine 30 (*) Blood, Urine Large (*) RBCs, Urine 172 (*) All other components within normal limits Narrative: Microscopic examination is performed on all urinalysis samples and only positive findings are reported. The test for blood on the chemical analytic portion of urinalysis may also be positive due to hemoglobinuria and myoglobinuria and if red blood cells are present they are quantified by microscopic examination. HCG, BLOOD, QUANTITATIVE - Normal Narrative: Males and non females: <5 mIU/mL Females during : 3-4 weeks 9-130 mIU/mL 4-5 weeks 75-2600 mIU/mL 5-6 weeks 850-20,800 mIU/mL 6-7 weeks 4000-100,200 mIU/mL 7-12 weeks 11,500-289,000 mIU/mL 12-16 weeks 18,300-137,000 mIU/mL 16-29 weeks 1,400-53,000 mIU/mL 29-41 weeks 940-60,000 mIU/mL BILIRUBIN, DIRECT - Normal CBC AND DIFFERENTIAL Narrative: The following orders were created for panel order CBC w/ Diff. Procedure Abnormality Status --------- ------ CBC Auto Differential[[id number]] Final result Please view results for these tests on the individual orders. CBC WITH AUTO DIFFERENTIAL US Pelvic Transvaginal With Color Flow Preliminary Result 1. No acute abnormality identified. 2. Normal endometrial stripe thickness of 4 mm. No myometrial mass. 3. The ovaries have a normal appearance. GJT/mld Workstation ID: [id number] CT Abdomen Pelvis With IV Contrast Only Non-public Result No bowel obstruction, obstructive uropathy or appendicitis. Bilateral nonobstructive nephrolithiasis. Prominent appearing uterus. Measures up to 11 cm in length. Partially distended bladder with nonspecific wall thickening. Workstation ID: [id number] MDM: CBC, CMP, hCG, urinalysis unremarkable. Ultrasound transvaginal shows no acute abnormality. No myometrial mass and ovaries appear normal. CT abdomen pelvis shows no bowel obstruction, obstructive uropathy or appendicitis. Continues to show bilateral nonobstructive nephrolithiasis. Appearance of the uterus is normal, partially distended bladder. Patient given dose of Toradol and feeling better. She was more concerned regarding the possible ectopic and that proved to be negative at this time. We discussed close follow-up with primary care provider and INTELLECTUAL PROPERTY LEGAL ASSISTANT at this time. We will start her on Motrin 3 times per day. She has no concern for STD at this time and does not want to be checked. She will follow-up with INTELLECTUAL PROPERTY LEGAL ASSISTANT for the vaginal bleeding. She states she is going through 1 pad every 3-4 hours. I informed her to come back to theemergency department for any new or worsening symptoms including increasing bleeding or pain. Verbalized understanding. Discharged in stable condition. Clinical Impression: 1. Ureteral colic 2. Abnormal vaginal bleeding Disposition: Patient is being discharge home. New Prescriptions ibuprofen (ADVIL,MOTRIN) 800 MG tablet Take 1 (one) tablet (800 mg total) by mouth 3 (three) times a day for 5 days . Reba Salinas CNP ED Advanced Practice Provider [facility] (Please note that portions of this note have been completed with a voice recognition software. Efforts were made to correct any errors, but occasionally words are mis-transcribed.) Reba Salinas CNP 03/10/19 1600 Samira Arriaga RN - 03/10/2019 12:58 PM ESTPT STATES SHE WAS HERE ON Friday FOR A PASSING A KIDNEY STONE, PT STATES I HAVE BEEN SHIVERING UNCONTROLLABLY SINCE Friday AND I STILL HAVE THE PAIN IN MY BACK, PT STATES SHE IS ALSO EXPERIENCING VAGINAL BLEEDING, STATES SUPPOSED TO GET HER PERIOD IN ONE WEEK, STATES SHE IS NEVER USUALLY EARLY ORLATE, IT'S ALWAYS RIGHT ON TIME, PT STATES SHE CALLED HER DR AND DR TOLD HER TO COME TO ER TO GET TESTED FOR ECTOPIC , PT C/O INCREASED URINARY FREQUENCY AND LOWER ABDOMINAL PAIN WELL Shayne Kebede - 03/10/2019 12:54 PM ESTBed: 23 Expected date: Expected time: Means of arrival: Comments: Next pt documented in this encounter UNRECOGNIZED CONTENT PROVIDED BELOW FOR UNRECOGNIZED SECTION Miscellaneous Notes ED Attestation Note - Johanna Wilkins MD - 03/08/2019 2:06 AM SARAH Attestation: I did not see this patient. However, I was personally available for consult in the ED for this patient, if the Advanced Practice Provider (MAXWELL) needed any assistance. The MAXWELL evaluated the patient independently for a complaint of Abdominal Pain, and completed their own examination, documentation, and discharge. DX: Kidney stone documented in this encounterED Attestation Note - Jovan Ng MD - 03/10/2019 4:25 PM SARAH Attestation: I did not see this patient. However, I was physically present in the department and available for consult in the ED for this patient, if the Advanced Practice Provider ([facility]WE[facility]) needed any assistance. The MAXWELL evaluated the patient independently for a complaint of Vaginal Bleeding, and completed their own examination, documentation, and discharge. documented in this encounter
== END ==
PROVIDERS: PCP Family Medicine; Referring Provider Obstetrics & Gynecology; Visit Provider Obstetrics & Gynecology
DX: N91.2 Amenorrhea, unspecified (principal)
CPT/HCPCS: 84702; 84703

== ENCOUNTER → 2019-09-17 14:20 | Outpatient (CLI) | payer MEDICAID, SELFPAY ==
[2016-11-14 11:53] VITALS: BMI 27.9
[2019-09-17 15:06] LABS: hCG Titer Quant., Serum 220 mIU/mL (1-3)
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
== END ==
PROVIDERS: PCP Family Medicine; Referring Provider Obstetrics & Gynecology; Visit Provider Obstetrics & Gynecology
DX: N91.2 Amenorrhea, unspecified (principal)
CPT/HCPCS: 36415; 84702

== ENCOUNTER → 2019-10-13 13:36 | Outpatient (CLI) | payer MEDICAID, SELFPAY ==
[2019-10-13 17:37] LABS: Chlamydia Trachomatis by PCR Negative (Negative); Neisserai gonorrhoeae by PCR Negative (Negative)
[2019-10-13 17:38] LABS: Probe Check PASS; Sample Adequacy Control PASS; Specimen Processing Control PASS
== END ==
PROVIDERS: PCP Family Medicine; Visit Provider Obstetrics & Gynecology
DX: Z11.3 Encounter for screening for infections with a predominantly sexual mode of transmission (principal)
CPT/HCPCS: 87491; 87591

== ENCOUNTER → 2019-10-20 16:01 | Outpatient (CLI) | payer MEDICAID, SELFPAY ==
[2016-11-14 11:53] VITALS: BMI 27.9
[2019-10-20 17:12] LABS: Absolute Lymphocyte Count 2.23 X10^3/uL (0.83-4.51); Basophil# 0.04 X10^3/uL; Basophil% 0.3 % (0-1); Eosinophil# 0.11 X10^3/uL; Eosinophils% 0.8 % (0-5); Hemoglobin 14.4 g/dL (12.0-15.0); Lymphocyte # 2.23 X10^3/ul (4.0); Lymphocyte % 16.3 % (19-41); Mean Corp Hgb Conc 35.1 g/dL (32-36); Mean Corpuscular Hgb 32.5 pg (27.0-32.0); Mean Corpuscular Volume 92.6 fL (81-99); Mean Platelet Vol. 11.5 fl (6.2-12.0); Monocyte% 8.8 % (0-10); NRBC Flagged by Analyzer 0 % (0-5); Neutrophil # 10.02 X10^3/uL (2.7-7.7); Neutrophil % 73.4 % (47-70); Platelet Count 274 K/mm3 (150-450); RBC Distribution Width SD 40.6 fl (35.1-43.9); Red Blood Count 4.43 M/mm3 (4.2-5.4); White Blood Count 13.7 K/mm3 (4.4-11.0)
[2019-10-20 17:18] LABS: Glucose, Dipstick Normal (Normal); Ketone-Dipstick Negative (Negative); Leukocyte Esterase-Dipstick 25 /ul (Negative); Nitrite-Dipstick Negative (Negative); Occult Blood-Urine 10 /ul (Negative); Protein-Dipstick Negative (Negative); Urine Bilirubin Dipstick Negative (Negative); Urine Urobilinogen Normal (Normal)
[2019-10-20 17:20] LABS: Color, Urine Yellow (Yellow); Urine Clarity Clear (Clear)
[2019-10-20 17:50] LABS: Amphetamine Urine VISTA NEGATIVE (<1000 ng/mL); Barbiturate Urine VISTA NEGATIVE (< 200 ng/mL); Benzodiazepine Urine VISTA NEGATIVE (< 200 ng/mL); Cocaine Urine VISTA NEGATIVE (< 300 ng/mL); Ecstacy Urine VISTA NEGATIVE (< 500 ng/mL); Methadone Urine VISTA NEGATIVE (< 300 ng/mL); PCP Urine VISTA NEGATIVE (< 25 ng/mL); THC Urine VISTA POSITIVE (< 50 ng/mL); Vista UDS pH Range 6
[2019-10-21 03:25] LABS: Prenatal RPR NONREACTIVE (NONREACTIVE)
[2019-10-21 10:28] LABS: HIV - WCH Non-Reactive (Nonreactive); Hepatitis B Surface Antigen Non-Reactive (Nonreactive); Hepatitis C Antibody Non-Reactive (Nonreactive); Rubella IgG 112.3 IU/mL
== END ==
PROVIDERS: PCP Family Medicine; Visit Provider Obstetrics & Gynecology
DX: Z34.81 Encounter for supervision of other normal pregnancy, first trimester (principal)
CPT/HCPCS: 36415; 80307; 81002; 84443; 85025; 86703; 86762; 86803; 87340

== ENCOUNTER → 2020-03-17 13:29 | Outpatient (CLI) | payer MEDICAID, SELFPAY ==
[2020-03-17 14:56] LABS: Hematocrit 35.9 % (37-47); Hemoglobin 12.3 g/dL (12.0-15.0); Mean Corp Hgb Conc 34.3 g/dL (32-36); Mean Corpuscular Hgb 31.9 pg (27.0-32.0); Mean Corpuscular Volume 93.2 fL (81-99); Mean Platelet Vol. 11.7 fl (6.2-12.0); Platelet Count 253 K/mm3 (150-450); RBC Distribution Width CV 12.2 % (11.6-14.6); RBC Distribution Width SD 42.2 fl (35.1-43.9); Red Blood Count 3.85 M/mm3 (4.2-5.4); White Blood Count 11.4 K/mm3 (4.4-11.0)
[2020-03-17 15:05] LABS: Glucose Challenge Gest 1H 50g 127 mg/dL (70-140)
== END ==
PROVIDERS: PCP Family Medicine; Visit Provider Obstetrics & Gynecology
DX: Z34.83 Encounter for supervision of other normal pregnancy, third trimester (principal)
CPT/HCPCS: 36415; 82950; 85027

== ENCOUNTER → 2020-03-27 15:31 | Outpatient (CLI) | payer MEDICAID, SELFPAY ==
[2020-03-27 16:36] LABS: Fetal Fibronectin Negative
== END ==
PROVIDERS: PCP Family Medicine; Visit Provider Obstetrics & Gynecology
DX: R30.0 Dysuria (principal)
CPT/HCPCS: 82731; 87086; 87088

== ENCOUNTER → 2020-05-05 17:57 | Outpatient (CLI) | payer MEDICAID, SELFPAY | PROVIDERS: Visit Provider Obstetrics & Gynecology | DX: Z36.85 Encounter for antenatal screening for Streptococcus B (principal) | CPT/HCPCS: 87077; 87081; 87186 ==

== ENCOUNTER → 2020-05-12 14:37 | Outpatient (CLI) | payer MEDICAID, SELFPAY | PROVIDERS: PCP Family Medicine; Referring Provider Obstetrics & Gynecology; Visit Provider Obstetrics & Gynecology | DX: Z11.59 Encounter for screening for other viral diseases (principal) | CPT/HCPCS: 87635; C9803; U0005; U0003 ==

== ENCOUNTER 2020-05-18 06:48 | Inpatient (IN) | payer MEDICAID, SELFPAY ==
[2016-11-14 11:53] VITALS: BMI 27.9
[2020-05-18] VITALS (41 sets, daily range): BP systolic 108–148; BP diastolic 52–82; PULSE 72–106; RESP 16; TEMP 36.2–37.8; O2SAT 95–100; BMI 30.2
[2020-05-18] MEDS: Lactated Ringers 1,000 ML 50 ML IV (07:58)
[2020-05-18] MEDS: Oxytocin 30 units/NS 500 ml 30 UNITS/500 ML IV.SOLN IV (07:58)
[2020-05-18 08:17] LABS: Absolute Lymphocyte Count 1.96 X10^3/uL (0.83-4.51); Absolute Neutrophil Count 10.8 X10^3/uL (2.0-7.7); Basophil# 0.05 X10^3/uL; Basophil% 0.3 % (0-1); Eosinophil# 0.14 X10^3/uL; Hematocrit 38.3 % (37-47); Hemoglobin 12.8 g/dL (12.0-15.0); Lymphocyte # 1.96 X10^3/ul (4.0); Lymphocyte % 13.6 % (19-41); Mean Corp Hgb Conc 33.4 g/dL (32-36); Mean Corpuscular Hgb 31.8 pg (27.0-32.0); Mean Platelet Vol. 12.1 fl (6.2-12.0); Monocyte# 1.19 X10^3/uL; Monocyte% 8.2 % (0-10); NRBC Flagged by Analyzer 0 % (0-5); Neutrophil # 10.81 X10^3/uL (2.7-7.7); Neutrophil % 74.8 % (47-70); Platelet Count 232 K/mm3 (150-450); RBC Distribution Width CV 13.2 % (11.6-14.6); RBC Distribution Width SD 46.2 fl (35.1-43.9); Red Blood Count 4.03 M/mm3 (4.2-5.4); White Blood Count 14.5 K/mm3 (4.4-11.0)
[2020-05-18 08:31] LABS: AST(SGOT) 18 U/L (15-37); Alanine Aminotransfer ALT/SGPT 21 U/L (13-56); Creatinine, Serum 0.61 mg/dL (0.55-1.02); EST Glomerular Filtration Rate 126 mL/min (>60); Est Glom Filt Rate - Afr Amer 152 mL/min (>60); Uric Acid 3.5 mg/dL (2.6-6.0)
--- NOTE | 2020-05-18 08:52 | HP.PCM_ITS ---
<Raheem Perez - Last Filed: 05/18/20 08:52> History and Physical Date of Admission: 05/18/20 ACOG ANTEPARTUM RECORD - HISTORY AND PHYSICAL (05/18/2020) Name: CHARU SO History of this : This is a 25 year old [id number] presents at 38 wks + 6 days gestation who presents for induction for chronic hypertension and IUGR. care has been uneventful. OB Physician: Raheem Perez MD 's Physician: KESHA INSTRUMENT AND CONTROLS TECHNICIAN and Willow Ortiz M.D. ...................................................................... : 1995 Age: 25 Address: [address] [place] [address] Phone: H) [phone] (O) [phone] Insurance Carrier: [employer] CLAIMS DEPT [id number] Emergency Contact: MEAGAN HA [phone] ...................................................................... Final CHALINO: 05/26/20 By Ultrasound: 8 weeks 5 days PARITY: (G-Total Pregnancies P-Fullterm,Premature,Induced AB,Spont AB, Ectopics, Multiple,Living) CHALINO CONFIRMATION: By LMP: 08/16/19 Initial Exam: 05/22/20 By First Ultrasound Exam: 05/26/20 Final CHALINO: 05/26/20 OB PROBLEM LIST: desires AFP screen declines CF Desires Immediate IUD FOB AA, no testing for Sickle Cell trait GBS pos IUGR EFW 2510g <10% HC 3.7% AC 6.7%. Declines MFM consult and cord dopplers kidney stone hx Likely epidural Mild chronic HTN noted; start low dose labatalol New FOB (his first baby) Vapes - ATQ ALLERGIES: NKDA MEDICATIONS: labetalol 100 mg tablet One pill by mouth twice a day Macrobid 100 mg capsule One pill by mouth twice a day 28 mg iron-800 mcg tablet One pill by mouth once a day promethazine 12.5 mg tablet 1 to 2 pills by mouth every 6 hours as needed for nausea Tylenol Extra Strength 500 mg tablet One pill by mouth once a day prn SOCIAL HISTORY: Smoking - occasional--advised to quit and Uses Vapor Pen Alcohol Use - denies drinking Diet - moderate, balanced diet Lifestyle - moderate stress lifestyle Exercise - active Employer - [employer] Job Description - Illicit Drug Use - denies use of street drugs Sexual Activity - [employer] Residence - Lives with SO Place of - [place] Spouse-Sig Other Name - Chidi Strong WANB Spouse-Sig Other Occupation - [employer] Spouse-Sig Other Phone No - [phone] Children Name(s) - Ulysses(13), Arnulfo Major(17) PRIOR DELIVERY HISTORY DEL DATE GEST LAB WT LB WT OZ TYPE ANES LABOR TX 10 Nov 21 39 4 7 4 Vag Epidural No 26 Jan 17 40 11 7 4 Vag Epidural No ANTEPARTUM FLOW CHART VISIT GE RTC FU F F [place] U U DATE WK MD WKS HT PN HR M SS BP ED WT [place] GL D EF ST __ ____ ___ __ __ ___ __ __ __ ___ __ __ __ ___ __ 08 May JM 6 38 V on + 130/78 0 190 tr - 1 May JM 1 37 V on + 134/78 sl 187 - - Apr JM 1 37 V + + 132/70 0 187 - - Apr JMW 1 35 + + 118/72 0 182 tr ne Apr JM 2 33 V on + 102/62 0 180 tr ne Apr 06 JMW 2 31 + + 128/72 0 179 tr - cl TH hi Apr 05 JM 2 30 - + + 120/60 sl 179 tr - Jan 27 JMW 2 24 + + 140/70 0 177 30 Dec 24 JMW 4 20 + + 140/70 0 176 tr - 02 Dec 20 JMW 4 15 + ? 122/70 0 174 tr - Nov 16 JMW 3 + O 120/64 0 174 tr - 15 Oct 12 JMW 4 + US 134/68 0 165 - - ANTEPARTUM NOTE(S): May 15 2020: uncomfortable May 09 2020: see note May 05 2020: doing well, BPP today, LARC, IOL paperwork done Apr 26 2020: BPP 11/12Apr 11 2020: US today Mar 27 2020: FFN done, likely UTI, urine C and S Mar 17 2020: see note Feb 02 2020: start low dose labatalol Jan 05 2020: feeling well., US OK Dec 08 2019: Periodic Nausea/Fatigue, Declines AFP Nov 17 2019: nausea, anxiety Oct 20 2019: Doing Well COMPREHENSIVE ANTEPARTUM NOTE(S): May 15 2020: H taken to OB. tkg May 15 2020: 38wl, BPP today 11/12. cHTN on meds and IUGR. See previous note. COVID test neg. CE 1cm, failed swept membranes. IOL 05/18/20. JM May 09 2020: 37wk, GBS pos. Growth u/s today with newly dx IUGR EFW 2510g <10% HC 3.7% AC 6.7%. BPP 11/12. Educated on results and offered MFM consult and cord dopplers, r/b/a discussed, pt declines. Pt willing to get BPP this week and repeat BPP next week. Prior visits declined IOL but now willing to be induced but will not do induction this week. Okay with 05/18/20, scheduled. COVID testing ordered. cHTN on meds. WALKER May 09 2020: Charu is here for visit with BPP which is 8 out of 8. She relates more irregular ctx's but nothing strong or progressive. She is not sure what she wants to do. Considering cervix ck and stripping membranes but not sure. She will have further discussion with Dr Anusha Choe. Reviewed FM, SROM, and labor. LMT Induction scheduled for 05/18/20 @ 7 am. LMT May 08 2020: H taken to OB May 05 2020: 37wk, GBS collected today. cHTN on medication, BPP today 11/12. Repeat BPP next week. Pt borderline IUGR last growth, growth next week. Educated pt on 37-39 wk IOL for cHTN on medication, pt declines. Understands risks including demise, will consider sweeping membranes next visit. Desires IUD. WALKER Apr 26 2020: Ban is here following US for PNV. States she thinks she is having BH ctx. Will occ have tightening over abd. No LOF but is having some mucousy discharge when she uses restroom. Is ready at home for delivery of baby. No edema noted. Having good FM. Urine dipped tr and neg. No complaints for this visit. LSS Apr 11 2020: Charu is here following US for PNV. States she is feeling good without complaints. Good FM. No edema noted. Eating and getting fluids without difficulty. Urine dipped tr and neg. No CTX. No concerns for today. LSS Apr 11 2020: 33wk, growth U/s today for cHTN on no meds. Overally AGA EFW 10.5% HC 12.9% AC 14.1%. Based on borderline IUGR and cHTN will start weekly BPP's at next visit and growth u/s at 37wks. Currently will be for IOL at 38wks for cHTN. JM Mar 27 2020: Charu presents here today with FOB with concerns regarding abdominal tightening periodically x 2 days. Admits she started with diarrhea two days ago as well. Denies vomiting, headache or other concerns at this time. Urine Dip: Leuk- 2 +, Protein - trace, pH - 7.0. Blood - small +, Sp Gr - 1.005, Ketones - trace and all others negative. Urine to be sent for C and S to [facility]. FUAD Mar 17 2020: Doing well, no complaints. GCT, CBC today. Encouraged Influenza and Tdap. Will do Tdap but no Influenza. Reviewed FM. LMT Mar 17 2020: 30wk, 1hr GTT today. cHTN on Lebatolol 100mg BID. For growth u/s at next visit. JM Feb 02 2020: Charu is being seen for PNV. Pt is 23 weeks and 5 days. Pt complains of extra clear mcusu like discharge. Glucola given. Pt is very tear full today due to some personal issues. I talked to pt about possibly getting on medications for anxiety and she was trying to refrain from doing so. Pt has done counseling for a couple years now. AM Nov 17 2019: Charu is here for a PNV with FOB. She is doing ok. Nausea is still present, but has improved. Continues to use Promethazine and seabands. Has decreased vape pen use, advised to completely stop. Anxiety still present, pt report some days are better than others. Still would like AFP blood test, reminded pt it would be drawn between 15 and 19 weeks. MK Oct 22 2019: TELEHEALTH NOB VISIT. Charu is a 24 year old with an CHALINO of 05/26/2020, current GA is 9 w 0 d. She resides with SO/FOB (new FOB, his first baby), and her two sons from a prior relationship. Charu states that her FOB, Chidi Strong, is supportive. She is familiar with office practice patterns, and her labs were collected at her PNV on 10/20/2019. Delivery at [facility], with a likely labor epidural is planned, and she will breastfeed. Past history updated. Genetic Screening form completed on 10/20/2019, it was noted that Chidi is AA, but has not had Sickle Cell trait tested. She wishes to have AFP drawn, and declines CF testing; consent signed as such at last PNV. She states recent anxiety/crying and that she discussed this with DR. Perez on 10/20/2019; she declines medication for same. EPDS = 15/30 on 10/20/2019. Denies thoughts of harming self or others. She will call if she feels that she needs more help with anxiety, or has further concerns about her mental health. She states that she has been trying to cut back on her use of a Vape pen, ATQ entirely. On her Genetics Screening form, she wrote that she had used marijuana since her last period/being ; she denies current use; advised not to use again. She denies use of ETOH during . Emergencies/danger signs to report, round ligament pain, reporting a suspected UTI/kidney stones (she has a hx of kidney stones), and common OTC medications for minor ailments approved/not approved for use during . Charu walks every day with her sons, and plans to continue to do so. Lifting restrictions during discussed. Encouarged small frequent, balanced meals with protein included throughout the day, along with adequate water hydration of at least one gallon per 24 hours. She reports that from 6-8 weeks GA, she was very nauseated, but now she feels nauseated in the mornings, and has vomiting off and on. She is using Seabands for nausea and motion sickness. Reviewed dietary/water recommendations for nausea, as well as carb rich foods when nauseated, and also trying Vitamin B6 50 mg twice a day with Unisom at bedtime. Reviewed caloric needs, recommended weight gain, limiting empty calories, limiting caffeine to one cup a day, and food safety. Charu states that she understands all information provided during 40 minute NOB visit, and has no questions following same. AW New Oct 20 2019: Charu is her for PNV accompanied with boyfriend/ baby father. She has been having more emotions within the last week. She states that she has some depression. She is taking Tylenol, PNV and Promethazine. PN labs ordered. NOB papers given to patient and signed. Medications and allergies reviewed today, KIEL Oct 13 2019: Charu presents here today for Missed Menses appointment. 24 y.o. G 3 P 2 occasional smoker with additional use of Vapor Pen (ATQ ) with regular menses after IUD removed in with LMP of 08-16-19 lasting her average of 6 days. UPT is positive today in our Office. Presents here today at 8 weeks 2 days with an approximate CHALINO of 05-23-20. Denies spotting/bleeding thus far in . Reports having a lot of nausea and would like an Rx today for same. Tender Breasts noted. History of normal pap screenings from 2015 and last in 02/2019. Medication and Allergy lists up-dated. Educational Materials given. FUAD Oct 13 2019: ok REVIEW OF SYSTEMS: GENERAL - Denies fever, or chills SKIN - Denies rash, new skin lesions, or change in moles EYES - Denies blurred vision, or change in visual acuity EARS - Denies ear pain, or difficulty hearing NOSE - Denies nasal congestion, discharge, or bleeding MOUTH - Denies sore throat, or difficulty swallowing NECK - Denies pain or swelling RESPIRATORY - Denies shortness of breath, cough, wheezing CARDIOVASCULAR - Denies palpitations, chest pain, orthopnea, PND, peripheral edema, syncope or claudication GASTROINTESTINAL - Denies nausea, vomiting, diarrhea, constipation, Denies abdominal pain, melena and or bright red blood GENITOURINARY - Denies dysuria, frequency of urination, urgency, or hesitancy MUSCULOSKELETAL - Denies joint or muscle pain, or back pain NEUROLOGICAL - Denies localized numbness, weakness, or tingling PSYCHIATRIC - Denies depression, anxiety, substance abuse or suicide attempts ENDOCRINE - Denies heat or cold intolerance, weight loss or gain, increasing thirst HEMATO-IMMUNOLOGIC - Denies easy bruising, bleeding, oral ulcerations or recurrent infections GENETICS SCREENING: Age 35+ years: No Thalassemia: No Neural Tube Defect: No Down Syndrome: No RAMIREZ-SACHS: No Sickle Cell Disease: No Hemophilia: No Musc. Dystrophy: No Cystic Fibrosis: No-declines screening [place] Chorea: No Mental Retardation: No Fragile X: No Other genetic: No Other defects: No SABs/still births: No Drugs since LMP: No INFECTION HISTORY: High risk AIDS: No High risk Hepatitis: No Exposed to TB: No Exposed to Herpes: No Rash/viral illness since LMP: No History of STD: Yes and Chlamydia MENSTRUAL HISTORY: *Menses Amount/Duration: 6 daysMenses Regularity: RegularFrequency: variableMenarche (Age Onset): 10* PAST SUMMARY: PARITY: 1. Total Pregnancies............ 3 2. Full Term Pregnancies........ 2 3. Premature.................... 0 4. Abortions - Induced.......... 0 5. Abortions - Spontaneous...... 0 6. Ectopics..................... 0 7. Multiple Births.............. 0 8. Living Children.............. 2 PAST #1: Date of :.................. 01/30/13 Gestation Weeks:................ 40 Length of labor(hours):......... 11 Sex:............................ M Weight-lbs:............... 7 Weight-oz:................ 4 Type of Delivery:............... Vag Type of Anesthesia:............. Epidural Place of Delivery:.............. Exchange Treatment of Labor?:.... No Comment: PAST #2: Date of :.................. 11/14/16 Gestation Weeks:................ 39 Length of labor(hours):......... 4 Sex:............................ M Weight-lbs:............... 7 Weight-oz:................ 4 Type of Delivery:............... Vag Type of Anesthesia:............. Epidural Place of Delivery:.............. Matt Treatment of Labor?:.... No Comment: RAPID 2ND STAGE PHYSICAL EXAMINATION General Appearence: 25 yo female in no acute distress Vital Signs: AF, VSS Heart: RRR without rubs or gallops Lungs: CTA x 2 Breasts: deferred Abdomen: gravid Pelvis: Cervix: Presentation: cephalic Station: Fetus: Size: AGA Movement: present Heart: present LAB TEST(S) ORDERED SINCE:08/30/19 03/29/2020 CULTURE, URINE 03/27/2020 FIBRONECTIN 03/17/2020 GLUCOSE CHALLENGE GEST 1H 50G 03/17/2020 CBC-COMPLETE BLOOD CNT NO DIFF 10/21/2019 RUBELLA IGG 10/21/2019 RPR 10/21/2019 HIV - [facility] 10/21/2019 HEPATITIS C ANTIBODY 10/21/2019 HEPATITIS B SURFACE ANTIGEN 10/20/2019 URINE DRUG SCREEN (VISTA) 10/20/2019 URINALYSIS, ROUTINE (DIPSTICK) 10/20/2019 THYROID STIM HORMONE (TSH) 10/20/2019 T AND S-NO CHARGE W/PNP 10/20/2019 CBC W/DIFF, AUTOMATED 10/13/2019 CT/NG [facility] BY PCR 09/17/2019 HCG TITER QUANT., SERUM 09/13/2019 ,SERUM,HCG QUALI. 09/13/2019 HCG TITER QUANT., SERUM 05/15/2020 COVID 19, RISHI SENDOUT 05/09/2020 RULE OUT BETA STREP (GRP. B) == ==== Order Observation Description Value Ref_Range A* Site == ==== COVID 19, RISHI NOTE JAMA COVID 19, RISHI COVID-19,RISHI Not Detected Not Detected LCI This nucleic acid amplification test was developed and its performance characteristics determined by [facility]. Nucleic acid amplification tests include RT- PCR and TMA. This test has not been FDA cleared or approved. This test has been authorized by FDA under an Emergency Use Authorization (EUA). This test is only authorized for the duration of time the declaration that circumstances exist justifying the authorization of the emergency use of in vitro diagnostic tests for detection of SARS-CoV-2 virus and/or diagnosis of COVID-19 infection under section 564(b)(1) of the Act, 21 U.S.C. 360bbb-3(b) (1), unless the authorization is terminated or revoked sooner. When diagnostic testing is negative, the possibility of a false negative result should be considered in the context of a patient's recent exposures and the presence of clinical signs and symptoms consistent with COVID-19. An individual without symptoms of COVID-19 and who is not shedding SARS-CoV-2 virus would expect to have a negative (not detected) result in this assay. RULE OUT BETA S NOTE JAMA CULTURE, URINE NOTE JAMA FIBRONECT NOTE JAMA FIBRONECT FFN Negative ML GLUCOSE CHALLEN NOTE JAMA GLUCOSE CHALLEN GLU GEST 50G 1H 127 mg/dL 70-140 ML CBC-COMPLETE BL NOTE JAMA CBC-COMPLETE BL WBC 11.4 K/mm3 4.4-11.0 H ML CBC-COMPLETE BL RBC 3.85 M/mm3 4.2-5.4 L ML CBC-COMPLETE BL HGB 12.3 g/dL 12.0-15.0 ML CBC-COMPLETE BL HCT 35.9 % 37-47 L ML CBC-COMPLETE BL MCV 93.2 fL 81-99 ML CBC-COMPLETE BL MCH 31.9 pg 27.0-32.0 ML CBC-COMPLETE BL MCHC 34.3 g/dL 32-36 ML CBC-COMPLETE BL RDW CV 12.2 % 11.6-14.6 ML CBC-COMPLETE BL RDW SD 42.2 fl 35.1-43.9 ML CBC-COMPLETE BL PLT 253 K/mm3 150-450 ML CBC-COMPLETE BL MPV 11.7 fl 6.2-12.0 ML HEPATITIS C ANT NOTE JAMA HEPATITIS C ANT HEPATITIS C AB Non-Reactive Nonreactive ML Non Reactive: < 0.8 Equivocal: >/= 0.8 to < 1.0 Reactive: >/= 1.0 The CDC recommends that a reactive/equivocal HCV antibody result be followed up by the HCV Nucleic Acid Amplification test ([id number]) HEPATITIS B [place] NOTE JAMA HEPATITIS B [place] HEPB SURFACE AG Non-Reactive Nonreactive ML HIV - WCH NOTE JAMA HIV - WCH HIV - [facility] Non-Reactive Nonreactive ML RUBELLA IGG NOTE JAMA RUBELLA IGG RUBELLA IGG 112.3 IU/mL ML Antibody results Interpretation of Immune Status < 5 IU/ml Presumed Non-immune 5 - < 10 IU/ml Equivocal > or = 10 IU/ml Presumed Immune RPR NOTE JAMA RPR RPR NONREACTIVE NONREACTIVE ML THYROID STIM HO NOTE JAMA THYROID STIM HO TSH 0.60 uIU/mL 0.358-3.74 ML Reason for Type AND Screen/Red Cells: Surgery? [facility]~[address] [place], [address]~ T AND BLOOD TYPE GEL O POSITIVE N ML T AND AB SCREEN GEL NEGATIVE N ML URINE DRUG SCRE NOTE JAMA URINE DRUG SCRE TO BE CONFIRMED ML CONFIRMATORY TESTING FOR ALL POSITIVE URINE DRUG SCREEN RESULTS WILL ONLY BE SENT OUT UPON PHYSICIAN ORDER. VISTA Urine Drug Screen methods provide only preliminary analytical test results. A more specific alternate chemical method must be used in order to obtain a confirmed analytical result. Gas chromatography/mass spectrometery (GC/MS) is the preferred confirmatory method. Clinical consideration and professional judgement should be applied to any drug of abuse test result, particularly when preliminary positive results are used. URINE TCA TESTING MUST BE ORDERED SEPARATELY. USE TEST MNEMONIC: [facility]CA URINE DRUG SCRE VISTA UDS PH 6 ML URINE DRUG SCRE AMPHETAMINES NEGATIVE <1000 ng/mL ML URINE DRUG SCRE BARBITIURATES NEGATIVE < 200 ng/mL ML URINE DRUG SCRE BENZODIAZIPINE NEGATIVE < 200 ng/mL ML URINE DRUG SCRE COCAINE NEGATIVE < 300 ng/mL ML URINE DRUG SCRE ECSTACY NEGATIVE < 500 ng/mL ML URINE DRUG SCRE METHADONE NEGATIVE < 300 ng/mL ML URINE DRUG SCRE OPIATES NEGATIVE < 300 ng/mL ML URINE DRUG SCRE PCP NEGATIVE < 25 ng/mL ML URINE DRUG SCRE THC POSITIVE < 50 ng/mL H ML URINALYSIS, ROU NOTE JAMA URINALYSIS, ROU COLOR Yellow Yellow ML URINALYSIS, ROU CLARITY Clear Clear ML URINALYSIS, ROU GLUCOSE, UR Normal mg/dl Normal ML URINALYSIS, ROU BILIRUBIN URINE Negative mg/dL Negative ML URINALYSIS, ROU KETONE UR Negative mg/dl Negative ML URINALYSIS, ROU SP.GR. DIPSTX 1.020 1.002-1.030 ML URINALYSIS, ROU PH UR 6.0 5.0 - 8.0 ML URINALYSIS, ROU PROT DIPSTX Negative mg/dl Negative ML URINALYSIS, ROU UROBILI Normal mg/dl Normal ML URINALYSIS, ROU NITRITE UR Negative Negative ML URINALYSIS, ROU OCCULT BLOOD-UR 10 /ul Negative H ML URINALYSIS, ROU LEUK ESTERASE 25 /ul Negative H ML CBC W/DIFF, AUT NOTE JAMA CBC W/DIFF, AUT WBC 13.7 K/mm3 4.4-11.0 H ML CBC W/DIFF, AUT RBC 4.43 M/mm3 4.2-5.4 ML CBC W/DIFF, AUT HGB 14.4 g/dL 12.0-15.0 ML CBC W/DIFF, AUT HCT 41.0 % 37-47 ML CBC W/DIFF, AUT MCV 92.6 fL 81-99 ML CBC W/DIFF, AUT MCH 32.5 pg 27.0-32.0 H ML CBC W/DIFF, AUT MCHC 35.1 g/dL 32-36 ML CBC W/DIFF, AUT RDW CV 12.0 % 11.6-14.6 ML CBC W/DIFF, AUT RDW SD 40.6 fl 35.1-43.9 ML CBC W/DIFF, AUT PLT 274 K/mm3 150-450 ML CBC W/DIFF, AUT MPV 11.5 fl 6.2-12.0 ML CBC W/DIFF, AUT NEUT% 73.4 % 47-70 H ML CBC W/DIFF, AUT LY% 16.3 % 19-41 L ML CBC W/DIFF, AUT MONO% 8.8 % 0-10 ML CBC W/DIFF, AUT EO% 0.8 % 0-5 ML CBC W/DIFF, AUT BASO% 0.3 % 0-1 ML CBC W/DIFF, AUT IM GRAN % 0.400 % 0.0-0.9 ML IG% - Immature Granulocytes (promyelocytes, myelocytes and metamyelocytes) > 1% indicates that a LEFT SHIFT is Present. CBC W/DIFF, AUT ABSOLUTE NEUT 10.0 X10 3/uL 2.0-7.7 H ML CBC W/DIFF, AUT ABSOLUTE LYMPH 2.23 X10 3/uL 0.83-4.51 ML CBC W/DIFF, AUT NRBC, FLAGGED 0 % 0-[address]/NG WCH BY PC NOTE JAMA CT/NG WCH BY PC CHLAM TRAC PCR Negative Negative ML CT/NG WCH BY PC NG BY PCR Negative Negative ML HCG TITER QUANT NOTE JAMA HCG TITER QUANT HCG QUANT. 220 mIU/mL 1-3 H ML hCG levels with Gestational Age Gestational Age hCG mIU/mL (IU/L) 0.2 - 1 week 5 - 50 1-2 weeks 50 - 500 2-3 weeks 100 - 5000 3-4 weeks 500 - 60088 4-5 weeks 1000 - 70956 5-6 weeks 55476 - 100,000 6-8 weeks 18359 - 200,000 2-3 months 27799 - 100,000 HCG TITER QUANT NOTE JAMA HCG TITER QUANT HCG QUANT. 26 mIU/mL 1-3 H ML hCG levels with Gestational Age Gestational Age hCG mIU/mL (IU/L) 0.2 - 1 week 5 - 50 1-2 weeks 50 - 500 2-3 weeks 100 - 5000 3-4 weeks 500 - 68594 4-5 weeks 1000 - 23863 5-6 weeks 81586 - 100,000 6-8 weeks 83953 - 200,000 2-3 months 85463 - 100,000 ,SERUM NOTE JAMA ,SERUM HCGSQUAL POSITIVE Negative 0-9 Nonpreg H ML CRITICAL VALUE VERIFIED. CALLED TO [address] 09/13/19 [employer] Amy Kaplan. RESULTS READ BACK BY SAME . TEST is *POSITIVE* AMENDED REPORT 09/13/19 1423 HCGSQUAL previously reported as: POSITIVE > 10 Negative CRITICAL VALUE VERIFIED. CALLED TO [address] 09/13/19 [facility] Amy Kaplan. RESULTS READ BACK BY [employer] . STAGA Streptococcus agalactiae (B) TYRONE Amount Growth Growth Urine Culture Below infection level. ORGANISM 1: Lactobacillus species [place] Count 1000-10,000 ORGANISM 2: Presumptive C albicans [place] Count <1000 == ==== Impression /Plan: 38 wks + 6 days intrauterine for induction. Preparations in progress for delivery. <Solis Choe - Last Filed: 05/18/20 09:00> History and Physical 25-year-old at 38 and 6 for induction of labor for chronic hypertension on labetalol and IUGR 2510 g less than 10th percentile HC 3.7% AC 6.7% via Pitocin. Patient is GBS positive. Start penicillin. Will AROM after 4 hours penicillin.
[2020-05-18 09:38] LABS: Amphetamine Urine VISTA NEGATIVE (<1000 ng/mL); Barbiturate Urine VISTA NEGATIVE (< 200 ng/mL); Benzodiazepine Urine VISTA NEGATIVE (< 200 ng/mL); Cocaine Urine VISTA NEGATIVE (< 300 ng/mL); Ecstacy Urine VISTA NEGATIVE (< 500 ng/mL); Methadone Urine VISTA NEGATIVE (< 300 ng/mL); PCP Urine VISTA NEGATIVE (< 25 ng/mL); THC Urine VISTA POSITIVE (< 50 ng/mL); Vista UDS pH Range 6
[2020-05-18] MEDS: Labetalol 100 MG Tablet PO (10:11)
[2020-05-18] MEDS: Lactated Ringers 500 ML 999 ML IV (13:10)
--- NOTE | 2020-05-18 13:11 | PCM.PN.OB ---
Subjective: Pt seen and examined, comfortable at bedside - Physical Exam Vitals/I&O's: Vital Signs Pulse BP 75 148/72 H 05/18/20 12:33 05/18/20 12:33 Weight: 187 lb Body Mass Index (BMI) 30.2 Intake and Output for Last 24 Hours 05/16/20 05/17/20 05/18/20 23:59 23:59 23:59 Intake Total 132.13 / 132.13 Balance 132.13 / 132.13 General: Alert, Oriented x3, Cooperative, No apparent distress HEENT: Atraumatic, PERRLA, Normocephalic Oral: Moist Mucosa Neck: Supple Abdomen: Soft, Non Tender Extremities: No clubbing, No cyanosis Neurological: Neuro grossly intact Psych/Mental Status: Normal Affect, Appropriate, Alert and oriented to time, place, person, mood and affect Laboratory Results 05/18/20 07:57: WBC 14.5 H, RBC 4.03 L, Hgb 12.8, Hct 38.3, MCV 95.0, MCH 31.8, MCHC 33.4, RDW Std Deviation 46.2 H, RDW Coeff of Felice 13.2, Plt Count 232, MPV 12.1 H, Immature Gran % (Auto) 2.100 H, Neut % (Auto) 74.8 H, Lymph % (Auto) 13.6 L, [place] % (Auto) 8.2, Eos % (Auto) 1.0, Baso % (Auto) 0.3, Absolute Neuts (auto) 10.8 H, Absolute Lymphs (auto) 1.96, Nucleated RBC % 0 05/18/20 07:57: Blood Type O POSITIVE, Antibody Screen NEGATIVE 05/18/20 07:57: Creatinine 0.61, Est GFR (MDRD) Af Amer 152, Est GFR (MDRD) Non-Af 126, Uric Acid 3.5, AST 18, ALT 21 05/18/20 09:00: Urine Opiates Screen NEGATIVE, Urine Methadone Screen NEGATIVE, Ur Barbiturates Screen NEGATIVE, Ur Phencyclidine Scrn NEGATIVE, Ur Amphetamines Screen NEGATIVE, U Methamphetamin-MDMA NEGATIVE, U Benzodiazepines Scrn NEGATIVE, Urine Cocaine Screen NEGATIVE, U Cannabinoids Screen POSITIVE H, Ur Drug Screen Comment Current Medications Acetaminophen (Acetaminophen 500 Mg Tablet) 500 - 1,000 mg PO Q6H PRN PRN PRN Reason: Pain Score 1-3 Al Hydroxide/Mg Hydroxide (Mag Hydrox/Al Hydrox/Simeth 30 Ml Udc) 15 - 30 ml PO Q4H PRN PRN PRN Reason: INDIGESTION Citric Acid/Sodium Citrate (Sodium Citrate/Citric Acid 30 Ml Udc) 30 ml PO X1 PRN PRN Reason: Section Fentanyl Citrate (Fentanyl 100 Mcg/2 Ml Ampul) 25 - 50 mcg IV Q2H PRN PRN PRN Reason: Pain Score 4-10 Lactated Ringer's () 500 mls @ 999 mls/hr IV .Q31M PRN PRN Reason: Epidural Lactated Ringer's () 500 mls @ 999 mls/hr IV .Q31M PRN PRN Reason: Corrective Measures Lactated Ringer's () 1,000 mls @ 50 mls/hr IV .Q20H [facility] Last Admin: 05/18/20 07:58 Dose: 50 mls/hr Documented by: Oxytocin/Sodium Chloride () 30 units in 500 mls @ 2 mls/hr IV .Q250H [facility] Last Infusion: 05/18/20 12:31 Dose: 10 mls/hr Documented by: Penicillin G Potassium/Dextrose (Penicillin G Potassium) 3 mu in 50 mls @ 100 mls/hr IV Q4H [facility] Last Admin: 05/18/20 12:31 Dose: 100 mls/hr Documented by: Labetalol HCl (Labetalol 100 Mg Tablet) 100 mg PO BID [facility] Last Admin: 05/18/20 10:11 Dose: 100 mg Documented by: Ondansetron HCl (Ondansetron 4 Mg/2 Ml Vial) 4 mg IV Q4H PRN PRN PRN Reason: NAUSEA Prochlorperazine Edisylate (Prochlorperazine 10 Mg/2 Ml Vial) 10 mg IV Q6H PRN PRN PRN Reason: NAUSEA Sodium Chloride (0.9% Saline Lock 10 Ml Syringe) 10 - 40 ml IV X1 PRN PRN Reason: SALINE FLUSH Medical Necessity - Tobacco Use Smoking Status: Current every day smoker Assessment/Plan Pt seen and examined, AROM clear fluid. CE 1-2cm/50/-3. Pt considering epidural
[2020-05-18] MEDS: fentaNYL-bupivacaine (epidural) 100 ML BAG EPIDURAL ×2 (15:54→18:20)
[2020-05-18 16:32] LABS: Protein, Urine (Random) 23.2 mg/dL (<11.9); Protein:Creat Ratio 198 mg/g CRE (0-200)
[2020-05-18] MEDS: Lactated Ringers 1,000 ML 200 ML IV (16:42)
[2020-05-18] MEDS: Ondansetron 4 MG/2 ML Vial IV (17:08)
--- NOTE | 2020-05-18 18:17 | PCM.PN.OB ---
Subjective: Patient comfortable in bed - Physical Exam Vitals/I&O's: Vital Signs Temp Pulse BP Pulse Ox 97.7 F L 79 117/74 100 05/18/20 16:44 05/18/20 18:15 05/18/20 17:21 05/18/20 18:15 Weight: 187 lb Body Mass Index (BMI) 30.2 Intake and Output for Last 24 Hours 05/16/20 05/17/20 05/18/20 23:59 23:59 23:59 Intake Total 2181.73 / 2181.73 Output Total 800 / 800 Balance 1381.73 / 1381.73 General: Alert, Oriented x3, Cooperative, No apparent distress HEENT: Atraumatic Oral: Moist Mucosa Neck: Supple Extremities: No clubbing, No cyanosis Neurological: Neuro grossly intact Psych/Mental Status: Normal Affect, Appropriate, Alert and oriented to time, place, person, mood and affect Laboratory Results 05/18/20 07:57: WBC 14.5 H, RBC 4.03 L, Hgb 12.8, Hct 38.3, MCV 95.0, MCH 31.8, MCHC 33.4, RDW Std Deviation 46.2 H, RDW Coeff of Felice 13.2, Plt Count 232, MPV 12.1 H, Immature Gran % (Auto) 2.100 H, Neut % (Auto) 74.8 H, Lymph % (Auto) 13.6 L, [place] % (Auto) 8.2, Eos % (Auto) 1.0, Baso % (Auto) 0.3, Absolute Neuts (auto) 10.8 H, Absolute Lymphs (auto) 1.96, Nucleated RBC % 0 05/18/20 07:57: Blood Type O POSITIVE, Antibody Screen NEGATIVE 05/18/20 07:57: Creatinine 0.61, Est GFR (MDRD) Af Amer 152, Est GFR (MDRD) Non-Af 126, Uric Acid 3.5, AST 18, ALT 21 05/18/20 09:00: Urine Opiates Screen NEGATIVE, Urine Methadone Screen NEGATIVE, Ur Barbiturates Screen NEGATIVE, Ur Phencyclidine Scrn NEGATIVE, Ur Amphetamines Screen NEGATIVE, U Methamphetamin-MDMA NEGATIVE, U Benzodiazepines Scrn NEGATIVE, Urine Cocaine Screen NEGATIVE, U Cannabinoids Screen POSITIVE H, Ur Drug Screen Comment 05/18/20 09:00: U Random Total Protein 23.2 H, Urine Creatinine 117.00, Protein/Creatinin Ratio 198 Current Medications Acetaminophen (Acetaminophen 500 Mg Tablet) 500 - 1,000 mg PO Q6H PRN PRN PRN Reason: Pain Score 1-3 Al Hydroxide/Mg Hydroxide (Mag Hydrox/Al Hydrox/Simeth 30 Ml Udc) 15 - 30 ml PO Q4H PRN PRN PRN Reason: INDIGESTION Citric Acid/Sodium Citrate (Sodium Citrate/Citric Acid 30 Ml Udc) 30 ml PO X1 PRN PRN Reason: Section Ephedrine Sulfate (Ephedrine Sulfate 50 Mg/Ml Ampul) 10 mg IV Q10M PRN PRN Reason: hypotension Ephedrine Sulfate (Ephedrine Sulfate 50 Mg/Ml Ampul) 10 mg IM Q30M PRN PRN Reason: hypotension Fentanyl Citrate (Fentanyl 100 Mcg/2 Ml Ampul) 25 - 50 mcg IV Q2H PRN PRN PRN Reason: Pain Score 4-10 Fentanyl/Bupivacaine/Sodium Chlor (Fentanyl-Bupivacaine (Epidural) 100 Ml Bag) 0 ml EPIDURAL UD [facility]; Protocol Last Admin: 05/18/20 15:54 Dose: 100 ml Documented by: Lactated Ringer's () 500 mls @ 999 mls/hr IV .Q31M PRN PRN Reason: Epidural Last Infusion: 05/18/20 14:02 Dose: Infused Documented by: Lactated Ringer's () 500 mls @ 999 mls/hr IV .Q31M PRN PRN Reason: Corrective Measures Lactated Ringer's () 1,000 mls @ 50 mls/hr IV .Q20H [facility] Last Admin: 05/18/20 16:42 Dose: 200 mls/hr Documented by: Oxytocin/Sodium Chloride () 30 units in 500 mls @ 2 mls/hr IV .Q250H [facility] Last Infusion: 05/18/20 17:45 Dose: 18 mls/hr Documented by: Penicillin G Potassium/Dextrose (Penicillin G Potassium) 3 mu in 50 mls @ 100 mls/hr IV Q4H [facility] Last Infusion: 05/18/20 17:03 Dose: Infused Documented by: Labetalol HCl (Labetalol 100 Mg Tablet) 100 mg PO BID [facility] Last Admin: 05/18/20 10:11 Dose: 100 mg Documented by: Nalbuphine HCl (Nalbuphine 10 Mg/Ml Ampul) 5 mg IV Q3H PRN PRN PRN Reason: ITCHING Naloxone HCl (Naloxone 0.4 Mg/Ml Syringe) 0.02 mg IV Q1M PRN PRN Reason: RR <10 and pt unresponsive Ondansetron HCl (Ondansetron 4 Mg/2 Ml Vial) 4 mg IV Q4H PRN PRN PRN Reason: NAUSEA Last Admin: 05/18/20 17:08 Dose: 4 mg Documented by: Prochlorperazine Edisylate (Prochlorperazine 10 Mg/2 Ml Vial) 10 mg IV Q6H PRN PRN PRN Reason: NAUSEA Sodium Chloride (0.9% Saline Lock 10 Ml Syringe) 10 - 40 ml IV X1 PRN PRN Reason: SALINE FLUSH Medical Necessity - Tobacco Use Smoking Status: Current every day smoker Assessment/Plan Pt comfortable with epidural. Will continue expectant management.
[2020-05-18] MEDS: Oxytocin 30 units/NS 500 ml 30 UNITS/500 ML IV.SOLN 334 UNITS IV ×2 (19:00→19:39)
--- NOTE | 2020-05-18 19:18 | PCM.OPRPT ---
Vaginal Delivery Date of Procedure: 05/18/20 Pre-Operative Diagnosis: Term, chronic hypertension, IUGR Post-Operative Diagnosis: Term, Chronic hypertension, IUGR Surgery/ Procedure Performed: Spontaneous Vaginal Delivery Type of Anesthesia: Epidural Description of Procedure: Normal spontaneous vaginal delivery of a viable female , vertex JAVIER. Head and shoulders delivered with ease. Cord cut and clamped and baby handed off to nursing. Placenta delivered via manual extraction. No lacerations were noted. EBL 300 cc Apgars 8/9
--- NOTE | 2020-05-18 19:20 | DCINST_ITS ---
<Solis Choe - Last Filed: 05/18/20 19:20> Discharge Diet: No Restrictions Discharge Activity: Return to Normal Activity, May Drive, May Shower May resume sexual activity in: 6 weeks Weight Bearing Status: Weight bearing as tolerated Call your doctor if your incision/area has: Foul Smelling Discharge Call your doctor if you observe: Fever of 101 or Higher, Shortness of breath, Chest pain Additional Instructions: If you experience any of the following, contact your healthcare provider. * Bleeding that soaks a pad every hour for 2 hours * Fever 100.4 or higher * Unrelieved incision or abdominal pain * Swelling, redness, discharge or bleeding from your incision or episiotomy site * Your incision begins to separate * Problems urinating (including inability to urinate or burning while urinating). * Visual changes * Severe headache * Flu-like symptoms * Pain or redness in one of both of your breasts * Pain, warmth, tenderness or swelling in your legs, especially the calf area * Frequent nausea and vomiting * Symptoms of depression or anxiety If you experience any of the following, call 911 or go to the nearest Emergency Room. * Chest pain * Problems breathing * Seizure activity * Partial or complete paralysis of a body part, slurred speech, weakness or drooping of the face, or a sudden inability to walk or hold your balance Allergies/Adverse Reactions: Allergies No Known Allergies Allergy (Verified 05/18/20 07:20) Medications to take at Discharge Vits [Prenatabs FA] 1 tablet PO DAILY 04/01/16 Please Follow Up With: Solis Choe MD When: 1 week for blood pressure check, 4 to 6 weeks for visit Primary Care Physician: Willow Ortiz MD [Primary Care Provider] - Test Results: Test results from this visit will be discussed in further detail at your follow- up appointment, if applicable. <Mirella Choe - Last Filed: 05/19/20 16:09> Additional Instructions: If you experience any of the following, contact your healthcare provider. * Bleeding that soaks a pad every hour for 2 hours * Fever 100.4 or higher * Unrelieved incision or abdominal pain * Swelling, redness, discharge or bleeding from your incision or episiotomy site * Your incision begins to separate * Problems urinating (including inability to urinate or burning while urinating). * Visual changes * Severe headache * Flu-like symptoms * Pain or redness in one of both of your breasts * Pain, warmth, tenderness or swelling in your legs, especially the calf area * Frequent nausea and vomiting * Symptoms of depression or anxiety If you experience any of the following, call 911 or go to the nearest Emergency Room. * Chest pain * Problems breathing * Seizure activity * Partial or complete paralysis of a body part, slurred speech, weakness or drooping of the face, or a sudden inability to walk or hold your balance Test Results: Test results from this visit will be discussed in further detail at your follow- up appointment, if applicable.
[2020-05-18] MEDS: Acetaminophen 500 MG Tablet 1000 MG PO (19:33)
[2020-05-18] MEDS: 0.9% Saline Lock 10 ML Syringe IV (21:37)
[2020-05-18] MEDS: Ibuprofen 600 MG Tablet PO (21:48)
[2020-05-19 00:07] VITALS: BP 110/56; PULSE 76; RESP 18; TEMP 36.6
[2020-05-19 04:11] VITALS: BP 124/70; PULSE 78; RESP 16; TEMP 37.1
[2020-05-19] MEDS: Ibuprofen 600 MG Tablet PO (05:54)
[2020-05-19 07:48] VITALS: BP 121/86; PULSE 82; RESP 16; TEMP 36.6; O2SAT 99
--- NOTE | 2020-05-19 08:45 | PCM.PN.OB ---
Subjective: No issues overnight. Denies headache, vision changes, shortness of breath or abdominal pain. She is nursing, going well. Denies heavy lochia. No complaints. Request discharge home this evening. She notes that she has had high blood pressures in only and denies elevated BPs outside of . Objective: AVSS - Physical Exam Vitals/I&O's: Vital Signs Temp Pulse Resp BP Pulse Ox 98.3 F 71 18 137/81 H 96 05/19/20 19:47 05/19/20 19:47 05/19/20 19:47 05/19/20 19:47 05/19/20 16:42 Oxygen Delivery Method Room Air Weight: 84.822 kg Body Mass Index (BMI) 30.2 Intake and Output for Last 24 Hours 05/17/20 05/18/20 05/19/20 23:59 23:59 23:59 Intake Total 3209.60 / 3209.60 Output Total 1200 / 1200 200 / 200 Balance 2009.60 / 2008.60 -200 / -200 General: Alert, Oriented x3, Cooperative, No apparent distress HEENT: Atraumatic, Normocephalic Lungs: Clear to auscultation, Normal air movement Cardiovascular: Regular rate, Regular Rhythm, Normal S1, Normal S2 Abdomen: Soft, Non Tender, Non-Distended Extremities: No edema, No Calf Tenderness Neurological: Neuro grossly intact Psych/Mental Status: Normal Affect, Appropriate, Alert and oriented to time, place, person, mood and affect Comment: Fundus firm and nontender, lochia scant Medical Necessity - Tobacco Use Smoking Status: Current every day smoker Assessment/Plan 25yo PPD#1 s/p with hx cHTN -Rh positive -No si/sx preeclampsia - -plan for d/c home this evening if BPs remain appropriate
[2020-05-19] MEDS: Senna/Docusate Sodium 1 Tablet PO (10:17)
[2020-05-19 12:13] VITALS: BP 122/71; PULSE 70; RESP 16; TEMP 36.6
--- NOTE | 2020-05-19 15:30 | CASEMGMT ---
Social Work Assessment Labor and Delivery Unit Patient [place] [address] Phone number: [phone] Date of Referral: 05/18/2020 Time of Referral: 2157 Referred By: Dr. Solis Choe Date of Intervention: 05/19/2020 Time of Intervention: 1530 Reason for Referral: THC use History obtained from: Medical records and mother of baby (MOB) Charu Padron; father of baby (FOB) Chidi Lezama also present for part of conversation. Household composition: MOB and FOB, along with MOB 2 older children, have been living in the home of MOB friend Nivia Cherry for the last 6 months. MOB reports the family is living in the basement. Reports home situation is adequate at this time, but saving money to move out on her own. Patient's parent/guardian status: MOB is a 25-year-old single female, involved with FOB 24 years old for the last year. MOB denies any form of abuse, control, or intimidation in this relationship. [place] baby is the first child for this parents together, and the first for the FOB. MOB reports to have custody of her children, but they do visit with their biological fathers. MOB minor children include: Arnulfo Wills, born 01.30.2013 Ulysses Britt, born 11.14.2016 (MOB and FOB report this child has been with the biological father since April, with the plan to keep until June in order to help mom during the last part of and to give the parents time to adjust at home with the ). [place] baby girl, Janis Lezama, born 05.18.2021 Medical History: [place] is 3, para 2 now 3 after delivering baby girl. care started at 8 weeks and regular with the exception of a gap in care between 8 and 12 weeks and 23 and 38 weeks. Medical record indicates there was concern for IUGR during the end of . Baby delivered at 38 weeks gestation, weighing 6 pounds 3 ounces. Apgars 8 and 9 at 1 and 5 minutes of life respectively. Educational Status: MOB denies any concerns with reading, writing, or learning comprehension. 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 Infant Supplies: MOB reports to have all needed supplies for the baby including a crib, pack and play, car seat, clothing, diapers, wipes. MOB reports to have a breast pump. Is planning on breast-feeding. Childcare/Caregiver(s): MOB will be the primary caregiver, with the assistance from the FOB. Transportation: MOB reports to have adequate transportation. Programs/Agencies Involved: MOB is active with job and family services for food and medical. Reports to have WIC. Agrees to a Help Me Grow referral. Children Services/Legal Issues: No reported legal issues. MOB has a history of [facility] children services due to marijuana exposure to [place] at time of delivery. History with [facility] children services due to marijuana issues and allegations of no food in the home. No current children services case is reported or endorsed. Behavioral Health Issues: Mental Health History: MOB with history of anxiety at 23 week PNC visit. MOB reports at beginning of was feeling more stress, and was depressed. Admits to having thoughts of dying, but no thoughts/plans/intent/action. MOB reports her children are a reason to live. [place] depression screen completed this date with a score of 10, showing possible depression present. At PNC visit on 10.20.2019 score was a 15. MOB does have history of depression as a teen and hospitalization at [facility]. Substance Use History: MOB reports to have had some wine here and there during the , reporting 2 glassed on MOB's birthday and a glass during the Superbowl. MOB reports marijuana usage in , with chart indicating last use 2 weeks Superbowl, and usage for nausea. MOB reports cut down on marijuana usage during the to about 2 blunts a day when using. 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 Denies other illicit drug use such as heroin, cocaine, meth, ecstasy, or narcotic pills. Patient does smoke tobacco. Family History: Not discussed. FOB does share history of drinking, but that when MOB became stopped this. FOB reports he does not really care for marijuana. Drug Screens: Maternal drug screen positive for marijuana on 10.20.2019 and then at delivery on 05.18.2020. Infant's urine drug screen sample pending at time of delivery. Meconium is pending. Family/Social Stressors: Unplanned but accepted . Becoming so soon after becoming involved with the FOB. Moving to [facility] about 6 months ago. Living in the basement of a friend's home, though MOB does reports this is temporary. Support Systems: MOB's parents, MOB's roommate, and the FOB. Depression/Shaken Baby/Safe Sleeping: Educated dot shaken baby prevention, safe sleeping, and depression and anxiety. ASSESSMENT: Met with MOB and FOB in room, introducing to self and role. This appeals writer familiar with MOB from prior delivery. MOB voiced remembering this appeals writer. MOB pleasant, smiling, bright affect, talkative. MOB expansive in answers and at times required redirection back to topic at hand. MOB accepted redirection without issue. FOB also actively participating in conversation, pleasant demeanor. Parent report to have needed baby supplies to care for baby at home, and report to feel home situation is adequate. During private conversation addressed domestic violence, mental health and substance use with MOB. MOB Report substance use okay to talk about in front of the FOB. FOB returned to room before psychologist social finished, so was back in room for further discussion about substance use in . Regarding the depression scale, MOB not interested in referral to counseling at this time, nor medications. Reports to like to exercise and to talk to support system. MOB reports if depressive symptoms worsen would be willing to talk to OBGYN about recommendations. Educated parents to need to call children services related to infant exposure in utero. MOB expressed understanding and no concerns voiced. FOB reports he was raised in the system, foster care, and eventually adopted at the age of 6, though no voiced concerns or questions regarding need to call children services. MOB does agree to a [facility] referral for added support. MOB and FOB attentive to during social work stay. No voiced concerns by staff regarding parent/child interactions or bonding. Safe Plan of Care for infant related to substance use: Abstain from future marijuana use, especially while breast feeding. Make sure to not use around the children and to keep all substances locked up and out of reach of the children. PLAN: Provided MOB with [facility] resource list for home going, which includes area mental health providers and crisis lines. Provided packet on mood and anxiety disorders given and reviewed. MOB and baby to discharge home. Will be calling [facility] Children services, and MOB is aware. -ZACH Murillo, DISTRICT OPERATIONS MANAGER *Information documented in this assessment generated with [employer] System*
--- NOTE | 2020-05-19 16:00 | CASEMGMT ---
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 Reported positive maternal drug screens including at delivering and pending drugs screens for the baby. Brief maternal and infant histories reported including family's past history with other [facility] children services. Let [facility] know that discharge likely this weekend. Plan: MOB and baby to discharge when ready. Will monitor for baby's drug screens and report to [facility] as indicated. MOB has been given resource information for [facility]. Will make a [facility] referral. -OTTONIEL Murillo, MECHANICAL ENGINEERING TECHNOLOGIST
[2020-05-19 16:42] VITALS: BP 138/84; PULSE 94; RESP 16; O2SAT 96
[2020-05-19 19:47] VITALS: BP 137/81; PULSE 71; RESP 18; TEMP 36.8
--- NOTE | 2020-05-22 15:58 | CASEMGMT ---
Social Work Labor and Delivery. Help Me Grow referral completed this date via the [facility]'s secure web based referral system. Noted that baby's urine drug screen is back and positive for marijuana. Will call and update [facility] children services. -ZACH Murillo, KEYBOARD OPERATOR
== END 2020-05-19 20:15 | disposition home or self-care (01) | DRG 560 ==
PROVIDERS: Admitting Provider Obstetrics & Gynecology; PCP Family Medicine; Visit Provider Obstetrics & Gynecology
DX: O10.92 Unspecified pre-existing hypertension complicating childbirth (principal); O36.5930 Maternal care for other known or suspected poor fetal growth, third trimester, not applicable or unspecified; Z3A.38 38 weeks gestation of pregnancy; Z37.0 Single live birth; O99.334 Smoking (tobacco) complicating childbirth; O99.824 Streptococcus B carrier state complicating childbirth; F17.290 Nicotine dependence, other tobacco product, uncomplicated
CPT/HCPCS: 59025; 59050; 80307; 82565; 82570; 84156; 84450; 84460; 84550; 85025; 86850; 86900; 86901; 99218; J7120; A4216; G0378; J2405

== ENCOUNTER 2020-06-04 13:37 | Emergency (ER) | payer MEDICAID, SELFPAY ==
[2020-05-18 07:12] VITALS: BMI 30.2
[2020-06-04 13:38] VITALS: BP 118/74; PULSE 101; RESP 16; TEMP 36.4; O2SAT 98; BMI 28.0
--- NOTE | 2020-06-04 14:10 | CT_ITS ---
STUDY: CT ABDOMEN AND PELVIS WITH CONTRAST REASON FOR EXAM: Female, 25 years old. Abdominal pain -- IV PO Contrast RADIATION DOSAGE (If Supplied By Facility): CTDIvol = ( 14.78 ) mGy, DLP = ( 1418.08 ) mGycm TECHNIQUE: Transaxial images were obtained from the dome of the diaphragm to the symphysis pubis without oral contrast. Oral and amp; IV Gastrografin and amp; 100mL Isovue-370 was administered. Sagittal and coronal images were reconstructed. Individualized dose optimization techniques were used for this CT. COMPARISON: None. FINDINGS: The visualized lung bases are unremarkable. The visualized portions of the heart are within normal limits. Normal liver. Normal gallbladder and extrahepatic biliary system. Normal spleen. Normal pancreas. Normal bilateral adrenal glands. Normal right kidney. Normal left kidney. Normal visualized stomach. Normal small intestine. Normal colon. The appendix is visualized and appears normal. Normal abdominal aorta. Normal inferior vena cava. Normal retroperitoneum. Normal urinary bladder. Uterus is moderately enlarged and heterogeneous. There is contrast within the lumen of the uterine canal (image 89 series 2) measuring 2.6 x 2.6 cm. No pneumoperitoneum or pelvic free fluid. Normal abdominal wall. Normal osseous structures. CT/Abdomen/Pelvis WITH Contrast IMPRESSION: 1. Active contrast extravasation within the endometrial canal compatible with hemorrhage. Electronically Signed: Yrn Mckeon MD ([place]) at 16:31 EST , Service support ,
[2020-06-04 14:37] LABS: Absolute Lymphocyte Count 2.43 X10^3/uL (0.83-4.51); Absolute Neutrophil Count 5.8 X10^3/uL (2.0-7.7); Basophil# 0.05 X10^3/uL; Basophil% 0.5 % (0-1); Eosinophil# 0.22 X10^3/uL; Eosinophils% 2.3 % (0-5); Hematocrit 40.9 % (37-47); Hemoglobin 13.7 g/dL (12.0-15.0); Lymphocyte # 2.43 X10^3/ul (4.0); Lymphocyte % 25.8 % (19-41); Mean Corp Hgb Conc 33.5 g/dL (32-36); Mean Corpuscular Hgb 32.3 pg (27.0-32.0); Mean Corpuscular Volume 96.5 fL (81-99); Mean Platelet Vol. 10.9 fl (6.2-12.0); Monocyte# 0.84 X10^3/uL; Monocyte% 8.9 % (0-10); NRBC Flagged by Analyzer 0 % (0-5); Neutrophil # 5.84 X10^3/uL (2.7-7.7); Neutrophil % 62.1 % (47-70); Platelet Count 278 K/mm3 (150-450); RBC Distribution Width SD 42.6 fl (35.1-43.9); Red Blood Count 4.24 M/mm3 (4.2-5.4); White Blood Count 9.4 K/mm3 (4.4-11.0)
[2020-06-04] MEDS: Ondansetron 4 MG/2 ML Vial IV (14:50)
[2020-06-04] MEDS: Morphine 4 MG/ML Syringe IV (14:50)
[2020-06-04] MEDS: 0.9% Normal Saline 1,000 ML 1000 ML IV (14:50)
--- NOTE | 2020-06-04 14:53 | ED.DCSUM_ITS ---
- ER Visit Summary Date of Service: 06/04/20 Chief Complaint: Vaginal bleeding History of Present Illness: The patient is a 25 F who presents with vaginal bleeding that began yesterday. Patient states she also has some lower abdominal cramping. Patient states she passed a large clot yesterday and after that she started having heavier bleeding. Patient states she is going through 1 pad every 2 hours. Patient denies passing any tissue. Patient is 20 days . Patient denies any dysuria. Patient denies any fevers or chills. Patient denies any chest pain or shortness of breath. Physical Examination: Vital signs are stable. Patient is afebrile. Patient is in no acute distress. Oral mucosa is pink and moist. Neck is supple. Trachea is midline. There is no JVD noted. Heart was regular rate and rhythm. Lungs are clear and equal bilaterally. Abdomen is soft. Bowel sounds are normal. There is mild lower abdominal tenderness. There is no rebound or guarding noted. Skin is warm dry. Cranial nerves II through XII are intact. There are no focal motor or sensory deficits noted. Extremities are intact. There is no calf tenderness or edema. Test Results: CBC and comprehensive metabolic profile were obtained and were essentially within normal limits. Lipase was normal. Urinalysis shows leukocyte esterase of 500 and occult blood of 150. The remainder was within normal limits. CT scan of the abdomen and pelvis was obtained. There is active contrast extravasation within the endometrial canal compatible with hemorrhage. This was interpreted by the radiologist and reviewed by myself. Emergency Department Course and Treatment: Patient was given IV fluids, morphine, and Zofran. Patient is feeling better on reevaluation. Patient states her bleeding seems to be slowing down. Patient denies any orthostatic symptoms. Case was discussed with Dr. Perez. He recommended giving the patient Methergine 0.2 mg every 6 hours. Patient was given her first dose here. Patient was given a prescription. Patient understood and was agreeable with the plan. Patient was instructed to follow-up with her [employer] in 2 to 3 days. All questions were answered. Disposition: Discharge home Impression: bleeding This note was generated with [employer] dictation software. It may contain incorrect words, spelling, and punctuation that were not noted in review of the chart prior to signing ED Disposition - Plan for ED Patient: Disposition: Home or Assisted Living Instructions: ED Dysfunctional Uterine Bleeding Prescriptions: Methylergonovine [Methergine] 0.2 mg PO Q6H #10 tab Transmission Status: Pending to [facility] Referrals: Willow Ortiz MD [Primary Care Provider] - Solis Choe MD [STAFF PHYSICIAN] - 3-5 Days
[2020-06-04 15:27] LABS: ALB/GLOB Ratio 0.8 RATIO (0.9-2.4); AST(SGOT) 17 U/L (15-37); Alanine Aminotransfer ALT/SGPT 19 U/L (13-56); Albumin, Serum 2.9 g/dL (3.2-5.0); Alkaline Phosphatase 128 U/L (45-117); Anion Gap 6 (5-15); BUN 8 mg/dL (7-18); BUN/Creat Ratio 10.5 RATIO (10-20); Calcium,Total 8.4 mg/dL (8.5-10.1); Chloride 105 mmol/L (98-107); Creatinine, Serum 0.76 mg/dL (0.55-1.02); EST Glomerular Filtration Rate 98 mL/min (>60); Est Glom Filt Rate - Afr Amer 118 mL/min (>60); Estimated Creatinine Clearance 105.01 ml/min; Globulin 3.6 g/dL (2.2-4.2); Glucose 96 mg/dL (74-106); Lipase 66 U/L (73-393); Potassium 3.9 mmol/L (3.5-5.1); Protein, Total 6.5 g/dL (6.4-8.2); Sodium Level 140 mmol/L (136-145)
[2020-06-04 15:31] VITALS: BP 112/76; PULSE 61; RESP 16
[2020-06-04 15:41] LABS: Bacteria 0 SEEN /hpf (None Seen); Mucous, Urine 0 SEEN /hpf (<or=2+)
[2020-06-04 15:45] LABS: Color, Urine Yellow (Yellow); Glucose, Dipstick Normal (Normal); Ketone-Dipstick Negative (Negative); Leukocyte Esterase-Dipstick 500 /ul (Negative); Nitrite-Dipstick Negative (Negative); Occult Blood-Urine 150 /ul (Negative); Protein-Dipstick Negative (Negative); Urine Bilirubin Dipstick Negative (Negative); Urine Clarity Clear (Clear); Urine Urobilinogen Normal (Normal)
[2020-06-04 16:38] LABS: Red Blood Cells-Urine 0-5 SEEN /hpf (0-5); Squamous Epithelial Cells - UA 0-5 SEEN /hpf (5-10); White Blood Cells 0-5 SEEN /hpf (0-5)
== END 2020-06-04 17:49 | disposition home or self-care (01) ==
PROVIDERS: Emergency Provider Emergency Medicine; PCP Family Medicine
DX: O72.1 Other immediate postpartum hemorrhage (principal); F17.200 Nicotine dependence, unspecified, uncomplicated
CPT/HCPCS: 74177; 80053; 81001; 83690; 85025; 96374; 96375; 99283; J7030; Q9967; A4216; J2405

== ENCOUNTER → 2020-06-30 16:36 | Outpatient (CLI) | payer MEDICAID, SELFPAY ==
[2020-06-04 13:38] VITALS: BMI 28.0
[2020-07-03 20:07] LABS: Chlamydia By Nucleic Acid AMP Negative (Negative)
[2020-07-03 20:57] LABS: Gonococcus By Nucleic Acid AMP Negative (Negative)
== END ==
PROVIDERS: PCP Family Medicine; Visit Provider Obstetrics & Gynecology
DX: Z30.430 Encounter for insertion of intrauterine contraceptive device (principal)
CPT/HCPCS: 87491; 87591

== ENCOUNTER 2021-10-24 18:08 | Emergency (ER) | payer MEDICAID, SELFPAY ==
[2021-10-24 18:09] VITALS: BP 154/139; PULSE 115; RESP 16; TEMP 36.9; O2SAT 99; BMI 28.2
--- NOTE | 2021-10-24 18:23 | EX.ED.DYSGE1 ---
HPI History of Present Illness Chief Complaint: Abd Pain Informant: patient Onset/Context/Timing Onset: Today Narrative Narrative: Has recurrent episodes of severe sharp right-sided abdominal pain. This particular episode started this morning. She states that when it is severe she will be doubled over. She has had this frequently throughout her life. It is not necessarily correlate with a specific time in her menstrual cycle. No fever or chills. She is urinating normally and has normal bowel movements. PFSH PFSH Medical History no medical history no medical history Home Medications methylergonovine 0.2 mg tablet 0.2 mg PO Q6H #10 tabs 06/04/20 [Rx Last Taken Unknown] ketorolac 10 mg tablet 10 mg PO Q6H PRN pain 3 days #10 tabs 10/24/21 [Rx Last Taken Unknown] sulfamethoxazole 800 mg-trimethoprim 160 mg tablet (Bactrim DS) 1 tab PO BID #6 tabs 10/24/21 [Rx Last Taken Unknown] Allergy/AdvReac Type Severity Reaction Status Date / Time No Known Allergies Allergy Verified 10/24/21 18:11 Social History Smoking Status: Current every day smoker tobacco type: cigarettes ROS ROS ED Constitutional Constitutional ED: Denies chills or fever(s) Eyes Eyes: Denies change in vision or discharge from eye(s) ENT ENT ED: Denies discharge from eye(s), rhinorrhea or sore throat Cardiovascular Cardiovascular: Denies chest pain or palpitations Respiratory/Chest Respiratory/Chest: Denies cough or dyspnea Gastrointestinal Gastrointestinal: Reports abdominal pain; Denies diarrhea, nausea or vomiting Genitourinary Genitourinary ED: Denies difficulty urinating or dysuria Musculoskeletal Musculoskeletal: Denies back pain or extremity pain Integumentary Denies Abrasions or rash Neurologic Neurologic: Denies headache(s) or weakness Allergic/Immunologic Allergic/Immunologic ED: Denies lip swelling or urticaria EXAM Physical Exam Const Vital Signs: 10/24/21 18:09 Temperature 98.4 F Temperature Source Temporal Pulse Rate 115 H Respiratory Rate 16 Blood Pressure 154/139 H Blood Pressure Mean 144 Pulse Ox 99 Oxygen Delivery Method Room Air Positive well nourished and well developed General Appearance ED: well developed HEENT Reports normocephalic and head/scalp atraumatic Eyes PERRL and EOMs intact bilaterally Neck supple Chest Wall inspection of chest normal and palpation of chest normal Resp normal respiratory effort and clear to auscultation bilaterally Cardio regular rate and regular rhythm GI Auscultation: hypoactive bowel sounds Palpation: soft and tender other (Right mid abdomen); Negative for guarding or rebound tenderness present Extremity normal to inspection Neuro oriented x3 and no sensory deficits noted Sensorium / Orientation: alert Motor Exam: strength 5/5 throughout Psych mental status grossly normal Skin no rashes or lesions noted MDM MDM MDM Narrative Medical decision making narrative: Patient is given Toradol and Zofran along with IV fluids. Lab work and urinalysis obtained. Lab Data Attestation: I reviewed the patient's lab results. Labs: Laboratory Results - last 24 hr 10/24/21 10/24/21 10/24/21 18:30 18:31 18:31 WBC 11.6 H RBC 4.72 Hgb 14.7 Hct 43.1 MCV 91.3 MCH 31.1 MCHC 34.1 RDW Std Deviation 42.7 RDW Coeff of Felice 12.8 Plt Count 294 MPV 11.3 Immature Gran % (Auto) 0.300 Neut % (Auto) 65.6 Lymph % (Auto) 24.6 [place] % (Auto) 8.3 Eos % (Auto) 0.9 Baso % (Auto) 0.3 Absolute Neuts (auto) 7.6 Absolute Lymphs (auto) 2.84 Nucleated RBC % 0 Sodium 141 Potassium 3.6 Chloride 107 Carbon Dioxide 30.0 Anion Gap 4 L BUN 18 Creatinine 1.00 Estim Creat Clear Calc 79.11 Est GFR (MDRD) Af Amer 85 Est GFR (MDRD) Non-Af 71 BUN/Creatinine Ratio 18.0 Glucose 99 Calcium 8.8 Total Bilirubin 0.40 Direct Bilirubin 0.14 AST 10 L ALT 15 Alkaline Phosphatase 95 Total Protein 7.6 Albumin 4.3 Globulin 3.3 Serum , Qual Urine Color Yellow Urine Clarity Sl. Cloudy Urine pH 6.0 Ur Specific [place] 1.020 Urine Protein 30 H Urine Glucose (UA) Normal Urine Ketones 5 H Urine Occult Blood 250 H Urine Nitrite Negative Urine Bilirubin Negative Urine Urobilinogen 1 H Ur Leukocyte Esterase 500 H Urine RBC 5-10 SEEN Urine WBC 25-50 SEEN Ur Squamous Epith Cells 10-25 SEEN Urine Bacteria 3+ Urine Mucus 3+ 10/24/21 18:34 WBC RBC Hgb Hct MCV MCH MCHC RDW Std Deviation RDW Coeff of Felice Plt Count MPV Immature Gran % (Auto) Neut % (Auto) Lymph % (Auto) [place] % (Auto) Eos % (Auto) Baso % (Auto) Absolute Neuts (auto) Absolute Lymphs (auto) Nucleated RBC % Sodium Potassium Chloride Carbon Dioxide Anion Gap BUN Creatinine Estim Creat Clear Calc Est GFR (MDRD) Af Amer Est GFR (MDRD) Non-Af BUN/Creatinine Ratio Glucose Calcium Total Bilirubin Direct Bilirubin AST ALT Alkaline Phosphatase Total Protein Albumin Globulin Serum , Qual NEGATIVE Urine Color Urine Clarity Urine pH Ur Specific [place] Urine Protein Urine Glucose (UA) Urine Ketones Urine Occult Blood Urine Nitrite Urine Bilirubin Urine Urobilinogen Ur Leukocyte Esterase Urine RBC Urine WBC Ur Squamous Epith Cells Urine Bacteria Urine Mucus Radiography Diagnostic Testing: Clinical Impression(s) from Imaging Studies Abdomen/Pelvis CT 10/24/21 19:34 IMPRESSION: No acute intra-abdominal pathology with normal appendix identified. Nonobstructing genitourinary stones bilateral kidneys, 3 mm in maximum diameter. New T-shaped intrauterine contraceptive device slightly more posterior in position than midline. If the patient is experiencing pelvic pain, ultrasound could be used to confirm endometrial cavity position of the contraceptive device. Electronically Signed: Balwinder Barnes DO at 20:10 EDT , Treatment and Re-Evaluation Narrative: White count slightly elevated 11.6. Normal differential. Workable. LFTs normal. Urinalysis does show 3+ bacteria with 25-50 white cells, however 10-25 epithelials are also noted. CT scan of the flank is obtained that shows a normal appendix. She does have bilateral kidney stones. No evidence of ovarian cyst. Patient is resting comfortably on repeat exam. She does report some improvement with her pain secondary to Toradol. I discussed with her that her urinalysis does show significant bacteria, however this may all be contaminant as it was not a clean sample. She will be covered with 3 days of Bactrim and will be given a prescription for Toradol to help with pain. Discharge Plan Triage Chief Complaint: Abd Pain ED Provider: Renetta Olivera Dx/Rx/DC Orders Clinical Impression: Abdominal pain Instructions: ED Abdominal Pain Unkn Cause Fem Prescriptions: New ketorolac 10 mg tablet 10 mg PO Q6H PRN (Reason: pain) 3 Days Qty: 10 0RF sulfamethoxazole-trimethoprim [Bactrim DS] 800-160 mg tablet 1 tab PO BID Qty: 6 0RF No Action methylergonovine 0.2 MG tablet 0.2 mg PO Q6H Qty: 10 0RF Primary Care Provider: Willow Ortiz Referrals: Willow Ortiz MD [Primary Care Provider] - Solis Choe MD [STAFF PHYSICIAN] - 1-2 Weeks Disposition Disposition: Home, Self Care
[2021-10-24] MEDS: 0.9% Normal Saline 1,000 ML 1000 ML IV (18:34)
[2021-10-24] MEDS: Ketorolac 30 MG/ML Syringe IV (18:34)
[2021-10-24] MEDS: Ondansetron 4 MG/2 ML Vial IV (18:34)
[2021-10-24 18:44] LABS: Absolute Lymphocyte Count 2.84 X10^3/uL (0.83-4.51); Absolute Neutrophil Count 7.6 X10^3/uL (2.0-7.7); Basophil# 0.04 X10^3/uL; Basophil% 0.3 % (0-1); Eosinophils% 0.9 % (0-5); Hematocrit 43.1 % (37-47); Hemoglobin 14.7 g/dL (12.0-15.0); Lymphocyte # 2.84 X10^3/ul (0.83-4.51); Lymphocyte % 24.6 % (19-41); Mean Corp Hgb Conc 34.1 g/dL (32-36); Mean Corpuscular Hgb 31.1 pg (27.0-32.0); Mean Corpuscular Volume 91.3 fL (81-99); Mean Platelet Vol. 11.3 fl (6.2-12.0); Monocyte# 0.96 X10^3/uL; Monocyte% 8.3 % (0-10); NRBC Flagged by Analyzer 0 % (0-5); Neutrophil # 7.58 X10^3/uL (2.7-7.7); Neutrophil % 65.6 % (47-70); Platelet Count 294 K/mm3 (150-450); RBC Distribution Width CV 12.8 % (11.6-14.6); RBC Distribution Width SD 42.7 fl (35.1-43.9); Red Blood Count 4.72 M/mm3 (4.2-5.4); White Blood Count 11.6 K/mm3 (4.4-11.0)
[2021-10-24 18:49] LABS: Color, Urine Yellow (Yellow); Glucose, Dipstick Normal (Normal); Ketone-Dipstick 5 mg/dl (Negative); Leukocyte Esterase-Dipstick 500 /ul (Negative); Nitrite-Dipstick Negative (Negative); Occult Blood-Urine 250 /ul (Negative); Protein-Dipstick 30 mg/dl (Negative); Urine Bilirubin Dipstick Negative (Negative); Urine Clarity Sl. Cloudy (Clear); Urine Urobilinogen 1 mg/dl (Normal)
[2021-10-24 18:57] LABS: Internal QC Validated? YES +Cl - CLEAR BKGD; Pregnancy, Serum, hCG Quali. NEGATIVE Negative
[2021-10-24 19:03] LABS: AST(SGOT) 10 U/L (15-37); Alanine Aminotransfer ALT/SGPT 15 U/L (13-56); Albumin, Serum 4.3 g/dL (3.2-5.0); Alkaline Phosphatase 95 U/L (45-117); Anion Gap 4 (5-15); BUN 18 mg/dL (7-18); Bilirubin, Direct 0.14 mg/dL (0.00-0.30); Calcium,Total 8.8 mg/dL (8.5-10.1); Chloride 107 mmol/L (98-107); EST Glomerular Filtration Rate 71 mL/min (>60); Est Glom Filt Rate - Afr Amer 85 mL/min (>60); Estimated Creatinine Clearance 79.11 ml/min; Globulin 3.3 g/dL (2.2-4.2); Glucose 99 mg/dL (74-106); Potassium 3.6 mmol/L (3.5-5.1); Protein, Total 7.6 g/dL (6.4-8.2); Sodium Level 141 mmol/L (136-145)
[2021-10-24 19:07] LABS: Red Blood Cells-Urine 5-10 SEEN /hpf (0-5); White Blood Cells 25-50 SEEN /hpf (0-5)
[2021-10-24 19:08] LABS: Bacteria 3+ /hpf (None Seen); Mucous, Urine 3+ /hpf (<or=2+)
[2021-10-24 19:09] LABS: Squamous Epithelial Cells - UA 10-25 SEEN /hpf (5-10)
--- NOTE | 2021-10-24 19:34 | CT_ITS ---
INDICATION: RLQ pain EXAMINATION: CT ABDOMEN AND PELVIS WITHOUT CONTRAST - CT Abdomen And Pelvis W/O Contrast Injection TECHNIQUE: Helically acquired images were obtained of the abdomen and pelvis without oral or IV contrast. A radiation dose optimization technique was used for this scan. IV Contrast dosage and agent: None. Oral contrast: None. COMPARISON: 06/04/2020 CT abdomen and pelvis. FINDINGS: LOWER CHEST: Lung bases are clear. Minimal expected dependent atelectasis lung bases. No cardiomegaly or pericardial effusion. LIVER: Homogeneous. No focal mass. GALLBLADDER AND BILIARY TREE: No calcified gallstones. No gallbladder distension or wall edema. No intra- or extrahepatic biliary ductal dilation. PANCREAS: No focal cystic or solid mass. SPLEEN: Normal size without focal cystic or solid mass. ADRENAL GLANDS: No nodules. KIDNEYS, URETERS and BLADDER: Normal renal size and position. No mass. Several 3 mm stones are seen in the bilateral kidneys; 2 in the right upper pole, one in the right lower pole, too in the left lower pole and one in the left upper pole. No other genitourinary stone. No hydronephrosis. Urinary bladder is unremarkable. PERITONEUM: No ascites or free air. No other fluid collection. BOWEL: Normal appendix identified. No abnormally distended bowel loops or air fluid levels. No wall thickening or mass. No focal inflammatory changes. LYMPH NODES: No enlarged mesenteric or retroperitoneal lymph nodes. VESSELS: Aorta is non-dilated. REPRODUCTIVE ORGANS: New, T-shaped contraceptive device in uterus, slightly more posterior position than midline uterus, most likely within the endometrial cavity in a patient without pelvic pain. ABDOMINAL WALL: No discrete abdominal or pelvic wall hernia. BONES: Mild periarticular sclerosis iliac bones, adjacent to the superior sacroiliac joints with otherwise normal appearance of the sacroiliac joints and adjacent sacrum. Findings may represent osteitis, SANDS ileitis. Unchanged limbus vertebrae morphology at L4 and L5. CT/Abdomen/Pelvis without Cont IMPRESSION: No acute intra-abdominal pathology with normal appendix identified. Nonobstructing genitourinary stones bilateral kidneys, 3 mm in maximum diameter. New T-shaped intrauterine contraceptive device slightly more posterior in position than midline. If the patient is experiencing pelvic pain, ultrasound could be used to confirm endometrial cavity position of the contraceptive device. Electronically Signed: Balwinder Barnes, at 20:10 EDT ,
[2021-10-24 20:36] VITALS: BP 134/69; PULSE 62; RESP 15; O2SAT 99
== END 2021-10-24 20:38 | disposition home or self-care (01) ==
PROVIDERS: Emergency Provider Emergency Medicine; PCP Family Medicine; Visit Provider Emergency Medicine
DX: R10.9 Unspecified abdominal pain (principal); F17.210 Nicotine dependence, cigarettes, uncomplicated
CPT/HCPCS: 74176; 80048; 80076; 81001; 84703; 85025; 96361; 96374; 96375; 99283; J7030; A4216; J2405

== ENCOUNTER 2022-03-19 08:20 | Emergency (ER) | payer MEDICAID, SELFPAY ==
[2022-03-19 08:20] VITALS: BP 122/80; PULSE 104; RESP 16; TEMP 36.6; O2SAT 97; BMI 28.2
--- NOTE | 2022-03-19 09:06 | EX.ED.DYSGE1 ---
HPI History of Present Illness Chief Complaint: General Illness Informant: patient Onset/Context/Timing Onset: Days (2 to 3 days) Context: Gradual Onset Current Severity: Moderate Maximum Severity: Moderate Narrative Narrative: Patient presents with a 2 to 3-day history of cough, body aches, sore throat, headache. She had subjective fever but did not measure her temperature at home.She states her children were ill with similar symptoms and they seem to be improving. PFSH PFS Medical History Kidney stones Home Medications methylergonovine 0.2 mg tablet 0.2 mg PO Q6H #10 tabs 06/04/20 [Rx Last Taken Unknown] ketorolac 10 mg tablet 10 mg PO Q6H PRN pain 3 days #10 tabs 10/24/21 [Rx Last Taken Unknown] sulfamethoxazole 800 mg-trimethoprim 160 mg tablet (Bactrim DS) 1 tab PO BID #6 tabs 10/24/21 [Rx Last Taken Unknown] Allergy/AdvReac Type Severity Reaction Status Date / Time No Known Allergies Allergy Verified 03/19/22 08:25 Family History Mother Heart disease Hypertension Social History Smoking Status: Current every day smoker tobacco type: e-cigarettes ROS ROS ED Constitutional Constitutional ED: Reports fever(s), subjective and sweats; Denies chills Eyes Eyes: Denies change in vision or discharge from eye(s) ENT ENT ED: Reports sore throat; Denies discharge from eye(s) or rhinorrhea Cardiovascular Cardiovascular: Denies chest pain or palpitations Respiratory/Chest Respiratory/Chest: Reports cough; Denies dyspnea Gastrointestinal Gastrointestinal: Reports other Details: Posttussive emesis ; Denies abdominal pain, diarrhea, nausea or vomiting Genitourinary Genitourinary ED: Denies difficulty urinating or dysuria Musculoskeletal Musculoskeletal: Reports myalgias Integumentary Denies Abrasions or rash Neurologic Neurologic: Reports headache(s); Denies weakness Psychiatric Psychiatric: Denies anxiety or depression Allergic/Immunologic Allergic/Immunologic ED: Denies lip swelling or urticaria EXAM Physical Exam Const Vital Signs: 03/19/22 08:20 03/19/22 08:45 Temperature 97.8 F Temperature Source Temporal Pulse Rate 104 H Respiratory Rate 16 Respiratory Effort Normal Non-Labored Respiratory Pattern Normal Blood Pressure 122/80 H Blood Pressure Mean 94 Pulse Ox 97 Oxygen Delivery Method Room Air Positive well nourished and well developed General Appearance ED: well developed HEENT Reports normocephalic and head/scalp atraumatic HEENT Narrative: TMs clear bilaterally. Normal posterior pharynx. Eyes PERRL and EOMs intact bilaterally Neck supple Chest Wall inspection of chest normal and palpation of chest normal Resp normal respiratory effort and clear to auscultation bilaterally Cardio regular rate and regular rhythm GI normal to inspection, nondistended, normoactive bowel sounds Palpation: soft Back/Spine no CVA tenderness Extremity normal to inspection Neuro oriented x3 and no sensory deficits noted Sensorium / Orientation: alert Motor Exam: strength 5/5 throughout Psych mental status grossly normal Skin no rashes or lesions noted MDM MDM MDM Narrative Medical decision making narrative: Swab for COVID and influenza sent. Portable chest x-ray. Patient given ibuprofen and Robitussin. Radiography Diagnostic Testing: Clinical Impression(s) from Imaging Studies Chest X-Ray 03/19/22 09:15 IMPRESSION: Normal x-ray examination of the chest. Electronically Signed: Al Oreilly MD at 10:20 EST , Treatment and Re-Evaluation Narrative: Patient's COVID test is negative. Influenza test is positive for flu A. Portable chest x-ray per my interpretation reveals no focal infiltrate. Radiology interpretation is reviewed and agrees. Test results are discussed with the patient. We discussed continued supportive care. Return instructions given. Discharge Plan Triage Chief Complaint: General Illness ED Provider: Renetta Olivera Dx/Rx/DC Orders Clinical Impression: Influenza A Instructions: ED Influenza (Adult) Prescriptions: No Action methylergonovine 0.2 MG tablet 0.2 mg PO Q6H Qty: 10 0RF ketorolac 10 mg tablet 10 mg PO Q6H PRN (Reason: pain) 3 Days Qty: 10 0RF sulfamethoxazole-trimethoprim [Bactrim DS] 800-160 mg tablet 1 tab PO BID Qty: 6 0RF Primary Care Provider: Willow Ortiz Referrals: Willow Ortiz MD [Primary Care Provider] - As Needed Disposition Disposition: Home, Self Care
--- NOTE | 2022-03-19 09:15 | RAD_ITS ---
STUDY: X-RAY CHEST REASON FOR EXAM: Female, 26 years old. Cough and fever. TECHNIQUE: Single AP portable view of the chest. COMPARISON: Comparison is made with prior study dated 02/20/2014. FINDINGS: The lungs are clear and expanded. There is no demonstrated pleural abnormality. Normal size heart. Normal mediastinum and chelita. Normal visualized pulmonary arteries. Normal visualized aortic arch and descending thoracic aorta. Normal visualized thoracic spine. Normal visualized ribs, clavicles, and shoulders. There is no demonstrated abnormality of the visualized soft tissue structures of the upper abdomen. RAD/Chest 1 View (Portable) IMPRESSION: Normal x-ray examination of the chest. Electronically Signed: Al Oreilly MD at 10:20 EST ,
[2022-03-19] MEDS: guaiFENesin Dm 10 ML UDC PO (09:41)
[2022-03-19] MEDS: Ibuprofen 600 MG Tablet PO (09:41)
[2022-03-19 10:36] VITALS: BP 134/77; PULSE 62; RESP 15; O2SAT 98
== END 2022-03-19 10:37 | disposition home or self-care (01) ==
PROVIDERS: Emergency Provider Emergency Medicine; PCP Family Medicine; Visit Provider Emergency Medicine
DX: J10.1 Influenza due to other identified influenza virus with other respiratory manifestations (principal); F17.290 Nicotine dependence, other tobacco product, uncomplicated; Z20.822 Contact with and (suspected) exposure to COVID-19
CPT/HCPCS: 71045; 87428; 99282

== ENCOUNTER 2023-01-16 20:26 | Emergency (ER) | payer MEDICAID, SELFPAY ==
[2023-01-16 20:27] VITALS: BP 159/85; PULSE 110; RESP 18; TEMP 36.4; O2SAT 100; BMI 28.6
--- NOTE | 2023-01-16 20:34 | EKG12_ITS ---
Test Reason : GEN ILL Blood Pressure : / mmHG Vent. Rate : 092 BPM Atrial Rate : 092 BPM P-R Int : 190 ms QRS Dur : 084 ms QT Int : 330 ms P-R-T Axes : 030 074 045 degrees QTc Int : 408 ms Normal sinus rhythm Normal ECG Confirmed by REGIS CONCEPCION, JORJE ([id number]), book editor ABHISHEK NORTH ([id number]) on 01/21/2023 7:57:53 AM Referred By: Confirmed By:JORJE STACY MD
--- NOTE | 2023-01-16 20:37 | EX.ED.GENINJ ---
HPI History of Present Illness Chief Complaint: Nausea/Vomiting/Diarrhea [facility] Medical History Kidney stones Home Medications methylergonovine 0.2 mg tablet 0.2 mg PO Q6H #10 tabs 06/04/20 [Rx Last Taken Unknown] ketorolac 10 mg tablet 10 mg PO Q6H PRN pain 3 days #10 tabs 10/24/21 [Rx Last Taken Unknown] sulfamethoxazole 800 mg-trimethoprim 160 mg tablet (Bactrim DS) 1 tab PO BID #6 tabs 10/24/21 [Rx Last Taken Unknown] ondansetron 4 mg disintegrating tablet 4 mg PO Q8H PRN nausea and vomiting 3 days #9 tabs 01/16/23 [Rx Last Taken Unknown] Allergy/AdvReac Type Severity Reaction Status Date / Time No Known Allergies Allergy Verified 01/16/23 20:29 Family History Mother Heart disease Hypertension Social History Smoking Status: Current every day smoker tobacco type: e-cigarettes EXAM Physical Exam Const Vital Signs: 01/16/23 20:27 Temperature 97.6 F L Temperature Source Temporal Pulse Rate 110 H Respiratory Rate 18 Blood Pressure 159/85 H Blood Pressure Mean 109 Pulse Ox 100 Oxygen Delivery Method Room Air MDM MDM MDM Narrative Medical decision making narrative: HISTORY OF PRESENT ILLNESS: 27-year-old female here with nausea vomiting and diffuse abdominal pain. States she was exposed to her daughter who had similar symptoms 2 days ago. She denies any hematochezia, no dark coffee-ground vomitus. No recent travel or antibiotics. No history abdominal surgeries. She notes loose stools. Denies any melena or hematochezia. Denies any urinary complaints vaginal bleeding or discharge. REVIEW OF SYSTEMS: Pertinent positives: Nausea vomiting diarrhea Pertinent negatives: Chest pain, shortness of breath, syncope PHYSICAL EXAM: Nursing triage notes reviewed, Vital signs reviewed Constitutional: please see mdm HENT: MMM Eyes: Pupils equal round and reactive to light, Extraocular muscles intact Neck: No stridor, no JVD, full neck ROM Lungs: Clear to auscultation, No wheezing or rales. No increased work of breathing, no conversational dyspnea, no accessory muscle use, no nasal flaring. No respiratory distress noted Heart: Regular rate and rhythm, No murmurs, No rubs and No gallops, 2+ distal pulses (radial, femoral, posterior tibial) in all extremities Abdomen: Soft, there is no tenderness, rigidity, rebound or guarding, no obvious peritoneal signs, no palpable pulsatile abdominal masses, no auscultated abdominal bruit : No CVAT Extremities: No edema Neuro: No focal neurological deficits, cranial nerves II through XII intact, 5/5 strength in all extremities. Intact sensation to light touch in all extremities, 2+ reflexes bilateral patella tendons. Normal gait. No ataxia. Skin: No rash or lesions noted MEDICAL DECISION MAKING: Chief Complaint: Nausea vomiting diarrhea External records reviewed: Imaging reviewed: CT scan of the abdomen pelvis from 2021 shows no acute intra-abdominal pathology Factors affecting care: none Social determinants of health: none History obtained from others: none Consults: none MDM Narrative: Patient was hemodynamically stable, tachycardic otherwise afebrile and nontoxic-appearing. Abdominal exam was benign. Does not consistent with acute surgical pathology. I considered obtaining a CT scan to rule out acute surge pathology abdomen however thought this was not indicated at this time given benign nature of the patient abdominal exam. I considered the following differential diagnosis: Dehydration, HARRIS, pancreatitis, ALL IMAGES (IF OBTAINED) HAVE BEEN PERSONALLY REVIEWED AND INTERPRETED BY MYSELF. CBC with leukocytosis suggestive of systemic summation, no anemia or thrombocytopenia BMP without evidence of significant electrolyte abnormalities, no anion gap, no acute kidney injury. LFTs show no evidence of hepatobiliary pathology. Lipase is wnl indicating no pancreatic inflammation. UA with evidence of inflammation. Likely asymptomatic given no urinary complaints Urine test is negative The synthesis of the patient's history, physical exam labs were not consistent with acute surgical intra-abdominal process. Suspect patient has some sort of viral potential infection. Gave Zofran for home-going. Gave strict return precautions The patient and/or family, caregivers express understanding. The patient and/or family, caregivers agrees with the plan. Shared decision making: I will have a discussion with the patient and or visitors regarding risk/benefits of further testing or admission. They will be made aware of of the risk/benefits inherent in this decision they will be given the opportunity to voice understanding. Total critical care time today provided was at least 0 minutes. This excludes separately billable procedures. Critical care time (if documented) is secondary to the patient having high probability of clinically significant/life threatening deterioration in the patient's condition which required my urgent intervention. Impression: 1. Nausea vomiting diarrhea 2. Leukocytosis Dispo: Discharge Lab Data Labs: Laboratory Results - last 24 hr 01/16/23 01/16/23 01/16/23 20:35 20:40 Unknown WBC 14.9 H RBC 4.72 Hgb 14.6 Hct 43.5 MCV 92.2 MCH 30.9 MCHC 33.6 RDW Std Deviation 40.8 RDW Coeff of Felice 12.0 Plt Count 263 MPV 10.9 Immature Gran % (Auto) 0.300 Neut % (Auto) 86.9 H Lymph % (Auto) 5.2 L [place] % (Auto) 6.6 Eos % (Auto) 0.7 Baso % (Auto) 0.3 Absolute Neuts (auto) 13.0 H Absolute Lymphs (auto) 0.77 L Nucleated RBC % 0 Sodium 137 Potassium 3.8 Chloride 106 Carbon Dioxide 26.0 Anion Gap 5 BUN 15 Creatinine 0.85 Estim Creat Clear Calc 92.24 Est GFR (MDRD) Af Amer 102 Est GFR (MDRD) Non-Af 84 BUN/Creatinine Ratio 17.7 Glucose 108 H Calcium 8.7 Total Bilirubin 1.00 Direct Bilirubin 0.27 AST 9 L ALT 22 Alkaline Phosphatase 81 Total Protein 7.6 Albumin 4.1 Globulin 3.5 Lipase 17 Urine Color Yellow Urine Clarity Sl. Cloudy Urine pH 6.0 Ur Specific Seanor 1.020 Urine Protein 30 H Urine Glucose (UA) Normal Urine Ketones 5 H Urine Occult Blood 150 H Urine Nitrite Negative Urine Bilirubin Negative Urine Urobilinogen 1 H Ur Leukocyte Esterase 500 H Urine RBC 0 SEEN Urine WBC 5-10 SEEN Ur Squamous Epith Cells 0-5 SEEN Urine Bacteria 1+ Urine Mucus 0 SEEN Urine Test Negative Discharge Plan Triage Chief Complaint: Nausea/Vomiting/Diarrhea ED Provider: Rogerio Esquivel Dx/Rx/DC Orders Instructions: ED Diet Vomiting Diarrhea Prescriptions: New ondansetron 4 mg tablet,disintegrating 4 mg PO Q8H PRN (Reason: nausea and vomiting) 3 Days Qty: 9 0RF No Action methylergonovine 0.2 MG tablet 0.2 mg PO Q6H Qty: 10 0RF ketorolac 10 mg tablet 10 mg PO Q6H PRN (Reason: pain) 3 Days Qty: 10 0RF sulfamethoxazole-trimethoprim [Bactrim DS] 800-160 mg tablet 1 tab PO BID Qty: 6 0RF Stand Alone Forms: ED Work / School Excuse Primary Care Provider: Willow Ortiz Referrals: Willow Ortiz MD [Primary Care Provider] - Activity Restrictions/Additional Instructions: Thank you for trusting us with your care today! Please take Tylenol (2 pills, 650 mg), ibuprofen (2 pills, 400 mg) every 6 hours as needed for pain and fever control. Please take Zofran as needed for nausea or vomiting. Please return to the emergency department if your symptoms change or worsen. Specifically cannot tolerate food or medicine by mouth. If you develop worsening abdominal pain Please follow with your primary care physician for further outpatient evaluation and management. Disposition Disposition: Home, Self Care
[2023-01-16 20:39] LABS: Mucous, Urine 0 SEEN /hpf (<or=2+); Red Blood Cells-Urine 0 SEEN /hpf (0-5)
[2023-01-16] MEDS: Ondansetron 4 MG/2 ML Vial IV (20:43)
[2023-01-16] MEDS: 0.9% Normal Saline (1000mL) 1,000 ML 999 ML IV (20:43)
[2023-01-16 20:44] LABS: Color, Urine Yellow (Yellow); Glucose, Dipstick Normal (Normal); Ketone-Dipstick 5 mg/dl (Negative); Leukocyte Esterase-Dipstick 500 /ul (Negative); Nitrite-Dipstick Negative (Negative); Occult Blood-Urine 150 /ul (Negative); Protein-Dipstick 30 mg/dl (Negative); Urine Bilirubin Dipstick Negative (Negative); Urine Clarity Sl. Cloudy (Clear); Urine Urobilinogen 1 mg/dl (Normal)
[2023-01-16 20:49] LABS: Absolute Lymphocyte Count 0.77 X10^3/uL (0.83-4.51); Basophil# 0.04 X10^3/uL; Basophil% 0.3 % (0-1); Eosinophils% 0.7 % (0-5); Hematocrit 43.5 % (37-47); Hemoglobin 14.6 g/dL (12.0-15.0); Lymphocyte # 0.77 X10^3/ul (0.83-4.51); Lymphocyte % 5.2 % (19-41); Mean Corp Hgb Conc 33.6 g/dL (32-36); Mean Corpuscular Hgb 30.9 pg (27.0-32.0); Mean Corpuscular Volume 92.2 fL (81-99); Mean Platelet Vol. 10.9 fl (6.2-12.0); Monocyte# 0.98 X10^3/uL; Monocyte% 6.6 % (0-10); NRBC Flagged by Analyzer 0 % (0-5); Neutrophil % 86.9 % (47-70); Platelet Count 263 K/mm3 (150-450); RBC Distribution Width SD 40.8 fl (35.1-43.9); Red Blood Count 4.72 M/mm3 (4.2-5.4); White Blood Count 14.9 K/mm3 (4.4-11.0)
[2023-01-16 20:51] LABS: Bacteria 1+ /hpf (None Seen); Squamous Epithelial Cells - UA 0-5 SEEN /hpf (5-10); White Blood Cells 5-10 SEEN /hpf (0-5)
[2023-01-16 21:06] LABS: AST(SGOT) 9 U/L (15-37); Alanine Aminotransfer ALT/SGPT 22 U/L (13-56); Albumin, Serum 4.1 g/dL (3.2-5.0); Alkaline Phosphatase 81 U/L (45-117); Anion Gap 5 (5-15); BUN 15 mg/dL (7-18); BUN/Creat Ratio 17.7 RATIO (10-20); Bilirubin, Direct 0.27 mg/dL (0.00-0.30); Calcium,Total 8.7 mg/dL (8.5-10.1); Chloride 106 mmol/L (98-107); Creatinine, Serum 0.85 mg/dL (0.55-1.02); EST Glomerular Filtration Rate 84 mL/min (>60); Est Glom Filt Rate - Afr Amer 102 mL/min (>60); Estimated Creatinine Clearance 92.24 ml/min; Globulin 3.5 g/dL (2.2-4.2); Glucose 108 mg/dL (74-106); Lipase 17 U/L (13-75); Potassium 3.8 mmol/L (3.5-5.1); Protein, Total 7.6 g/dL (6.4-8.2); Sodium Level 137 mmol/L (136-145)
[2023-01-16 21:16] LABS: Internal QC Validated? YES +Cl - CLEAR BKGD; Pregnancy, Urine Negative Negative
[2023-01-16] MEDS: Ketorolac 15 MG/ML Vial IV (21:26)
[2023-01-16] MEDS: Famotidine 200 MG/20 ML MDV 20 MG in 0.9% Normal Saline (Pres. free 8 ML 300 MG IV (21:26)
== END 2023-01-16 22:05 | disposition home or self-care (01) ==
PROVIDERS: Emergency Provider Emergency Medicine; PCP Family Medicine; Visit Provider Emergency Medicine
DX: R11.2 Nausea with vomiting, unspecified (principal); R19.7 Diarrhea, unspecified; D72.829 Elevated white blood cell count, unspecified; F17.290 Nicotine dependence, other tobacco product, uncomplicated
CPT/HCPCS: 80048; 80076; 81001; 81025; 83690; 85025; 93005; 96374; 96375; 99284; J7030; A4216; J2405; J3490

== ENCOUNTER 2023-06-22 17:26 | Emergency (ER) | payer MEDICAID, SELFPAY ==
[2023-06-22 17:26] VITALS: BP 118/67; PULSE 69; RESP 16; TEMP 36.3; O2SAT 100; BMI 28.2
--- NOTE | 2023-06-22 18:24 | RAD_ITS ---
STUDY: X-RAY - RIGHT WRIST REASON FOR EXAM: Female, 28 years old. pain TECHNIQUE: 4 view(s) of the wrist were obtained. COMPARISON: 03/01/2008 FINDINGS: Normal visualized distal radius and ulna. Normal radiocarpal articulation. Normal distal radioulnar articulation. Normal carpal bones. Normal carpal articulations. Normal carpometacarpal articulation of the thumb. Normal second through fifth carpometacarpal articulations. Normal visualized metacarpal bones. The soft tissue structures are unremarkable. RAD/Wrist min 3 Views IMPRESSION: Normal x-ray examination of the wrist. Electronically Signed: Jesse Harrington MD at 19:00 EDT ,
--- NOTE | 2023-06-22 18:27 | EDS_ITS ---
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 Yesterday she was doing rack drills and had her hands up running into another player when her thumb got caught in their jersey and bent backwards. She has pain and swelling over the base of the thumb. No weakness numbness or tingling. She is right-hand dominant. The second injury is about a month of right quad pain. She isn;t sure how it started but after continuing to practice and run and she felt like she pulled the muscle more a couple days ago. She had no fall or direct injury. [facility] <ZACHERY Her - Last Filed: 06/22/23 19:48> [facility] Medical History Kidney stones Home Medications NK 06/22/23 [History Last Taken Unknown] Allergy/AdvReac Type Severity Reaction Status Date / Time No Known Allergies Allergy Verified 06/22/23 17:26 Family History Mother Heart disease Hypertension Social History Smoking Status: Current every day smoker tobacco type: e-cigarettes ROS <ZACHERY Her - Last Filed: 06/22/23 19:48> ROS ED ROS Narrative Neuro: Negative for motor/sensory dysfunction. Musc: Positive for right thumb pain, trauma. EXAM <ZACHERY Her - Last Filed: 06/22/23 19:48> Physical Exam Narrative Exam Narrative: CONST: Patient sitting in no acute distress. EYES: Normal inspection. NECK: Normal inspection. SKIN: Color normal, no rash, warm, dry, intact. EXTREMITIES: Mild swelling and tenderness over the base of the right thumb. Slight tenderness over the scaphoid. No other tenderness of elbow wrist or hand. Full range of motion of the thumb, normal motor and sensory function of median radial and ulnar distributions, 2+ radial pulse and brisk cap refill. Normal appearance of both lower extremities, tender over right mid quadriceps muscle, no bony tenderness of hip knee or ankle. Full range of motion, 5/5 strength, 2+ DP pulses. NEURO: Oriented and answering questions appropriately. PSYCH: Normal affect. Const Vital Signs: 06/22/23 17:26 06/22/23 19:47 Temperature 97.4 F L 98.7 F Temperature Source Temporal Pulse Rate 69 55 L Respiratory Rate 16 16 Blood Pressure 118/67 120/74 Blood Pressure Mean 84 89 Pulse Ox 100 99 Oxygen Delivery Method Room Air <Dr. Chicho Jiang DO - Last Filed: 06/22/23 19:55> Physical Exam Const Vital Signs: 06/22/23 17:26 06/22/23 19:47 Temperature 97.4 F L 98.7 F Temperature Source Temporal Pulse Rate 69 55 L Respiratory Rate 16 16 Blood Pressure 118/67 120/74 Blood Pressure Mean 84 89 Pulse Ox 100 99 Oxygen Delivery Method Room Air MDM <ZACHERY Her - Last Filed: 06/22/23 19:48> MDM MDM Narrative Medical decision making narrative: Patient presents with an acute right thumb injury and 1 month of right quadriceps pain. She has tenderness and swelling over the base of the thumb. Very minimal scaphoid tenderness. Neurovascular intact. X-rays of the right upper extremity show no acute findings. Most of the pain is over her thumb but since there is slight scaphoid tenderness I provided a thumb spica splint and recommended she see orthopedics in 1 week for reevaluation. Regarding her quadriceps she has muscular tenderness on exam. There is no direct injury and no bony tenderness so no indication for x-rays. I recommended rest, ice, and [id number] analgesia. She was comfortable with this plan and discharged in stable condition. Radiography Diagnostic Testing: Clinical Impression(s) from Imaging Studies Wrist X-Ray 06/22/23 18:24 IMPRESSION: Normal x-ray examination of the wrist. Electronically Signed: Jesse Harrington MD at 19:00 EDT , Hand X-Ray 06/22/23 18:30 IMPRESSION: Normal x-ray examination of the hand. Electronically Signed: Jesse Harrington MD at 18:53 EDT Reading Location ID and State: [id number] / [employer] Tel , Service support , ED attending interpretation of right hand and wrist show no acute fracture or dislocation. <Dr. Chicho Jiang, DO - Last Filed: 06/22/23 19:55> [facility] Narrative Medical decision making narrative: Patient presents with an acute right thumb injury and 1 month of right quadriceps pain. She has tenderness and swelling over the base of the thumb. Very minimal scaphoid tenderness. Neurovascular intact. X-rays of the right upper extremity show no acute findings. Most of the pain is over her thumb but since there is slight scaphoid tenderness I provided a thumb spica splint and recommended she see orthopedics in 1 week for reevaluation. Regarding her quadriceps she has muscular tenderness on exam. There is no direct injury and no bony tenderness so no indication for x-rays. I recommended rest, ice, and [id number] analgesia. She was comfortable with this plan and discharged in stable condition. Insert attestation patient with pain in the right hand. There are some tenderness just distal to the scaphoid process. Wrist x-rays were obtained including scaphoid views but there is no acute fracture on my interpretation. Right hand x-ray my interpretation shows no acute fracture. Given patient's pain she placed in a thumb spica splint. Treatment explained to her. Orthopedic follow-up given. Impression: 1. Right wrist strain Radiography Diagnostic Testing: Clinical Impression(s) from Imaging Studies Wrist X-Ray 06/22/23 18:24 IMPRESSION: Normal x-ray examination of the wrist. Electronically Signed: Jesse Harrington MD at 19:00 EDT Reading Location ID and State: [id number] / [employer] Tel , Service support , Hand X-Ray 06/22/23 18:30 IMPRESSION: Normal x-ray examination of the hand. Electronically Signed: Jesse Harrington MD at 18:53 EDT Reading Location ID and State: [id number] / [employer] Tel , Service support , Discharge Plan Triage Chief Complaint: Lower Extremity Injury Other Complaint: Upper Extremity Injury ED Midlevel Provider: Rajani Neri ED Provider: Chicho Jiang Dx/Rx/DC Orders Clinical Impression: Strain of right quadriceps, Sprain of hand, thumb, right Instructions: ED Finger Sprain Prescriptions: No Action NK Primary Care Provider: Willow Ortiz Referrals: Willow Ortiz MD [Primary Care Provider] - Ronald Reed MD [Med Staff - Active Staff] - Activity Restrictions/Additional Instructions: Wear the thumb splint and take Tylenol or Motrin as needed. Please follow-up with orthopedics in 1 week to be reevaluated. Sometimes there is a fracture in the wrist in the area where you are tender that does not show up on the first x- ray. Disposition Disposition: Home, Self Care
--- NOTE | 2023-06-22 18:30 | RAD_ITS ---
STUDY: X-RAY - RIGHT HAND REASON FOR EXAM: Female, 28 years old. pain TECHNIQUE: 3 view(s) of the hand. COMPARISON: None. FINDINGS: Normal radiocarpal articulation. Normal distal radioulnar joint. Normal visualized carpal bones. Normal carpal articulations Normal carpometacarpal articulation of the thumb. Normal second through fifth carpometacarpal joints. Normal metacarpi. Normal metacarpophalangeal joint of the thumb. Normal interphalangeal joint of the thumb. Normal proximal and distal phalanges of the thumb. Normal metacarpophalangeal joints of the second through fifth fingers. Normal proximal and distal interphalangeal joints of the second through fifth fingers. Normal phalanges of the second through fifth fingers. The soft tissue structures are unremarkable. RAD/Hand Min 3 Views IMPRESSION: Normal x-ray examination of the hand. Electronically Signed: Jesse Harrington MD at 18:53 EDT ,
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
[2023-06-22 19:47] VITALS: BP 120/74; PULSE 55; RESP 16; TEMP 37.1; O2SAT 99
[2023-06-22 19:53] VITALS: BP 122/78; PULSE 77; RESP 16; TEMP 36.7; O2SAT 100
== END 2023-06-22 19:54 | disposition home or self-care (01) ==
PROVIDERS: Emergency Provider Student in an Organized Health Care Education/Training Program; PCP Family Medicine; Visit Provider Student in an Organized Health Care Education/Training Program
DX: S76.111A Strain of right quadriceps muscle, fascia and tendon, initial encounter (principal); S66.911A Strain of unspecified muscle, fascia and tendon at wrist and hand level, right hand, initial encounter; F17.290 Nicotine dependence, other tobacco product, uncomplicated; Y93.61 Activity, american tackle football
CPT/HCPCS: 73110; 73130; 99284